=== PATIENT | female | born 1955 | race Two or more races ===

== ENCOUNTER 2017-06-10 13:44 | Inpatient (IN) | payer MEDICAID, OTHER ==
[~2017-06-10] VITALS: Ht 165.1 cm; Wt 135.5 kg
[2017-06-10] MEDS ORDERED: LISI10TA4 PO (13:55)
[2017-06-10] MEDS ORDERED: HYDR12.55 PO (13:55)
[2017-06-10] MEDS ORDERED: APIDINJ2 SC (13:55)
[2017-06-10] MEDS ORDERED: VICT18IN SC (13:55)
[2017-06-10] MEDS ORDERED: ONDANSETRON 4MG/2ML VIAL (J2405) IV ONE ×2 (14:30→16:00)
[2017-06-10] MEDS ORDERED: MORPHINE 4 MG/ML 1ML SYRINGE IV ONE ×2 (14:30→16:00)
[2017-06-10 14:50] LABS: BASO # 0.1 K/mm3 (0.0-0.2); BASO % 0.5 % (0.0-1.0); EOS # 0.1 K/mm3 (0.0-0.50); EOS % 0.7 % (0.0-3.0); LARGE UNSTAINED CELL # 0.1 K/mm3 (0.0-0.4); LARGE UNSTAINED CELL % 0.7 % (0.0-4.0); LYMPH # 0.9 K/mm3 (1.5-4.5); LYMPH % 6.3 % (24.0-44.0); MEAN CORPUSCULAR HEMOGLOBIN 27.3 pg (27.0-33.0); MEAN CORPUSCULAR HGB CONC 32.7 g/dl (32.0-36.5); MEAN CORPUSCULAR VOLUME 83.5 fl (80.0-96.0); MONO # 0.4 K/mm3 (0.0-0.8); MONO % 3.1 % (0.0-5.0); NEUTROPHILS # 11.2 K/mm3 (1.8-7.7); NEUTROPHILS % 88.6 % (36.0-66.0); PLATELET COUNT, AUTOMATED 356 k/mm3 (150-450); RED CELL DISTRIBUTION WIDTH 14.7 % (11.5-14.5); WHITE BLOOD COUNT 12.6 K/mm3 (4.0-10.0)
[2017-06-10 15:44] LABS: ALBUMIN 3.8 GM/DL (3.2-5.2); ALKALINE PHOSPHATASE 100 U/L (45-117); ALT/SGPT 26 U/L (12-78); ANION GAP 8 MEQ/L (8-16); AST/SGOT 14 U/L (15-37); BILIRUBIN,DIRECT 0.2 MG/DL (0.0-0.2); BILIRUBIN,TOTAL 0.7 MG/DL (0.2-1.0); BLOOD UREA NITROGEN 16 MG/DL (7-18); CALCIUM LEVEL 9.6 MG/DL (8.8-10.2); CARBON DIOXIDE LEVEL 28 MEQ/L (21-32); CHLORIDE LEVEL 102 MEQ/L (98-107); CREATININE FOR GFR 0.88 MG/DL (0.55-1.02); GLOMERULAR FILTRATION RATE > 60.0 (>45); GLUCOSE, FASTING 115 MG/DL (80-110); POTASSIUM SERUM 4.2 MEQ/L (3.5-5.1); SODIUM LEVEL 138 MEQ/L (136-145); TOTAL PROTEIN 7.6 GM/DL (6.4-8.2)
--- NOTE | 2017-06-10 16:00 | REP ---
CT of the abdomen and pelvis without IV and oral contrast: There are no comparison studies. The visualized lung jones are unremarkable. The hepatic parenchyma is homogeneous. The gallbladder is distended measuring up to 5.1 cm in diameter. This is hydrops by size criteria. There is no gallbladder wall thickening. However, there are multiple small gallbladder calculi. No biliary duct dilatation is identified by CT. The pancreas and spleen are normal size and unremarkable. There is no hydronephrosis. There are no renal or ureteral calculi. The abdominal aorta is unremarkable. There is no bowel distension. Mesentery is unremarkable. Pelvis: The appendix is unremarkable. The patient has a hysterectomy. The inferior pelvis is obscured from beam hardening artifact arising from the right hip arthroplasty. This obscures the vaginal cuff and adnexa. The pelvic bowel loops are unremarkable. Impression: Distended gallbladder compatible with hydrops. Multiple gallbladder calculi. No gallbladder wall thickening or biliary duct dilatation. No pericholecystic fluid. Consider right upper quadrant ultrasound. No hydronephrosis or renal collecting system calculi. Right hip arthroplasty. Signed by Glen Angeles MD 06/10/2017 03:52 P
--- NOTE | 2017-06-10 16:56 | REP ---
REASON: Right upper quadrant pain. COMPARISON: None. Previous CT scan of the abdomen obtained earlier today showed cholelithiasis and an enlarged gallbladder. Multiple ultrasonographic images of the gallbladder show a mildly enlarged gallbladder with multiple echogenic foci within the gallbladder lumen which are mobile, casting acoustic shows consistent with cholelithiasis. There is no pericholecystic edema. The gallbladder wall is mildly thickened at 4 mm. The common bile duct measures 8 mm. Multiple ultrasonographic images of the liver show diffuse increased echoes throughout the hepatic parenchyma. The imaged portion of the pancreas and right kidney are unremarkable. IMPRESSION: Cholelithiasis and a mildly thickened gallbladder wall which is most likely from chronic change but needs to be correlated clinically. The common bile duct is upper limits of normal for the patient's age at 8 mm. Signed by Willy Morley DO 06/11/2017 04:57 P
[2017-06-10] MEDS ORDERED: SODIUM CHLORIDE 0.9% 1000 ML IV ONE (17:00)
[2017-06-10] MEDS ORDERED: FURO20TA2 PO (17:13)
[2017-06-10] MEDS ORDERED: ASPI1TAB15 PO (17:13)
[2017-06-10] MEDS ORDERED: LOVA10TA PO (17:13)
[2017-06-10] MEDS ORDERED: HYDR25TAB PO (17:13)
[2017-06-10] MEDS ORDERED: OXYB15TA PO (17:13)
[2017-06-10] MEDS ORDERED: VITMTA PO (17:13)
[2017-06-10] MEDS ORDERED: MOM 30ML SUSPENSION UDC PO PRN (17:45)
[2017-06-10] MEDS ORDERED: MORPHINE 2 MG/ML 1ML SYRINGE IV PRN (17:45)
[2017-06-10] MEDS ORDERED: ONDANSETRON 4MG/2ML VIAL (J2405) IV PRN (17:45)
[2017-06-10] MEDS ORDERED: ACETAMINOPHEN TAB 650MG DOSE (2X325MG) PO PRN (17:45)
[2017-06-10] MEDS ORDERED: GLUCOSE 4 GM CHEW TABLET PO PRN (21:00)
[2017-06-10] MEDS ORDERED: GLUCAGON FOR INJ 1 MG VIAL (J1610) SC PRN (21:00)
[2017-06-10] MEDS ORDERED: DEXTROSE 50% 50 ML SYRINGE IV PRN (21:00)
[2017-06-10] MEDS ORDERED: hydroCHLOROthiazide 25 MG TAB PO SCH (21:00)
[2017-06-10] MEDS ORDERED: LISINOPRIL 10 MG TAB PO SCH (21:00)
[2017-06-10] MEDS: NORCO, ANEXSIA 5/325MG TABLET (HYDROcodone/ACETAMINOPHEN) PO PRN (21:14)
[2017-06-10 21:45] VITALS: BP 121/68
[2017-06-10] MEDS: metroNIDAZOLE 500 MG in APPROPRIATE DILUENT 1 EA IV SCH (22:10)
[2017-06-10] MEDS: PANTOPRAZOLE 40MG INJ (PROTONIX) (C9113) IV SCH (22:10)
[2017-06-10] MEDS: LR 1,000 ML IV SCH (22:42)
[2017-06-10] MEDS: CIPROFLOXACIN 400 MG in APPROPRIATE DILUENT 1 EA IV SCH (22:42)
[2017-06-10 22:43] VITALS: BP 116/75
[2017-06-10] MEDS: HEPARIN SOD (PORCINE) 5000 UNITS/ML VIAL SC SCH (22:43)
[2017-06-10] MEDS: oxyBUTYnin *DITROPAN XL* 5 MG TABCR PO SCH (22:45)
[2017-06-10] MEDS: SIMVASTATIN 10 MG TAB PO SCH (23:00)
[2017-06-10] MEDS: FUROSEMIDE 20 MG TAB PO SCH (23:00)
[2017-06-10] MEDS: SENOKOT S TAB PO SCH (23:00)
[2017-06-11] VITALS (8 sets, daily range): BP systolic 97–121; BP diastolic 51–61
[2017-06-11] MEDS: metroNIDAZOLE 500 MG in APPROPRIATE DILUENT 1 EA IV SCH ×4 (01:00→18:00)
[2017-06-11] MEDS: LR 1,000 ML IV SCH ×2 (01:37→09:39)
[2017-06-11] MEDS: HEPARIN SOD (PORCINE) 5000 UNITS/ML VIAL SC SCH ×3 (06:23→21:33)
[2017-06-11] MEDS: KETOROLAC 30 MG/ML VIAL (J1885) IV PRN (06:30)
[2017-06-11] MEDS: NORCO, ANEXSIA 5/325MG TABLET (HYDROcodone/ACETAMINOPHEN) PO PRN (06:31)
[2017-06-11 07:00] LABS: MEAN CORPUSCULAR HEMOGLOBIN 28.3 pg (27.0-33.0); MEAN CORPUSCULAR HGB CONC 33.4 g/dl (32.0-36.5); MEAN CORPUSCULAR VOLUME 84.8 fl (80.0-96.0); RED CELL DISTRIBUTION WIDTH 14.8 % (11.5-14.5); WHITE BLOOD COUNT 8.6 K/mm3 (4.0-10.0)
[2017-06-11 07:34] LABS: ALBUMIN/GLOBULIN RATIO 0.88 (1.00-1.93); ALKALINE PHOSPHATASE 89 U/L (45-117); ALT/SGPT 24 U/L (12-78); ANION GAP 5 MEQ/L (8-16); AST/SGOT 11 U/L (15-37); BLOOD UREA NITROGEN 16 MG/DL (7-18); CALCIUM LEVEL 8.6 MG/DL (8.8-10.2); CARBON DIOXIDE LEVEL 29 MEQ/L (21-32); CHLORIDE LEVEL 104 MEQ/L (98-107); CREATININE FOR GFR 0.77 MG/DL (0.55-1.02); GLOMERULAR FILTRATION RATE > 60.0 (>45); GLUCOSE, FASTING 117 MG/DL (80-110); MAGNESIUM LEVEL 2.2 MG/DL (1.8-2.4); SODIUM LEVEL 138 MEQ/L (136-145); TOTAL PROTEIN 6.4 GM/DL (6.4-8.2)
[2017-06-11] MEDS: SENOKOT S TAB PO SCH ×2 (08:07→21:33)
[2017-06-11] MEDS: CIPROFLOXACIN 400 MG in APPROPRIATE DILUENT 1 EA IV SCH ×2 (08:07→21:33)
[2017-06-11] MEDS: PANTOPRAZOLE 40MG INJ (PROTONIX) (C9113) IV SCH (08:08)
--- NOTE | 2017-06-11 08:10 | HPE ---
DATE OF ADMISSION: 06/10/2017 CHIEF COMPLAINT: Severe abdominal pain. HISTORY OF PRESENT ILLNESS: The patient is a 62-year-old female who presents with sudden onset of sharp severe abdominal pain in the right upper quadrant radiating around to the right back that started at 7 o'clock this morning. It has been a constant persistent pain and has not improved since this morning. She has been seen in the emergency room. Vitals are stable. Labs are not very significant other than a slightly elevated white count at 12.6 and ultrasound shows gallstones with some wall thickening. Because of that, I was asked to evaluate. She says that she has had right upper quadrant abdominal pains going on for over 30 years. She has known she has had stones in the past, but she has never had any surgery for them. She is a type 1 diabetic, but she is fairly well-controlled on her own. No other significant problems. Denies any acid reflux or heartburn. No previous upper abdominal surgery. Denies any fever, sweats or chills. She has never had any pain this severe in the past. She has tried morphine numerous times in the emergency room and it is still not controlling her pain. Therefore, I was called to evaluate for possible admission and possible surgery. Currently, she has just received another dose of morphine and she is still saying her pain is 12 out of 10. She is exquisitely tender on exam. No other symptoms at this time. She denies any recent travel. No recent trauma. No change in diet. The only other abdominal surgeries were hysterectomy for uterine cancer that was done a couple of years ago. She underwent radiation postsurgery, but she has not had any other problems since then. ALLERGIES: TAPE. MEDICATIONS: Please see med record. PAST MEDICAL HISTORY: 1. Type 1 diabetes. 2. Hypertension. 3. Hyperlipidemia. 4. Uterine cancer. PAST SURGICAL HISTORY: 1. Total hysterectomy. 2. Right hip surgery. SOCIAL HISTORY: Denies drug, alcohol or tobacco abuse. FAMILY HISTORY: Noncontributory. REVIEW OF SYSTEMS: Per positives and negatives as stated in history of present illness (HPI). PHYSICAL EXAMINATION: General: Alert and oriented times three. No acute distress. Vitals: Temperature 99, pulse 76, respirations 20, blood pressure 119/63, pulse oximetry 100 on room air . HEENT: Pupils equal round and react to light accommodation. Heart: S1, S2. Regular rate and rhythm. Lungs: Clear to auscultation bilaterally. Abdomen: Soft. Tender to palpation right upper quadrant and right flank. There is localized guarding. No signs of generalized peritonitis. Extremities: No clubbing, cyanosis or edema. LABORATORY DATA: White count 12.6, hemoglobin 13.5, platelets 356, creatinine 0.88, glucose 115, total bilirubin 0.7 and direct 0.2, AST 14, ALT 26, lipase 131. IMAGING STUDIES: Ultrasound of the gallbladder shows cholelithiasis and a mildly thickened gallbladder wall, likely from chronic changes. No signs of pericholecystic fluid. Common bile duct [address] of abdomen and pelvis showed a distended gallbladder compatible with likely hydrops. Multiple gallbladder calculi. No signs of wall thickening or biliary duct dilatation. No hydronephrosis or renal collecting system calculi. ASSESSMENT/PLAN: The patient is 62-year-old female, type 1 diabetic, with severe right upper quadrant abdominal pain, slightly elevated white count and otherwise her labs are essentially normal. Ultrasound showed stones with a mildly thickened gallbladder wall and dilated gallbladder on CT scan. This is all likely related to acute calculus cholecystitis with a history of chronic cholecystitis. Recommendation at this time is for hospital admission. We will continue to monitor the patient overnight. I will have the medicine team consult for her to keep track of her diabetes. She can have clear liquids tonight. She will be nothing by mouth (n.p.o.) after midnight. Will plan for likely laparoscopic cholecystectomy tomorrow afternoon.
--- NOTE | 2017-06-11 10:32 | CR ---
DATE OF CONSULTATION: 06/10/2017 CHIEF COMPLAINT: 62-year-old female coming in complaining of flank pain and noted to have acute cholecystitis, admitted under general surgery and hospitalist was consulted for medical management. HISTORY OF PRESENT ILLNESS: This is a 62-year-old female with significant past medical history of insulin-dependent diabetes, who has an insulin pump and the patient is well educated and compliant with her machine with comorbidities of hypertension, hyperlipidemia, bladder incontinence, and history of uterine cancer, status post hysterectomy, currently no acute disease, who presents complaining of back pain and was diagnosed with acute cholecystitis. The patient is resting comfortably in the emergency room. Denies any acute nausea or vomiting at this time, but did have a history of nausea at home. At this time, has tolerable pain. No acute complaints at this time. The patient describes a pain that is constant, achy and squeezing like symptoms. The patient does have a history of gallbladder history for the past 20 years but has done well without any acute problems until today. Denies any fever, diarrhea, or dysuria. REVIEW OF SYSTEMS: Ten-point review of systems is negative other than those described in the history of present illness. PAST MEDICAL HISTORY: Significant for uterine cancer, status post hysterectomy. Currently no active disease. Hypertension, diabetes, hyperlipidemia, bladder incontinence. SURGICAL HISTORY: Includes hysterectomy, right hip replacement, carpal tunnel surgery of the hands. FAMILY MEDICAL HISTORY: Significant for father with lung cancer. Mother with chronic obstructive pulmonary disease (COPD), hypertension and suspected diabetes. They were both smokers. SOCIAL HISTORY: The patient denies smoking, drinking or drug abuse. ALLERGIES: TAPE. MEDICATIONS FROM HOME: - Apidra, using insulin pump - aspirin 81 mg by mouth at night - furosemide 20 mg daily - hydrochlorothiazide 25 mg by mouth at night - Victoza 1.8 subcutaneously at night - Lisinopril 10 mg at night - Lovastatin 10 mg by mouth at night - multivitamin one tablet at nighttime - oxybutynin 15 mg by mouth at night PHYSICAL EXAMINATION: In terms of physical examination, her vital signs are as follows: Temperature 98.6, heart rate 76, respiratory rate of 18, saturating 96% on room air. Blood pressure is 116/75. These are the last vitals. HEENT: Normocephalic. No trauma noted. Inspection of the eyes, nose and throat normal. Pupils equal, round, and reactive to light and accommodation. Mucosa is moist. Neck is supple. No tracheal deviation. CARDIAC: S1, S2. Regular rate and rhythm. Pulses present. LUNGS: Equal air entry. Denies any wheezes, rales or rhonchi. ABDOMEN: Soft. Tender on palpation, especially in the right upper quadrant. Slight guarding but not peritoneal rigidity. EXTREMITIES: Lower extremities with no significant pitting edema at this time. NEUROLOGIC: The patient is currently awake, alert, oriented times three. Cranial nerves are grossly intact. Motor and sensory is intact. PSYCHIATRIC: Normal mood and affect for current situation. Very well aware of her medical condition and treatments. DIAGNOSTIC STUDIES: The patient had a WBC of 12.6, hemoglobin and hematocrit within normal, platelet count within normal. Complete metabolic profile has been normal except for a glucose of 115. AST is 14. UA did show trace ketones, otherwise negative for urinary tract infection (UTI). The patient did have an ultrasound of her gallbladder. As per radiology, this showed cholelithiasis and a mildly thickened gallbladder wall, which is likely from the chronic changes but needs to be correlated clinically. Also, the common bile duct is in the upper limits of normal for the patient's age at 8 mm. The patient also had a CT of the abdomen, which showed as per radiology distended gallbladder compatible with eye drops, multifocal gallbladder calculi. No gallbladder wall thickening or biliary duct dilatation. No pericholecystic fluid. Consider right upper quadrant ultrasound. No hydronephrosis or renal collecting system calculi. Right hip arthroplasty. ASSESSMENT AND PLAN: This is a pleasant 62-year-old female with a significant past medical history of diabetes utilizing insulin pump, hypertension, hyperlipidemia, bladder incontinence, who was being admitted under the surgical care for acute cholecystitis. The hospitalist was consulted for medical management. 1. Acute cholecystitis. Defer further management to Dr. Blackwell. The patient is on Cipro and Flagyl at this time. 2. Diabetes. Insulin dependent. The patient is very compliant with insulin pump and she mentions that she has utilized insulin pump during surgery in the past and requests that this be done again. I did explain the risk and benefit, but due to the patient's high knowledge of her insulin pump and history of having had insulin pump usage in the past surgeries, we will have a nursing order for the patient to resume her insulin pump under her own care if okay with the surgeon. The patient is going to have surgery and therefore may move the position of the insulin pump as directed by Dr. Blackwell as needed. 3. Hypertension. Lisinopril, hydrochlorothiazide and furosemide was resumed. Closely monitor renal function and for dehydration. 4. Hyperlipidemia. On statin. 5. Bladder incontinence. Oxybutynin. 6. Deep vein thrombosis (DVT) prophylaxis as per surgery. Aspirin has been held, as per surgery. We will defer reinitiation of anticoagulant to the surgeon.
--- NOTE | 2017-06-11 12:10 | IPN ---
DATE OF VISIT: 06/11/2017 SUBJECTIVE: Patient seen and examined in the room today. Patient stated her achy type of pain still persists from the right back, radiate to the right abdomen. The pain has been persistent with direct pressure, but it has been improving and since admission it is more tolerable now. Still having intermittent nausea. No events reported since admission. OBJECTIVE: VITAL SIGNS: Temperature 99, pulse is 77, respiration 20, blood pressure is 97/52, pulse oximetry is 93% in room air. GENERAL: Morbid obese. No sign of acute distress. Alert and oriented times three. HEENT: Normocephalic, atraumatic. Extraocular motor grossly intact. CARDIOVASCULAR: Positive S1, S2, regular rate. LUNGS: Clear to auscultation bilaterally. ABDOMEN: Tenderness to palpation in the right upper quadrant. No rebound. Abdomen is soft. Bowel sounds present. EXTREMITIES: No edema. No sign of cyanosis. LABORATORY DATA: WBC is 8.6, hemoglobin 11.3, hematocrit 33.9, platelet count is 275. Sodium 138, potassium 4,chloride is 104, carbon dioxide 29, BUN 16, creatinine 0.77, GFR greater than 60, fasting glucose 117, calcium is 8.6, magnesium 2.2, total bilirubin is 1, AST 11, ALT 24, alkaline phosphatase 89, total protein 6.4, albumin 3. ASSESSMENT AND PLAN: 1. Acute calculus cholecystitis with a history of chronic cholecystitis. Patient has a scheduled laparoscopic procedure by Dr. Blackwell today in the afternoon. At the baseline, patient does not have any significant cardiovascular disease and patient denies any significant pulmonary problem. At the baseline, patient is able to walk more than a two block distance and climb not more than one flight of stair. Patient also had surgery in the past and no issue with anesthesia. Patient do have type 1 diabetes. Patient is also using insulin pump. Her glucose level is in very good control. At this moment, patient is optimized for the procedure. 2. Type 1 diabetes. Patient has an insulin pump. Patient has expressed utilizing the insulin pump during surgery in the past and per documentation patient requests. This will done again for this current procedure. Will refer the discussion to the surgeon and the patient. Empirically, patient is cover with Cipro and Flagyl. 3. Hypertension. At home, patient is taking lisinopril, hydrochlorothiazide and Lasix. Currently, patient is nothing by mouth, started on intravenous (IV) fluid. This morning patient actually have soft blood pressure. Will hold all the blood pressure medication. We will resume it at the appropriate time. 4. History of hyperlipidemia. On statins. 5. History of bladder incontinence. On oxybutynin. 6. Deep venous thrombosis (DVT) prophylaxis as per the surgeon. Currently, patient has thromboembolic deterrent (MANJULA), sequential and compression device.
--- NOTE | 2017-06-11 13:58 | ECGEPIP ---
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
[2017-06-11] MEDS ORDERED: BUPIVACAINE/EPIN 0.25% 30 ML VIAL As Ordered ONE (16:20)
[2017-06-11] MEDS ORDERED: PROPOFOL 200 MG/20 ML VIAL As Ordered ONE (16:50)
[2017-06-11] MEDS ORDERED: ROCURONIUM BROMIDE 50 MG/5 ML VIAL/SYRINGE As Ordered ONE ×2 (16:50→18:07)
[2017-06-11] MEDS ORDERED: LIDOCAINE 2% INJ 100 MG/5 ML SDV (FOR ANES.) As Ordered ONE (16:50)
[2017-06-11] MEDS ORDERED: fentaNYL 250 MCG/5 ML INJECTION (J3010) As Ordered ONE (16:51)
[2017-06-11] MEDS ORDERED: MIDAZOLAM INJ 2 MG/2 ML VIAL (J2250) As Ordered ONE (16:51)
[2017-06-11] MEDS ORDERED: PHENYLephrine HCL 500 MCG/5 ML (100MCG/ML) SYRINGE (J2370) As Ordered ONE ×2 (17:28→18:07)
[2017-06-11] MEDS ORDERED: GLYCOPYRROLATE INJ 0.2 MG/ML 2 ML VIAL As Ordered ONE (17:37)
[2017-06-11] MEDS ORDERED: NEOSTIGMINE 1MG/ML 5 ML SYRINGE (J2710) As Ordered ONE (17:37)
[2017-06-11] MEDS ORDERED: ONDANSETRON 4MG/2ML VIAL (J2405) As Ordered ONE (17:38)
[2017-06-11] MEDS ORDERED: KETOROLAC 60 MG/2 ML VIAL (J1885) As Ordered ONE (17:38)
[2017-06-11] MEDS ORDERED: SUGAMMADEX SODIUM 500 MG/5 ML VIAL (BRIDION) As Ordered ONE (18:27)
[2017-06-11] MEDS ORDERED: fentaNYL 100 MCG/2 ML INJECTION (J3010) As Ordered ONE (19:21)
[2017-06-11] MEDS: fentaNYL 100 MCG/2 ML INJECTION (J3010) IV PRN ×2 (19:26→19:35)
[2017-06-11] MEDS ORDERED: LR 1,000 ML IV SCH (19:30)
[2017-06-11] MEDS ORDERED: PERCOCET 5MG/325MG TAB PO PRN (19:30)
[2017-06-11] MEDS ORDERED: ONDANSETRON 4MG/2ML VIAL (J2405) IV PRN (19:30)
[2017-06-11] MEDS: SIMVASTATIN 10 MG TAB PO SCH (21:00)
[2017-06-11] MEDS: oxyBUTYnin *DITROPAN XL* 5 MG TABCR PO SCH (21:34)
[2017-06-12] MEDS: metroNIDAZOLE 500 MG in APPROPRIATE DILUENT 1 EA IV SCH ×2 (00:10→05:30)
[2017-06-12] MEDS: NORCO, ANEXSIA 5/325MG TABLET (HYDROcodone/ACETAMINOPHEN) PO PRN ×3 (00:17→17:11)
[2017-06-12 00:30] VITALS: BP 91/55
[2017-06-12 04:00] VITALS: BP 98/60
[2017-06-12] MEDS: LR 1,000 ML IV SCH (05:31)
[2017-06-12] MEDS: HEPARIN SOD (PORCINE) 5000 UNITS/ML VIAL SC SCH ×3 (05:31→21:01)
[2017-06-12] MEDS: KETOROLAC 30 MG/ML VIAL (J1885) IV PRN (05:43)
[2017-06-12 06:47] LABS: MEAN CORPUSCULAR HEMOGLOBIN 27.9 pg (27.0-33.0); MEAN CORPUSCULAR HGB CONC 32.7 g/dl (32.0-36.5); MEAN CORPUSCULAR VOLUME 85.1 fl (80.0-96.0); RED CELL DISTRIBUTION WIDTH 14.5 % (11.5-14.5); WHITE BLOOD COUNT 7.8 K/mm3 (4.0-10.0)
[2017-06-12 07:13] LABS: ALBUMIN 2.5 GM/DL (3.2-5.2); ALBUMIN/GLOBULIN RATIO 0.71 (1.00-1.93); ALKALINE PHOSPHATASE 114 U/L (45-117); ALT/SGPT 47 U/L (12-78); ANION GAP 5 MEQ/L (8-16); AST/SGOT 41 U/L (15-37); BILIRUBIN,TOTAL 1.6 MG/DL (0.2-1.0); BLOOD UREA NITROGEN 15 MG/DL (7-18); CALCIUM LEVEL 8.2 MG/DL (8.8-10.2); CARBON DIOXIDE LEVEL 30 MEQ/L (21-32); CHLORIDE LEVEL 102 MEQ/L (98-107); CREATININE FOR GFR 0.92 MG/DL (0.55-1.02); GLOMERULAR FILTRATION RATE > 60.0 (>45); GLUCOSE, FASTING 175 MG/DL (80-110); MAGNESIUM LEVEL 1.7 MG/DL (1.8-2.4); POTASSIUM SERUM 4.3 MEQ/L (3.5-5.1); SODIUM LEVEL 137 MEQ/L (136-145)
[2017-06-12 08:00] VITALS: BP 99/58
[2017-06-12] MEDS: SENOKOT S TAB PO SCH ×2 (08:16→21:01)
[2017-06-12] MEDS: PANTOPRAZOLE 40MG INJ (PROTONIX) (C9113) IV SCH (08:17)
[2017-06-12 08:54] LABS: BILIRUBIN,DIRECT 0.7 MG/DL (0.0-0.2)
[2017-06-12] MEDS: FUROSEMIDE 20 MG TAB PO SCH (09:00)
[2017-06-12 12:00] VITALS: BP 94/57
[2017-06-12 16:00] VITALS: BP 124/61
[2017-06-12] MEDS ORDERED: MAG SULF 1GM/100ML (MAG RUN) 1 GM in APPROPRIATE DILUENT 1 EA IV ONE (16:00)
--- NOTE | 2017-06-12 16:28 | IPN ---
DATE: 06/12/2017 SUBJECTIVE: The patient is seen and examined in the room today. The patient had a cholecystectomy performed yesterday night. In the morning, the patient still feels very tired because of pain medication and the surgery. Denies any acute complaints. Pain is manageable. No overnight events reported. OBJECTIVE: VITAL SIGNS: Temperature is 98.1, pulse is 72, respirations 20, blood pressure is 99/58, pulse oximetry is 98% with 2 liters nasal cannula. GENERAL: Fatigued. Alert and oriented times three. HEENT: Normocephalic, atraumatic. Extraocular motor grossly intact. CARDIOVASCULAR: Distant heart sounds. Positive S1, S2. Regular rate. LUNGS: Clear to auscultation bilaterally. ABDOMEN: There is a small dressing in the front abdomen. Dressing is clean and dry. Bowel sounds present. Abdomen is soft. EXTREMITIES: No edema. No sign of cyanosis. LABORATORY DATA: WBC 7.8, hemoglobin 10.9, hematocrit 33.3, platelet count is 254. Sodium is 137, potassium 4.3, chloride is 102, carbon dioxide 30, BUN 15, creatinine 0.92, GFR greater than 60, fasting glucose is 175, calcium is 8.2, magnesium 1.7, total bilirubin is 1.6, direct bilirubin is 0.7, AST 41, ALT is 47, alkaline phosphatase is 114, total protein 6, albumin 2.5, lipase is 67. ASSESSMENT AND PLAN: 1. Acute calculus cholecystitis with a history of chronic cholecystitis. The patient had a laparoscopic procedure by Dr. Blackwell yesterday evening. The patient recovered well from the procedure. Will defer the diet, pain control, activity level to the primary surgical team. 2. Type 1 diabetes. The patient had an insulin pump, which is running right now. Will continue to follow the patient's glucose. 3. Hypertension. Currently, the patient is hypotensive compared to her baseline. At home, the patient is taking Lasix 20 mg by mouth every 2 days, hydrochlorothiazide 25 mg by mouth nightly and lisinopril 10 mg by mouth nightly. Due to the patient's systolic blood pressure, those blood pressure medications will continue to be on hold. 4. History of bladder incontinence, on oxybutynin. 5. Deep vein thrombosis (DVT) prophylaxis. The patient has thromboembolism deterrents (TEDs), sequential compression device.
[2017-06-12 20:00] VITALS: BP 105/59
[2017-06-12] MEDS: SIMVASTATIN 10 MG TAB PO SCH (21:00)
[2017-06-12] MEDS: oxyBUTYnin *DITROPAN XL* 5 MG TABCR PO SCH (21:01)
[2017-06-13] VITALS: BP 104/52
[2017-06-13] MEDS: NORCO, ANEXSIA 5/325MG TABLET (HYDROcodone/ACETAMINOPHEN) PO PRN (03:18)
[2017-06-13 04:00] VITALS: BP 106/63
[2017-06-13] MEDS: HEPARIN SOD (PORCINE) 5000 UNITS/ML VIAL SC SCH (05:32)
[2017-06-13 08:00] VITALS: BP 138/70
--- NOTE | 2017-06-13 08:10 | RO ---
DATE OF PROCEDURE: 06/11/2017 PREOPERATIVE DIAGNOSIS: Acute calculus cholecystitis. POSTOPERATIVE DIAGNOSIS: Acute calculus cholecystitis. PROCEDURE: Laparoscopic cholecystectomy. SURGEON: Dr. Glen Blackwell BIBLIOGRAPHIC SERVICES SPECIALIST: Dr. Abhilash Puente ANESTHESIA: General. ESTIMATED BLOOD LOSS: 10 mL. COMPLICATIONS: None. INDICATIONS FOR PROCEDURE: The patient is a 62-year-old female, type 1 diabetic, presents with severe right upper quadrant abdominal pain, found to have enlarged gallbladder with multiple stones and a thickened wall. She was diagnosed with acute calculus cholecystitis. Recommendation was to proceed with laparoscopic, possible open cholecystectomy. Risks and benefits of procedure not limited to but including bleeding, infection, hernia formation, damage to surrounding structures, need for further surgery discussed in detail with the patient, informed consent was obtained and procedure was planned. DESCRIPTION OF PROCEDURE: The patient was brought back to operating room three after sufficient sedation. The abdomen was sterilely prepped and draped. Next, a time-out was done to confirm proper patient, proper procedure. Following that, a stab incision was made in the left upper quadrant at Alejo's point. Veress needle was inserted and the abdomen was insufflated to 15 mmHg. Next, a 5 mm Optiview port was used to gain access to the abdomen superior to the umbilicus. Once the abdomen was entered, Veress needle site was examined. There were no signs of injury. Veress needle was then removed, 11 mm port placed subxiphoid, two 5 mm ports right upper quadrant. Gallbladder fundus was elevated up towards the right shoulder. A small hole was created in the gallbladder due to hydrops, and the fluid was allowed to leave so that it could be grasped easier. Omental adhesions were bluntly dissected free from the gallbladder fossa. Cystic duct and cystic artery were both then dissected free using blunt dissection. They were both doubly clipped and cut. Gallbladder was removed from the gallbladder fossa using electrocautery and brought out through the 11 mm port site in a 10 mm Endo Catch bag. Electrocautery was then used to control hemostasis on the liver bed that had a little bit of bleeding, 3 grams of Micheal was then placed; this controlled all the bleeding. Abdomen right upper quadrant was irrigated, abdomen was then desufflated. Skin incisions were closed with #4-0 Vicryl subcuticular sutures. The abdomen was cleaned and dried. Steri-Strips, 4x4 and tape were applied, thus ending procedure.
[2017-06-13 08:25] LABS: MEAN CORPUSCULAR HEMOGLOBIN 27.8 pg (27.0-33.0); MEAN CORPUSCULAR HGB CONC 32.5 g/dl (32.0-36.5); MEAN CORPUSCULAR VOLUME 85.6 fl (80.0-96.0); RED CELL DISTRIBUTION WIDTH 14.9 % (11.5-14.5); WHITE BLOOD COUNT 10.6 K/mm3 (4.0-10.0)
[2017-06-13 08:42] LABS: ALBUMIN 2.3 GM/DL (3.2-5.2); ALBUMIN/GLOBULIN RATIO 0.64 (1.00-1.93); ALKALINE PHOSPHATASE 136 U/L (45-117); ALT/SGPT 39 U/L (12-78); ANION GAP 8 MEQ/L (8-16); AST/SGOT 26 U/L (15-37); BILIRUBIN,TOTAL 0.8 MG/DL (0.2-1.0); BLOOD UREA NITROGEN 16 MG/DL (7-18); CALCIUM LEVEL 8.2 MG/DL (8.8-10.2); CARBON DIOXIDE LEVEL 27 MEQ/L (21-32); CHLORIDE LEVEL 102 MEQ/L (98-107); CREATININE FOR GFR 0.65 MG/DL (0.55-1.02); GLOMERULAR FILTRATION RATE > 60.0 (>45); GLUCOSE, FASTING 137 MG/DL (80-110); MAGNESIUM LEVEL 2.3 MG/DL (1.8-2.4); POTASSIUM SERUM 3.6 MEQ/L (3.5-5.1); SODIUM LEVEL 137 MEQ/L (136-145); TOTAL PROTEIN 5.9 GM/DL (6.4-8.2)
[2017-06-13] MEDS: PANTOPRAZOLE 40MG INJ (PROTONIX) (C9113) IV SCH (08:49)
[2017-06-13] MEDS: SENOKOT S TAB PO SCH (08:49)
[2017-06-13] MEDS ORDERED: MAPA325T3 PO (11:08)
[2017-06-13] MEDS ORDERED: diphenhydrAMINE 25 MG CAP PO ONE (12:15)
[2017-06-13] MEDS ORDERED: BENA25TA10 PO (14:26)
[2017-06-13 16:00] VITALS: BP 143/75
--- NOTE | 2017-06-13 21:26 | IPN ---
DATE: 06/13/2017 SUBJECTIVE: Patient seen and examined in the morning and in the afternoon at the time of discharge. This morning during encounter the patient is complaining about weakness. The patient also complained about the rash and itchiness of right upper extremity and mid abdomen. The patient stated she has a history of allergy to the ADHESIVE ON THE TAPE. Later, the patient was planned for discharge in the afternoon. I received a notice from the nurse, stating the patient has decreased muscle strength and that she is afraid the patient may not be able to be discharged safely. I went to examine the patient personally. The patient does demonstrate some fullness when she tried to put her sock and shoe to her left foot. The patient walked limited short distance from the chair to the hospital bed. Due to concern for weakness, we recommended the patient to stay in the hospital if patient does not feel comfortable going home. Patient insists that she is feeling better and that she has the capacity to maintain her activities of daily living and she can take care of herself, and later the charge nurse and I walked with the patient in the hallway, and the patient did demonstrate gait stability through the long hallway in the pediatric department and later patient was discharged home. OBJECTIVE: VITAL SIGNS: Temperature is 99.3, pulse 87, respirations 18, blood pressure 143/75, pulse oximetry 97% on room air. GENERAL: Fatigued. No sign of discharge. Patient is alert and oriented times three. HEENT: Normocephalic, atraumatic. Extraocular motor grossly intact. CARDIOVASCULAR: Distant heart sounds. Positive S1, S2. Regular rate. LUNGS: Clear to auscultation bilaterally. ABDOMEN: There are multiple small dressings (five of them) in the front abdomen, dressings clean and dry; however, there is some rash and erythema along the mid lower abdomen. Abdomen is soft. DERMATOLOGIC: There is a rash located right proximal upper extremity just below the right arm pit. Multiple scratch phelps noted in the area. There is also multiple rash along the mid lower abdomen. MUSCULOSKELETAL: Positive swelling of bilateral lower extremities. LABORATORY DATA: WBC 10.6, hemoglobin 10.5, hematocrit 32.4, platelet count 262. Sodium 137, potassium 3.6, chloride 102, carbon dioxide 27, BUN 16, creatinine 0.65, GFR greater than 60, fasting glucose 137, calcium 8.2, magnesium 2.3. Total bilirubin is 0.8, AST 26, ALT 39, alkaline phosphatase 136. Total protein is 5.9, albumin 2.3. ASSESSMENT AND PLAN: 1. Acute calculous cholecystitis with history of chronic cholecystitis. The patient had a laparoscopic procedure by Dr. Blackwell. Today is postoperative day two. The patient had demonstrated gait instability and the patient is discharged today. 2. Type 2 diabetes on insulin pump. Blood glucose has been in the satisfactory control. 3. Hypertension. The patient is taking Lasix. Due to soft blood pressure, the patient is recommended to hold her lisinopril until evaluated by the primary care provider. 4. History of bladder incontinence. On oxybutynin. 5. Chronic lymphedema from a prior abdominal surgery resulting in chronic bilateral lower extremity swelling. The patient has followup with lymphedema clinic multiple times out of state. The patient recently moved to [place], [place]. 6. Deep venous thrombosis (DVT) prophylaxis. The patient is discharged home today. DISPOSITION: The patient recently moved to [place]. The patient has not established with any primary care provider. Per patient, there may be issue regarding her insurance that resulted in delaying establishing with [facility]. Our department staff have kindly assisted and established a new primary care provider for the patient. The patient will follow in [facility] on 06/24[facility]2017. The patient is scheduled to followup with Dr. Blackwell for postoperative followup on 06/26/2017.
--- NOTE | 2017-06-17 15:30 | DSES ---
DATE OF ADMISSION: 06/10/2017 DATE OF DISCHARGE: 06/13/2017 ADMISSION DIAGNOSIS: Acute cholecystitis. DISCHARGE DIAGNOSIS: Acute cholecystitis. HOSPITAL COURSE: The patient is a 62-year-old female who presented to the emergency room on 06/10/2017 with the findings of acute cholecystitis. She had an elevated white count of 12.6, severe right upper quadrant pain, and she had ultrasound findings showing a thickened gallbladder wall and multiple stones. Recommendation was to proceed with laparoscopic cholecystectomy. She was taken to the operating room for laparoscopic cholecystectomy on 06/11/2017. She had an uneventful surgery and no complications. Postoperatively, she was started back on a regular diet and she was able to ambulate. IV fluids were stopped. She continued to improve. On the morning of 06/12/2017, her laboratories were better. Her pain was essentially gone from the right upper quadrant. She just had incisional site pain. No other complications. She just felt unmotivated. It was very difficult to get her up to walk in the halls or get out of bed, so she was kept overnight one more day. By the morning of 06/13/2017, she still felt unmotivated. I gave her the option of physical therapy evaluation and possible discharge to a halfway versus going home on her own. She was hesitant and did not feel like going home. The nurses reported that she was unstable on her feet and it took her almost two hours to get her shoes on when she was getting out of bed. However, when we told her that she was going to have to stay overnight again, she finally got up and started to walk around the halls without any difficulty and looked completely stable on her feet. The nursing supervisor blood donor recruiters was also there to witness that. It appeared that she is just having lack of motivation rather than a lack of ability, so she was discharged home and will followup with me in the office in two weeks.
== END 2017-06-13 18:25 | disposition home or self-care (01) | DRG 263 ==
LOC: M ED 15:02 → M ED INP 17:37 → M PED 21:44
PROVIDERS: ADMIT Surgery; ATTEND Surgery
PROC: 0FT44ZZ Resection of Gallbladder, Percutaneous Endoscopic Approach (ICD-10-PCS; principal; 2017-06-11 18:00)
DX: K81.0 Acute cholecystitis (principal); I10 Essential (primary) hypertension; E10.9 Type 1 diabetes mellitus without complications; E78.4 Other hyperlipidemia; Z85.42 Personal history of malignant neoplasm of other parts of uterus; Z79.899 Other long term (current) drug therapy; Z79.82 Long term (current) use of aspirin; R32 Unspecified urinary incontinence; E66.01 Morbid (severe) obesity due to excess calories; Z68.42 Body mass index [BMI] 45.0-49.9, adult

== ENCOUNTER 2017-06-16 11:51 | Emergency (ER) | payer MEDICAID, SELFPAY ==
[~2017-06-16] VITALS: Ht 165.1 cm; Wt 127.2 kg
[~2017-06-16 11:51] MED LIST: APIDINJ2 SC; ASPI1TAB15 PO; BENA25TA10 PO; FURO20TA2 PO; HYDR12.55 PO; HYDR25TAB PO; LISI10TA4 PO; LOVA10TA PO; MAPA325T3 PO; OXYB15TA PO; VICT18IN SC; VITMTA PO
[2017-06-16] MEDS ORDERED: LOPE2TAB3 PO (12:16)
[2017-06-16] MEDS ORDERED: NS 1,000 ML IV ONE (14:15)
[2017-06-16 15:11] LABS: BASO # 0.1 K/mm3 (0.0-0.2); BASO % 0.5 % (0.0-1.0); EOS # 0.4 K/mm3 (0.0-0.50); EOS % 3.8 % (0.0-3.0); LARGE UNSTAINED CELL # 0.2 K/mm3 (0.0-0.4); LARGE UNSTAINED CELL % 1.9 % (0.0-4.0); LYMPH # 1.3 K/mm3 (1.5-4.5); LYMPH % 9.7 % (24.0-44.0); MEAN CORPUSCULAR HEMOGLOBIN 27.7 pg (27.0-33.0); MEAN CORPUSCULAR HGB CONC 33.2 g/dl (32.0-36.5); MEAN CORPUSCULAR VOLUME 83.5 fl (80.0-96.0); NEUTROPHILS # 8.2 K/mm3 (1.8-7.7); PLATELET COUNT, AUTOMATED 351 k/mm3 (150-450); RED CELL DISTRIBUTION WIDTH 14.7 % (11.5-14.5)
[2017-06-16 15:18] LABS: ALBUMIN 2.4 GM/DL (3.2-5.2); ALBUMIN/GLOBULIN RATIO 0.73 (1.00-1.93); ALKALINE PHOSPHATASE 230 U/L (45-117); ALT/SGPT 44 U/L (12-78); AMYLASE 11 U/L (25-115); ANION GAP 10 MEQ/L (8-16); AST/SGOT 44 U/L (15-37); BILIRUBIN,DIRECT 0.3 MG/DL (0.0-0.2); BILIRUBIN,TOTAL 0.7 MG/DL (0.2-1.0); BLOOD UREA NITROGEN 10 MG/DL (7-18); CALCIUM LEVEL 8.6 MG/DL (8.8-10.2); CARBON DIOXIDE LEVEL 27 MEQ/L (21-32); CHLORIDE LEVEL 103 MEQ/L (98-107); CREATININE FOR GFR 0.69 MG/DL (0.55-1.02); GLOMERULAR FILTRATION RATE > 60.0 (>45); GLUCOSE, FASTING 143 MG/DL (80-110); POTASSIUM SERUM 4.1 MEQ/L (3.5-5.1); SODIUM LEVEL 140 MEQ/L (136-145); TOTAL PROTEIN 5.7 GM/DL (6.4-8.2)
[2017-06-16] MEDS ORDERED: BISACODYL 10 MG SUPP PR ONE (16:00)
[2017-06-16] MEDS ORDERED: SIMETHICONE 80 MG CHEW TAB PO ONE (16:00)
--- NOTE | 2017-06-16 16:06 | REP ---
ABDOMINAL SERIES: Supine and erect views of the abdomen demonstrate no free air and no compelling evidence for obstruction. Air is seen throughout the GI tract in a nonspecific pattern. Moderate fecal material is seen throughout the colon. Multiple mildly small bowel loops are seen. Metallic prosthesis was noted on the right hip. An accompanying view of the chest demonstrates basilar subsegmental atelectatic change. IMPRESSION: No free air. No compelling evidence for obstruction. Nonspecific bowel gas pattern. Moderate fecal retention. Bilateral lower lobe subsegmental atelectasis. Signed by Glen Ribeiro MD 06/17/2017 08:43 A
[2017-06-16] MEDS ORDERED: COLA100C5 PO (18:02)
[2017-06-16] MEDS ORDERED: MIRA3350 PO (18:02)
[2017-06-16] MEDS ORDERED: SIME1CAP5 PO (18:03)
[2017-06-16 18:16] VITALS: BP 119/58
== END 2017-06-16 18:20 | disposition home or self-care (01) ==
LOC: M ED 11:51
DX: K59.00 Constipation, unspecified (principal); E78.00 Pure hypercholesterolemia, unspecified; I10 Essential (primary) hypertension; E11.9 Type 2 diabetes mellitus without complications; Z85.42 Personal history of malignant neoplasm of other parts of uterus; Z79.82 Long term (current) use of aspirin; Z79.899 Other long term (current) drug therapy; Z91.89 Other specified personal risk factors, not elsewhere classified

== ENCOUNTER → 2017-08-20 | Outpatient (CLI) | payer OTHER ==
[~2017-08-20] MED LIST changes: +COLA100C5 PO; +LOPE2TAB3 PO; +MIRA3350 PO; +SIME1CAP5 PO
--- NOTE | 2017-08-21 15:23 | REP ---
Clinical: Hip pain. Technique: Neutral and frog lateral views of the right hip. Findings: Right hip arthroplasty. No acute fracture or dislocation. No periarticular calcifications or osteophytosis noted. Impression: Right hip replacement. Signed by Nathan Mosqueda MD 08/21/2017 03:14 P
== END ==
LOC: M RAD 11:53
PROVIDERS: ATTEND Family Medicine
DX: Z96.641 Presence of right artificial hip joint (principal)

== ENCOUNTER → 2017-08-29 | Outpatient (REF) | payer OTHER ==
[2017-08-29 14:20] LABS: ANION GAP 7 MEQ/L (8-16); BLOOD UREA NITROGEN 14 MG/DL (7-18); CALCIUM LEVEL 9.3 MG/DL (8.8-10.2); CARBON DIOXIDE LEVEL 29 MEQ/L (21-32); CHLORIDE LEVEL 101 MEQ/L (98-107); GLOMERULAR FILTRATION RATE > 60.0 (>45); GLUCOSE, FASTING 82 MG/DL (80-110); POTASSIUM SERUM 4.4 MEQ/L (3.5-5.1); SODIUM LEVEL 137 MEQ/L (136-145)
== END ==
LOC: M SFHCPLAZ 10:33
PROVIDERS: ATTEND Family Medicine
DX: E11.9 Type 2 diabetes mellitus without complications (principal)

== ENCOUNTER 2017-09-08 10:24 | Outpatient (RCR) | payer OTHER | END 2017-09-09 | LOC: M PT 10:24 | PROVIDERS: ATTEND Family Medicine | DX: Z51.89 Encounter for other specified aftercare (principal); Z51.81 Encounter for therapeutic drug level monitoring ==

== ENCOUNTER → 2017-09-29 | Outpatient (CLI) | payer OTHER ==
[~2017-09-29] MED LIST changes: +GASTROGRAFIN SOLUTION 30ML (Q9963) As Ordered ONE; +ISOVUE-370 76% 100ML VIAL (Q9967) As Ordered ONE
--- NOTE | 2017-09-29 10:17 | REP ---
Clinical: Abdominal pain and diarrhea. Technique: Axial contrast enhanced images from the lung bases to the pubic symphysis using oral and 100 ml Isovue 370 intravenous contrast material with coronal and sagittal re-formations. Comparison: 06/10/2017. Findings: Lung bases demonstrate chronic changes and trace right lower lobe atelectasis. Visualized portions of the heart and pericardium are normal / stable. Liver, spleen, pancreas, bilateral adrenal glands and kidneys are normal. Cholecystectomy noted with minimal compensatory biliary ductal dilatation. The enteric system is without obstruction or acute inflammatory process and a normal terminal ileum and appendix are identified in the right lower quadrant. Pelvis demonstrates normal bladder and evidence for prior hysterectomy. No ascites. No adenopathy. No free air. No solitary mass lesion. Abdominal aorta and vasculature appears normal. Surrounding musculoskeletal structures demonstrate age-related changes without focal osseous abnormality as well as evidence for prior right hip repair. Impression: Trace right basilar atelectasis. No acute abdominopelvic pathology appreciated. Signed by Nathan Mosqueda MD 09/29/2017 10:08 A
== END ==
LOC: M RAD 08:06
PROVIDERS: ATTEND Internal Medicine Gastroenterology
DX: R19.7 Diarrhea, unspecified (principal)
CPT/HCPCS: 74177; Q9963; Q9967

== ENCOUNTER 2017-10-06 12:15 | Outpatient (RCR) | payer OTHER ==
[~2017-10-06 12:15] MED LIST changes: -GASTROGRAFIN SOLUTION 30ML (Q9963) As Ordered ONE; -ISOVUE-370 76% 100ML VIAL (Q9967) As Ordered ONE
[2017-10-14] MEDS ORDERED: INSULADS INJ (12:10)
[2017-10-14] MEDS ORDERED: HYDR25TAB PO (12:10)
[2017-10-14] MEDS ORDERED: PANT40TA2 PO (12:10)
[2017-10-14] MEDS ORDERED: LISI10TA4 PO (12:10)
== END 2017-10-09 ==
LOC: M PT 12:15
PROVIDERS: ATTEND Family Medicine
DX: R29.6 Repeated falls (principal)

== ENCOUNTER → 2017-10-23 | Outpatient (CLI) | payer OTHER ==
[~2017-10-23] MED LIST changes: +INSULADS INJ; +PANT40TA2 PO
[2017-10-23 13:19] LABS: ANION GAP 7 MEQ/L (8-16); BLOOD UREA NITROGEN 17 MG/DL (7-18); CALCIUM LEVEL 8.9 MG/DL (8.8-10.2); CARBON DIOXIDE LEVEL 32 MEQ/L (21-32); CHLORIDE LEVEL 100 MEQ/L (98-107); CREATININE FOR GFR 0.78 MG/DL (0.55-1.02); GLOMERULAR FILTRATION RATE > 60.0 (>45); GLUCOSE, FASTING 82 MG/DL (80-110); POTASSIUM SERUM 3.9 MEQ/L (3.5-5.1); SODIUM LEVEL 139 MEQ/L (136-145)
== END ==
LOC: M LAB 11:44
PROVIDERS: ATTEND Family Medicine
DX: M79.89 Other specified soft tissue disorders (principal)

== ENCOUNTER → 2017-10-28 | Day surgery (SDC) | payer OTHER ==
[~2017-10-28] VITALS: Ht 165.1 cm; Wt 112.0 kg
[~2017-10-28] MED LIST changes: +LIDOCAINE 2% INJ 100 MG/5 ML SDV (FOR ANES.) As Ordered ONE; +NS 1,000 ML IV ONE; +PROPOFOL 500 MG/50 ML VIAL As Ordered ONE
--- NOTE | 2017-10-28 09:09 | ROOR ---
Patient Name: Teresa Gibbs Procedure Date: 10/28/2017 8:24 AM Date of : 1955 Age: 62 Room: [facility] Gender: Female Note Status: Finalized Procedure: Colonoscopy Indications: Chronic diarrhea Providers: Vikas Pickett MD Referring MD: JULIO [facility]OR [facility] JULIO Cameron Requesting Provider: Medicines: Monitored Anesthesia Care Complications: No immediate complications. Procedure: Pre-Anesthesia Assessment: - Prior to the procedure, a History and Physical was performed, and patient medications and allergies were reviewed. The patient is competent. The risks and benefits of the procedure and the sedation options and risks were discussed with the patient. All questions were answered and informed consent was obtained. Patient identification and proposed procedure were verified by the physician, the nurse and the anesthesiologist in the procedure room. Mental Status Examination: alert and oriented. Airway Examination: normal oropharyngeal airway and neck mobility. Respiratory Examination: clear to auscultation. CV Examination: normal. Prophylactic Antibiotics: The patient does not require prophylactic antibiotics. Prior Anticoagulants: The patient has taken no previous anticoagulant or antiplatelet agents. ASA Grade Assessment: III - A patient with severe systemic disease. After reviewing the risks and benefits, the patient was deemed in satisfactory condition to undergo the procedure. The anesthesia plan was to use monitored anesthesia care (MAC). Immediately prior to administration of medications, the patient was re-assessed for adequacy to receive sedatives. The heart rate, respiratory rate, oxygen saturations, blood pressure, adequacy of pulmonary ventilation, and response to care were monitored throughout the procedure. The physical status of the patient was re-assessed after the procedure. The Colonoscope was introduced through the anus and advanced to the terminal ileum, with identification of the appendiceal orifice and IC valve. The colonoscopy was performed without difficulty. The patient tolerated the procedure well. Findings: The perianal and digital rectal examinations were normal. The terminal ileum appeared normal. A 3 mm polyp was found in the descending colon. The polyp was sessile. The polyp was removed with a cold biopsy forceps. Resection and retrieval were complete. Verification of patient identification for the specimen was done by the physician and nurse using the patient's name, date and medical record number. Estimated blood loss was minimal. A 4 mm polyp was found in the recto-sigmoid colon. The polyp was sessile. The polyp was removed with a cold biopsy forceps. Resection and retrieval were complete. Normal mucosa was found in the entire colon. Biopsies for histology were taken with a cold forceps from the right colon, left colon and rectosigmoid colon for evaluation of microscopic colitis. Verification of patient identification for the specimen was done by the physician and nurse using the patient's name, date and medical record number. Estimated blood loss was minimal. Non-bleeding external and internal hemorrhoids were found during retroflexion. The hemorrhoids were medium-sized. Impression: - The examined portion of the ileum was normal. - One 3 mm polyp in the descending colon, removed with a cold biopsy forceps. Resected and retrieved. - One 4 mm polyp at the recto-sigmoid colon, removed with a cold biopsy forceps. Resected and retrieved. - Normal mucosa in the entire examined colon. Biopsied. - Non-bleeding external and internal hemorrhoids. Recommendation: - Patient has a contact number available for emergencies. The signs and symptoms of potential delayed complications were discussed with the patient. Return to normal activities tomorrow. Written discharge instructions were provided to the patient. - Resume previous diet. - Continue present medications. - Await pathology results. - Repeat colonoscopy in 5 years for surveillance based on pathology results. - Return to GI clinic 1 - 2 weeks. Please call GI clinic @ [phone] for apppointment date and time. - Return to primary care physician. Vikas Pickett MD Vikas Pickett MD 10/28/2017 9:09:40 AM This report has been signed electronically. Number of Addenda: 0 Note Initiated On: 10/28/2017 8:24 AM Estimated Blood Loss: Estimated blood loss was minimal.
--- NOTE | 2017-10-28 09:16 | ROOR ---
Patient Name: Teresa Gibbs Procedure Date: 10/28/2017 8:23 AM Date of : 1955 Age: 62 Room: [facility] Gender: Female Note Status: Finalized Procedure: Upper GI endoscopy Indications: Upper abdominal symptoms that persist despite an appropriate trial of therapy, Suspected esophageal reflux Providers: Vikas Pickett MD Referring MD: JULIO JEWELL [facility] JULIO Cameron Requesting Provider: Medicines: Monitored Anesthesia Care Complications: No immediate complications. Procedure: Pre-Anesthesia Assessment: - Prior to the procedure, a History and Physical was performed, and patient medications and allergies were reviewed. The patient is competent. The risks and benefits of the procedure and the sedation options and risks were discussed with the patient. All questions were answered and informed consent was obtained. Patient identification and proposed procedure were verified by the physician, the nurse and the anesthesiologist in the procedure room. Mental Status Examination: alert and oriented. Airway Examination: normal oropharyngeal airway and neck mobility. Respiratory Examination: clear to auscultation. CV Examination: normal. Prophylactic Antibiotics: The patient does not require prophylactic antibiotics. Prior Anticoagulants: The patient has taken no previous anticoagulant or antiplatelet agents. ASA Grade Assessment: III - A patient with severe systemic disease. After reviewing the risks and benefits, the patient was deemed in satisfactory condition to undergo the procedure. The anesthesia plan was to use monitored anesthesia care (MAC). Immediately prior to administration of medications, the patient was re-assessed for adequacy to receive sedatives. The heart rate, respiratory rate, oxygen saturations, blood pressure, adequacy of pulmonary ventilation, and response to care were monitored throughout the procedure. The physical status of the patient was re-assessed after the procedure. The Endoscope was introduced through the mouth, and advanced to the second part of duodenum. The upper GI endoscopy was accomplished without difficulty. The patient tolerated the procedure well. Findings: LA Grade A (one or more mucosal breaks less than 5 mm, not extending between tops of 2 mucosal folds) esophagitis with no bleeding was found 38 to 39 cm from the incisors. Biopsies were taken with a cold forceps for histology. Verification of patient identification for the specimen was done by the physician and nurse using the patient's name, date and medical record number. Estimated blood loss was minimal. Striped moderately erythematous mucosa without bleeding was found in the gastric antrum. Biopsies were taken with a cold forceps for Helicobacter pylori testing. The duodenal bulb and second portion of the duodenum were normal. Biopsies for histology were taken with a cold forceps for evaluation of celiac disease. Impression: - LA Grade A reflux esophagitis. Biopsied. - Erythematous mucosa in the antrum. Biopsied. - Normal duodenal bulb and second portion of the duodenum. Biopsied. Recommendation: - Patient has a contact number available for emergencies. The signs and symptoms of potential delayed complications were discussed with the patient. Return to normal activities tomorrow. Written discharge instructions were provided to the patient. - Resume previous diet. - Continue present medications. - Await pathology results. - Use Protonix (pantoprazole) 40 mg PO twice daily - to be taken in morning (1/2 hour before breakfast) and at bedtime ( atleast 3 hours after last meal) for 3 months. - Return to GI clinic 1 - 2 weeks. Please call GI clinic @ [phone] for apppointment date and time. - Return to primary care physician. Vikas Pickett MD Vikas Pickett MD 10/28/2017 9:15:56 AM This report has been signed electronically. Number of Addenda: 0 Note Initiated On: 10/28/2017 8:23 AM Estimated Blood Loss: Estimated blood loss: none.
[2017-10-28 09:35] VITALS: BP 124/78
== END | disposition home or self-care (01) ==
LOC: M OPP 07:43
PROVIDERS: ATTEND Internal Medicine Gastroenterology
DX: R19.7 Diarrhea, unspecified (principal); R19.4 Change in bowel habit; D12.4 Benign neoplasm of descending colon; D12.7 Benign neoplasm of rectosigmoid junction; K64.8 Other hemorrhoids; K64.4 Residual hemorrhoidal skin tags; K21.0 Gastro-esophageal reflux disease with esophagitis; K31.89 Other diseases of stomach and duodenum; R19.8 Other specified symptoms and signs involving the digestive system and abdomen; I10 Essential (primary) hypertension; E78.5 Hyperlipidemia, unspecified; E10.9 Type 1 diabetes mellitus without complications; R12 Heartburn; M54.9 Dorsalgia, unspecified; M72.2 Plantar fascial fibromatosis; Z85.42 Personal history of malignant neoplasm of other parts of uterus; H35.30 Unspecified macular degeneration; R32 Unspecified urinary incontinence; Z96.641 Presence of right artificial hip joint; Z91.048 Other nonmedicinal substance allergy status; Z88.8 Allergy status to other drugs, medicaments and biological substances; Z79.899 Other long term (current) drug therapy; Z79.82 Long term (current) use of aspirin; Z80.1 Family history of malignant neoplasm of trachea, bronchus and lung

== ENCOUNTER → 2017-11-05 | Outpatient (REF) | payer OTHER ==
[2017-11-05 12:10] LABS: ANION GAP 7 MEQ/L (8-16); BLOOD UREA NITROGEN 29 MG/DL (7-18); CALCIUM LEVEL 9.3 MG/DL (8.8-10.2); CARBON DIOXIDE LEVEL 30 MEQ/L (21-32); CHLORIDE LEVEL 104 MEQ/L (98-107); CREATININE FOR GFR 0.85 MG/DL (0.55-1.02); GLOMERULAR FILTRATION RATE > 60.0 (>45); GLUCOSE, FASTING 113 MG/DL (80-110); POTASSIUM SERUM 4.1 MEQ/L (3.5-5.1); SODIUM LEVEL 141 MEQ/L (136-145)
== END ==
LOC: M SFHCPLAZ 09:28
DX: M79.89 Other specified soft tissue disorders (principal)

== ENCOUNTER → 2017-12-08 | Outpatient (CLI) | payer OTHER ==
[2017-12-08 12:21] LABS: ALBUMIN 3.5 GM/DL (3.2-5.2); ANION GAP 5 MEQ/L (8-16); BLOOD UREA NITROGEN 28 MG/DL (7-18); CALCIUM LEVEL 8.8 MG/DL (8.8-10.2); CARBON DIOXIDE LEVEL 32 MEQ/L (21-32); CHLORIDE LEVEL 104 MEQ/L (98-107); CREATININE FOR GFR 0.92 MG/DL (0.55-1.30); GLOMERULAR FILTRATION RATE > 60.0 (>45); GLUCOSE, FASTING 101 MG/DL (70-100); MAGNESIUM LEVEL 2.3 MG/DL (1.8-2.4); SODIUM LEVEL 141 MEQ/L (136-145)
== END ==
LOC: M LAB 11:14
DX: R60.0 Localized edema (principal); I10 Essential (primary) hypertension
CPT/HCPCS: 83735

== ENCOUNTER → 2017-12-08 | Outpatient (CLI) | payer OTHER ==
[2017-12-08 11:40] LABS: BASO # 0.1 10^3/uL (0.0-0.2); BASO % 0.9 % (0.0-1.0); EOS # 0.2 10^3/uL (0.0-0.50); EOS % 3.1 % (0.0-3.0); HEMATOCRIT 39.3 % (36.0-47.0); HEMOGLOBIN 12.3 g/dl (12.0-16.0); IMMATURE GRANULOCYTE % 0.6 % (0-0); LYMPH # 1.4 10^3/uL (1.5-4.5); LYMPH % 21.4 % (24.0-44.0); MEAN CORPUSCULAR HEMOGLOBIN 26.2 pg (27.0-33.0); MEAN CORPUSCULAR HGB CONC 31.3 g/dl (32.0-36.5); MEAN CORPUSCULAR VOLUME 83.8 fl (80.0-96.0); MONO # 0.5 10^3/uL (0.0-0.8); NEUTROPHILS # 4.3 10^3/uL (1.8-7.7); PLATELET COUNT, AUTOMATED 331 10^3/uL (150-450); RED BLOOD COUNT 4.69 10^6/uL (4.00-5.40); RED CELL DISTRIBUTION WIDTH 15.2 % (11.5-14.5); WHITE BLOOD COUNT 6.5 10^3/uL (4.0-10.0)
[2017-12-08 11:57] LABS: INR 0.96; PROTHROMBIN TIME 12.9 SECONDS (12.4-14.5)
[2017-12-08 11:58] LABS: PARTIAL THROMBOPLASTIN TIME 31.5 SECONDS (26.8-37.9)
[2017-12-08 12:25] LABS: ALBUMIN 3.4 GM/DL (3.2-5.2); ALBUMIN/GLOBULIN RATIO 0.92 (1.00-1.93); ALKALINE PHOSPHATASE 152 U/L (45-117); ALT/SGPT 25 U/L (12-78); ANION GAP 6 MEQ/L (8-16); AST/SGOT 14 U/L (7-37); BILIRUBIN,TOTAL 0.3 MG/DL (0.2-1.0); BLOOD UREA NITROGEN 29 MG/DL (7-18); CALCIUM LEVEL 8.6 MG/DL (8.8-10.2); CARBON DIOXIDE LEVEL 31 MEQ/L (21-32); CHLORIDE LEVEL 104 MEQ/L (98-107); CREATININE FOR GFR 0.94 MG/DL (0.55-1.30); FERRITIN 92 NG/ML (8-252); GLOMERULAR FILTRATION RATE > 60.0 (>45); GLUCOSE, FASTING 101 MG/DL (70-100); IRON (FE) 39 UG/DL (50-170); POTASSIUM SERUM 4.1 MEQ/L (3.5-5.1); SODIUM LEVEL 141 MEQ/L (136-145); TOTAL IRON BINDING CAPACITY 356 UG/DL (250-450); TOTAL PROTEIN 7.1 GM/DL (6.4-8.2)
== END ==
LOC: M LAB 11:08
DX: R19.7 Diarrhea, unspecified (principal)
CPT/HCPCS: 83550

== ENCOUNTER → 2017-12-10 | Outpatient (CLI) | payer OTHER | LOC: M LAB 12:14 | DX: M77.32 Calcaneal spur, left foot (principal) | CPT/HCPCS: 73650 ==

== ENCOUNTER → 2017-12-31 | Outpatient (CLI) | payer OTHER ==
[2017-12-31 13:31] LABS: CHOLESTEROL LEVEL 166 MG/DL (<200); CHOLESTEROL RISK RATIO 3.387 (<5); HDL CHOLESTEROL 49 MG/DL (>40); LDL CHOLESTEROL 85.8 MG/DL (<100); NON-HDL-C 117 MG/DL; TRIGLYCERIDES LEVEL 156 MG/DL (<150)
[2017-12-31 14:55] LABS: ESTIMATED AVERAGE GLUCOSE 120 MG/DL (60-110); HEMOGLOBIN A1c 5.8 %
== END ==
LOC: M LAB 12:17
DX: E11.9 Type 2 diabetes mellitus without complications (principal); Z13.220 Encounter for screening for lipoid disorders
CPT/HCPCS: 83036

== ENCOUNTER → 2018-02-24 | Outpatient (REF) | payer OTHER ==
[2018-02-24 13:46] LABS: APPEARANCE, URINE HAZY (CLEAR); BACTERIA, URINE AUTO NEGATIVE (NEGATIVE); BILIRUBIN, URINE AUTO NEGATIVE (NEGATIVE); BLOOD, URINE BLOOD NEGATIVE (NEGATIVE); COLOR, URINE YELLOW (YELLOW); GLUCOSE, URINE (UA) AUTO NEGATIVE (NEGATIVE); KETONE, URINE AUTO NEGATIVE (NEGATIVE); LEUKOCYTE ESTERASE, URINE AUTO 2+ (NEGATIVE); MUCUS, URINE SMALL (NEGATIVE); NITRITE, URINE AUTO NEGATIVE (NEGATIVE); PROTEIN, URINE AUTO NEGATIVE (NEGATIVE); RBC, URINE AUTO 2 /HPF (0-3); SQUAMOUS EPITHELIAL CELL UR AU 2 /HPF (0-6); UROBILINOGEN, URINE AUTO 0.2 mg/dL (0.0-2.0); WBC, URINE AUTO 8 /HPF (0-3)
== END ==
LOC: M SMT 13:08
DX: R32 Unspecified urinary incontinence (principal)

== ENCOUNTER → 2018-03-12 | Outpatient (CLI) | payer OTHER ==
[2018-03-12 14:18] LABS: BASO # 0.1 10^3/uL (0.0-0.2); BASO % 1.4 % (0.0-1.0); EOS # 0.3 10^3/uL (0.0-0.50); HEMATOCRIT 41.6 % (36.0-47.0); HEMOGLOBIN 13.4 g/dl (12.0-15.5); IMMATURE GRANULOCYTE % 0.8 % (0-3.0); LYMPH # 1.4 10^3/uL (1.5-4.5); LYMPH % 22.4 % (24.0-44.0); MEAN CORPUSCULAR HEMOGLOBIN 26.6 pg (27.0-33.0); MEAN CORPUSCULAR HGB CONC 32.2 g/dl (32.0-36.5); MEAN CORPUSCULAR VOLUME 82.7 fl (80.0-96.0); MONO # 0.5 10^3/uL (0.0-0.8); MONO % 8.6 % (0.0-5.0); NEUTROPHILS % 62.8 % (36.0-66.0); PLATELET COUNT, AUTOMATED 322 10^3/uL (150-450); RED BLOOD COUNT 5.03 10^6/uL (4.00-5.40); WHITE BLOOD COUNT 6.3 10^3/uL (4.0-10.0)
[2018-03-12 15:08] LABS: FERRITIN 105 NG/ML (8-252); IRON (FE) 81 UG/DL (50-170); PERCENT SATURATION 21.3 % (13.2-45.0); TOTAL IRON BINDING CAPACITY 381 UG/DL (250-450)
== END ==
LOC: M LAB 13:48
DX: R10.30 Lower abdominal pain, unspecified (principal); D64.9 Anemia, unspecified
CPT/HCPCS: 83550

== ENCOUNTER 2018-03-17 10:46 | Outpatient (RCR) | payer OTHER | END 2018-04-09 | LOC: M PT 10:46 | DX: Z51.89 Encounter for other specified aftercare (principal); M76.60 Achilles tendinitis, unspecified leg ==

== ENCOUNTER → 2018-03-30 | Outpatient (CLI) | payer OTHER ==
[2018-03-30 13:20] LABS: ESTIMATED AVERAGE GLUCOSE 166 MG/DL (60-110); HEMOGLOBIN A1c 7.4 %
== END ==
LOC: M LAB 11:48
DX: E11.9 Type 2 diabetes mellitus without complications (principal)
CPT/HCPCS: 83036

== ENCOUNTER → 2018-04-03 | Outpatient (CLI) | payer OTHER | LOC: M RAD 15:02 | DX: M54.16 Radiculopathy, lumbar region (principal) | CPT/HCPCS: 72148 ==

== ENCOUNTER 2018-04-14 12:11 | Outpatient (RCR) | payer OTHER | END 2018-05-09 | LOC: M PT 12:11 | DX: Z51.89 Encounter for other specified aftercare (principal); M25.572 Pain in left ankle and joints of left foot ==

== ENCOUNTER 2018-10-16 04:25 | Emergency (ER) | payer OTHER ==
[2018-10-16] MEDS: NS 500 ML IV (04:45)
[2018-10-16 05:11] LABS: BASO % 0.4 % (0.0-1.0); EOS % 0.4 % (0.0-3.0); HEMATOCRIT 40.9 % (36.0-47.0); HEMOGLOBIN 13.2 g/dl (12.0-15.5); IMMATURE GRANULOCYTE % 0.7 % (0-3.0); LYMPH # 1.2 10^3/uL (1.5-4.5); LYMPH % 21.7 % (24.0-44.0); MEAN CORPUSCULAR HEMOGLOBIN 27.9 pg (27.0-33.0); MEAN CORPUSCULAR HGB CONC 32.3 g/dl (32.0-36.5); MEAN CORPUSCULAR VOLUME 86.5 fl (80.0-96.0); MONO # 0.3 10^3/uL (0.0-0.8); MONO % 5.8 % (0.0-5.0); NEUTROPHILS # 3.9 10^3/uL (1.8-7.7); PLATELET COUNT, AUTOMATED 301 10^3/uL (150-450); RED BLOOD COUNT 4.73 10^6/uL (4.00-5.40); RED CELL DISTRIBUTION WIDTH 15.5 % (11.5-14.5); WHITE BLOOD COUNT 5.5 10^3/uL (4.0-10.0)
[2018-10-16] MEDS: METOCLOPRAMIDE INJ 10MG/2ML VIAL (J2765) IV (05:30)
[2018-10-16 05:34] LABS: ALBUMIN 3.8 GM/DL (3.2-5.2); ALBUMIN/GLOBULIN RATIO 1.12 (1.00-1.93); ALKALINE PHOSPHATASE 130 U/L (45-117); ALT/SGPT 32 U/L (12-78); ANION GAP 10 MEQ/L (8-16); AST/SGOT 25 U/L (7-37); BILIRUBIN,DIRECT 0.1 MG/DL (0.0-0.2); BILIRUBIN,TOTAL 0.5 MG/DL (0.2-1.0); BLOOD UREA NITROGEN 16 MG/DL (7-18); CALCIUM LEVEL 8.8 MG/DL (8.8-10.2); CARBON DIOXIDE LEVEL 28 MEQ/L (21-32); CHLORIDE LEVEL 103 MEQ/L (98-107); GLOMERULAR FILTRATION RATE 59.8 (>45); GLUCOSE, FASTING 237 MG/DL (70-100); LIPASE 191 U/L (73-393); POTASSIUM SERUM 3.8 MEQ/L (3.5-5.1); SODIUM LEVEL 141 MEQ/L (136-145); TOTAL PROTEIN 7.2 GM/DL (6.4-8.2)
[2018-10-16] MEDS: HumuLIN R (REGULAR) INSULIN (NovoLIN R) **100U/ML** PER UNIT IV (06:00)
== END 2018-10-16 06:42 | disposition home or self-care (01) ==
LOC: M ED 04:25
DX: E11.65 Type 2 diabetes mellitus with hyperglycemia (principal); K52.9 Noninfective gastroenteritis and colitis, unspecified; I10 Essential (primary) hypertension; E78.5 Hyperlipidemia, unspecified; K58.9 Irritable bowel syndrome, unspecified
CPT/HCPCS: J2765

== ENCOUNTER → 2018-10-26 | Outpatient (CLI) | payer OTHER ==
[~2018-10-26] MED LIST changes: +AMIL25TA PO; +ATOR40TA75 PO; +DICY20TA11 PO; -LIDOCAINE 2% INJ 100 MG/5 ML SDV (FOR ANES.) As Ordered ONE; -NS 1,000 ML IV ONE; -PANT40TA2 PO; +PANT40TA3 PO; -PROPOFOL 500 MG/50 ML VIAL As Ordered ONE; +TORS10TA3 PO; +ZOFR4TAB14 PO
[2018-10-26 17:28] LABS: HEMOGLOBIN A1c 7.4 %
[2018-10-26 17:35] LABS: BLOOD UREA NITROGEN 9 MG/DL (7-18); CALCIUM LEVEL 8.7 MG/DL (8.8-10.2); CARBON DIOXIDE LEVEL 28 MEQ/L (21-32); CHLORIDE LEVEL 107 MEQ/L (98-107); CREATININE FOR GFR 0.74 MG/DL (0.55-1.30); GLOMERULAR FILTRATION RATE > 60.0 (>45); GLUCOSE, FASTING 90 MG/DL (70-100); POTASSIUM SERUM 4.7 MEQ/L (3.5-5.1); SODIUM LEVEL 141 MEQ/L (136-145)
[2018-10-26 18:40] LABS: APPEARANCE, URINE HAZY (CLEAR); BACTERIA, URINE AUTO NEGATIVE (NEGATIVE); BILIRUBIN, URINE AUTO NEGATIVE (NEGATIVE); BLOOD, URINE BLOOD NEGATIVE (NEGATIVE); COLOR, URINE YELLOW (YELLOW); GLUCOSE, URINE (UA) AUTO NEGATIVE (NEGATIVE); KETONE, URINE AUTO NEGATIVE (NEGATIVE); LEUKOCYTE ESTERASE, URINE AUTO TRACE (NEGATIVE); MUCUS, URINE SMALL (NEGATIVE); NITRITE, URINE AUTO NEGATIVE (NEGATIVE); PROTEIN, URINE AUTO NEGATIVE (NEGATIVE); RBC, URINE AUTO 2 /HPF (0-3); SPECIFIC GRAVITY URINE AUTO 1.014 (1.002-1.035); SQUAMOUS EPITHELIAL CELL UR AU 1 /HPF (0-6); UROBILINOGEN, URINE AUTO 0.2 mg/dL (0.0-2.0); WBC, URINE AUTO 10 /HPF (0-3)
[2018-10-26 19:34] LABS: MALB URINE SIEMENS 23.2 MG/L; MAU/CREAT RATIO 20.7 MCG/MG (0.0-30.0)
== END ==
LOC: M LAB 16:35
PROVIDERS: ATTEND Student in an Organized Health Care Education/Training Program
DX: E11.40 Type 2 diabetes mellitus with diabetic neuropathy, unspecified (principal); N30.01 Acute cystitis with hematuria; I10 Essential (primary) hypertension

== ENCOUNTER → 2018-11-30 | Outpatient (REF) | payer OTHER ==
[2018-11-30 16:00] LABS: APPEARANCE, URINE HAZY (CLEAR); BACTERIA, URINE AUTO 2+ (NEGATIVE); BILIRUBIN, URINE AUTO NEGATIVE (NEGATIVE); BLOOD, URINE BLOOD NEGATIVE (NEGATIVE); COLOR, URINE YELLOW (YELLOW); GLUCOSE, URINE (UA) AUTO NEGATIVE (NEGATIVE); KETONE, URINE AUTO NEGATIVE (NEGATIVE); LEUKOCYTE ESTERASE, URINE AUTO 2+ (NEGATIVE); MUCUS, URINE SMALL (NEGATIVE); NITRITE, URINE AUTO NEGATIVE (NEGATIVE); PROTEIN, URINE AUTO NEGATIVE (NEGATIVE); RBC, URINE AUTO 7 /HPF (0-3); SPECIFIC GRAVITY URINE AUTO 1.015 (1.002-1.035); SQUAMOUS EPITHELIAL CELL UR AU 5 /HPF (0-6); UROBILINOGEN, URINE AUTO 0.2 mg/dL (0.0-2.0); WBC, URINE AUTO 43 /HPF (0-3)
== END ==
LOC: M SFHCPLAZ 15:10
PROVIDERS: ATTEND Student in an Organized Health Care Education/Training Program
DX: R35.0 Frequency of micturition (principal)

== ENCOUNTER → 2019-01-07 | Outpatient (CLI) | payer OTHER ==
[2019-01-07 12:45] LABS: HEMOGLOBIN 13.8 g/dl (12.0-15.5); MEAN CORPUSCULAR HEMOGLOBIN 27.8 pg (27.0-33.0); MEAN CORPUSCULAR HGB CONC 31.4 g/dl (32.0-36.5); MEAN CORPUSCULAR VOLUME 88.7 fl (80.0-96.0); PLATELET COUNT, AUTOMATED 324 10^3/uL (150-450); RED BLOOD COUNT 4.96 10^6/uL (4.00-5.40); WHITE BLOOD COUNT 7.1 10^3/uL (4.0-10.0)
[2019-01-07 13:37] LABS: ALBUMIN 3.9 GM/DL (3.2-5.2); BILIRUBIN,TOTAL 0.4 MG/DL (0.2-1.0); CALCIUM LEVEL 9.3 MG/DL (8.8-10.2); CHOLESTEROL RISK RATIO 3.658 (<5); CREATININE FOR GFR 1.09 MG/DL (0.55-1.30); GLOMERULAR FILTRATION RATE 54.1 (>45); POTASSIUM SERUM 4.5 MEQ/L (3.5-5.1); THYROID STIMULATING HORMONE 3.72 uIU/ML (0.358-3.740); TOTAL PROTEIN 7.4 GM/DL (6.4-8.2)
== END ==
LOC: M LAB 11:56
PROVIDERS: ATTEND Physician Assistant
DX: I10 Essential (primary) hypertension (principal)

== ENCOUNTER 2019-03-08 08:01 | Outpatient (RCR) | payer OTHER | END 2019-03-09 | LOC: M PT 08:01 | PROVIDERS: ATTEND Student in an Organized Health Care Education/Training Program | DX: R26.9 Unspecified abnormalities of gait and mobility (principal) ==

== ENCOUNTER → 2020-06-20 | Outpatient (CLI) | payer OTHER ==
[~2020-06-20] MED LIST changes: +ACET325T42 PO; +ASPI-546 PO; -ASPI1TAB15 PO; -MAPA325T3 PO; -OXYB15TA PO; +OXYB15TA14 PO; +PANT40TA29 PO; -PANT40TA3 PO
[2020-08-13 11:00] LABS: APPEARANCE, URINE CLOUDY (CLEAR); BACTERIA, URINE AUTO 1+ (NEGATIVE); BILIRUBIN, URINE AUTO NEGATIVE (NEGATIVE); BLOOD, URINE BLOOD NEGATIVE (NEGATIVE); COLOR, URINE YELLOW (YELLOW); GLUCOSE, URINE (UA) AUTO NEGATIVE (NEGATIVE); KETONE, URINE AUTO NEGATIVE (NEGATIVE); LEUKOCYTE ESTERASE, URINE AUTO 3+ (NEGATIVE); MUCUS, URINE SMALL (NEGATIVE); NITRITE, URINE AUTO NEGATIVE (NEGATIVE); PROTEIN, URINE AUTO 1+ mg/dL (NEGATIVE); RBC, URINE AUTO 5 /HPF (0-3); SPECIFIC GRAVITY URINE AUTO 1.024 (1.002-1.035); SQUAMOUS EPITHELIAL CELL UR AU 0 /HPF (0-6); UROBILINOGEN, URINE AUTO 0.2 mg/dL (0.0-2.0); WBC, URINE AUTO TNTC /HPF (0-3)
== END ==
LOC: M LAB 15:17
PROVIDERS: ATTEND Urology
DX: N39.41 Urge incontinence (principal)

== ENCOUNTER → 2020-08-03 | Outpatient (REF) | payer OTHER ==
[2020-08-03 17:47] LABS: APPEARANCE, URINE TURBID (CLEAR); BACTERIA, URINE AUTO 3+ (NEGATIVE); BILIRUBIN, URINE AUTO NEGATIVE (NEGATIVE); BLOOD, URINE BLOOD NEGATIVE (NEGATIVE); COLOR, URINE YELLOW (YELLOW); GLUCOSE, URINE (UA) AUTO NEGATIVE (NEGATIVE); KETONE, URINE AUTO NEGATIVE (NEGATIVE); LEUKOCYTE ESTERASE, URINE AUTO 3+ (NEGATIVE); MUCUS, URINE SMALL (NEGATIVE); NITRITE, URINE AUTO NEGATIVE (NEGATIVE); PROTEIN, URINE AUTO 1+ mg/dL (NEGATIVE); RBC, URINE AUTO 42 /HPF (0-3); SPECIFIC GRAVITY URINE AUTO 1.017 (1.002-1.035); SQUAMOUS EPITHELIAL CELL UR AU 38 /HPF (0-6); UROBILINOGEN, URINE AUTO 0.2 mg/dL (0.0-2.0); WBC, URINE AUTO TNTC /HPF (0-3)
== END ==
LOC: M LAB REF 15:25
PROVIDERS: ATTEND Urology
DX: R39.15 Urgency of urination (principal)

== ENCOUNTER → 2020-08-22 | Outpatient (CLI) | payer OTHER ==
--- NOTE | 2020-08-23 11:10 | ECWPNPC ---
PATIENT NAME: DARIUS RUDOLPH : 1955 GENDER: FEMALE VISIT DATE: 08/22/2020 DISCHARGE DATE: 08/22/20 1355 VISIT LOCKED DATE TIME: PHYSICIAN: MATT PENA PHYSICIAN PAGER NO: ACTIVE RESOURCE: MATT PENA REASON FOR APPOINTMENT 1. CHRONIC BACK PAIN HISTORY OF PRESENT ILLNESS DEPRESSION SCREENING: PHQ-2 (2015 EDITION) LITTLE INTEREST OR PLEASURE IN DOING THINGS?NOT AT ALL FEELING DOWN, DEPRESSED, OR HOPELESS?NOT AT ALL TOTAL SCORE0 65-YEAR-OLD FEMALE IN FOR INITIAL PAIN CONSULT. SHE RATES HER PAIN CURRENTLY AT A 6 OUT OF 10 AND DESCRIBES IT ACHING. PATIENT HAS LOW BACK PAIN THAT RADIATES TO HER BILATERAL HIPS WHEN ASKED SHE ADMITS THIS PAIN HAS BEEN PRESENT FOR THE PAST 4-5 YEARS. SHE DENIES HISTORY OF TRAUMA BUT DOES ADMIT TO HISTORY OF HORSEBACK RIDING WHERE SHE WAS THROWN FROM THE HORSE. PATIENT HAS TRIED SPINAL INJECTIONS IN THE PAST WITH LITTLE TO NO RESULTS. GENERAL: - -. FALL RISK SCREENING: SCREENING :ONE FALL WITHOUT INJURY IN THE PAST YEAR PAIN SCREENING: PATIENT HAS A COMPLAINT OF ACUTE OR CHRONIC PAIN :YES LOCATION OF PAIN:LOW BACK, LEFT HIP, RIGHT HIP LOWER BACK PAIN THAT RADIATES INTO BOTH HIPS. INTENSITY OF PAIN (SCALE OF 1 TO 10):6 WHAT DOES YOUR PAIN FEEL LIKE:ACHING DURATION:CONTINOUS, CONSTANT PAIN IS INCREASED BY:ACTIVITIES, PROLONGED STANDING PAIN IS DECREASED BY:USE OF PAIN MEDICATIONS LIDOCANE CREAM HELPS TO RELIEVE THAT PAIN. NURSING NOTE: - -. PAIN CENTER INTAKE QUESTIONS: DO YOU HAVE A HISTORY OF MRSA? :NO DO YOU TAKE A BLOOD THINNERS? :NO DO YOU HAVE ANY BLEEDING DISORDERS? :NO ANY NEW NUMBNESS OR WEAKNESS IN YOUR LEGS OR ARMS? :NO ANY PACEMAKER,DEFIBRILLATOR, OR DORSAL COLUMN STIMULATOR? :NO DO YOU HAVE ANY RASHES OR OPEN SORES? :NO ARE YOU ALLERGIC TO IV DYE? :NO ARE YOU DIABETIC? :YES INSULIN PUMP, VICTOZA, BASIGLAR ANY NEW PROBLEMS WITH YOUR MEDICATIONS? :NO HAVE YOU RECEIVED A VACCINE IN THE PAST 30 DAYS? :YES IF SO WHAT VACCINE AND WHEN? FLU VACCINE 1-2 WEEKS AGO DO YOU PLAN TO RECEIVE A VACCINE IN THE NEXT 21 DAYS? :NO DO YOU NEED ANY PRESCRIPTION? :YES LIDOCAINE PATCHES AND/OR LIDOCAINE CREAM DO YOU TAKE ANY IMMUNOSUPPRESSIVE MEDICATIONS? :NO CURRENT MEDICATIONS TAKING TROSPIUM CHLORIDE 20 MG TABLET TABLET AT BEDTIME ON AN EMPTY STOMACH ORALLY TWICE DAILY, NOTES: UP TO 60 MG TAKING CALCIUM 600 MG TABLET 1 TABLET WITH MEALS ORALLY TWICE A DAY TAKING MULTIVITAMINS - TABLET 1 TABLET ORALLY ONCE A DAY TAKING BLOOD GLUCOSE METER - KIT 1 METER DX:E11.9 6-8 TIMES DAILY PER SPECIALIST, NOTES: PLEASE DISPENSE ONE TOUCH VERIO FLEX MONITOR TAKING AMILORIDE HCL 5 MG TABLET 1 TABLET ORALLY ONCE A DAY TAKING BLOOD GLUCOSE TEST - STRIP 1 STRIP IN VITRO 6-8 TIMES DAILY DX:E11.9 TAKING VICTOZA 18 MG/3ML SOLUTION PEN-INJECTOR 0.6 MG FOR 1 WEEK, THEN 1.2MG FOR 1 WEEK, THEN 1.8MG DAILY SUBCUTANEOUS DAILY TAKING ATORVASTATIN CALCIUM 80 MG TABLET 1 TABLET ORALLY ONCE A DAY TAKING LISINOPRIL 10 MG TABLET 1 TABLET ORALLY ONCE A DAY TAKING APIDRA 100 UNIT/ML SOLUTION UNITS PER SLIDING SCALE MDD:100 INJECTION FOR AN INSULIN PUMP TAKING BUMETANIDE 1 MG TABLET DIRECTED ORALLY TAKING SUCRALFATE 1 GM TABLET 1 TABLET ON AN EMPTY STOMACH ORALLY DAILY TAKING FAMOTIDINE 20 MG TABLET 1 TABLET ORALLY TWICE DAILY NEEDED TAKING CVS FLUTICASONE PROPIONATE 50 MCG/ACT SUSPENSION 1 SPRAY IN EACH NOSTRIL NASALLY ONCE A DAY TAKING BASAGLAR KWIKPEN 100 UNIT/ML SOLUTION PEN-INJECTOR DIRECTED SUBCUTANEOUS NOT-TAKING LIDODERM 5 % PATCH 1 PATCH REMOVE AFTER 12 HOURS EXTERNALLY DAILY( APPLY TO MOST PAINFUL AREA FOR 12 HOURS. 1 PATCH FOR EVERY 24 HOURS) ONCE A DAY NOT-TAKING LIDOCAINE HCL 4 % CREAM 1 APPLICATION EXTERNALLY TWICE A DAY NOT-TAKING MAY HAVE - - DEXCOM CGMS (CONTINUOUS GLUCOSE MONITOR SYSTEM) SENSORS CONTINUOUS DX: E11.9, NOTES: JOSE ROBB NOT-TAKING VOLTAREN 1 % GEL DIRECTED TRANSDERMAL DAILY NOT-TAKING CYMBALTA 60 MG CAPSULE DELAYED RELEASE PARTICLES TAKE ONE CAPSULE BY MOUTH EVERY DAY NOT-TAKING SALINE NASAL SPRAY 0.65 % SOLUTION 2 SPRAYS IN EACH NOSTRIL NEEDED NASALLY DAILY PRN NOT-TAKING LISINOPRIL 10 MG TABLET TAKE ONE TABLET BY MOUTH EVERY DAY NOT-TAKING DICLOFENAC SODIUM 1 % CREAM DIRECTED TRANSDERMAL BID NOT-TAKING IBUPROFEN 200 MG TABLET 4 TABLETS ORALLY PRN, NOTES: TAKING 6-8 TABLETS A DAY EVEN THOUGH SHE SHOULDN'T MEDICATION LIST REVIEWED AND RECONCILED WITH THE PATIENT PAST MEDICAL HISTORY LOWER EXTREMITY SWELLING INSULIN DEPENDENT DIABETES MELLITUS HYPERTENSION DYSLIPIDEMIA ENDOMETRIAL CANCER 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, CERVIX REMOVE, WELL OVARIES 2012) ALLERGIES ADHESIVE TAPE: REDNESS, ITCHING, SORES - ALLERGY HUMALOG: ITCHY LUMPS AT INJECTION SITE - ALLERGY NOVOLOG: ITCHY LUMPS AT INJECTION SITE - ALLERGY SURGICAL HISTORY TOTAL HIP REPLACEMENT R HYSTERECTOMY, TOTAL WITH BSO 2012 CARPAL TUNNEL RELEASE BILATERAL CHOLECYSTECTOMY 06/2017 COLONOSCOPY & ENDOSCOPY 10/28/17 SPINAL PAIN INJECTION 05/2018 FAMILY HISTORY FATHER: , DAD AT AGE OF 70'S FROM LUNG CA ENLARGED PROSTATE MOTHER: 62 YRS, COPD SIBLINGS: ALIVE, 1 SISTER HAS ISSUES WITH HYPOTENSION 2 SISTER(S) - HEALTHY. SOCIAL HISTORY GENERAL: TOBACCO USE ARE YOU A:NONSMOKER NEVER SMOKER LATEX QUESTIONNAIRE LATEX ALLERGY : HAVE YOU EVER DEVELOPED ANY TYPE OF REACTION AFTER HANDLING LATEX PRODUCTS SUCH RUBBER GLOVES, CONDOMS, DIAPHRAGMS, BALLOONS, SOCKS, OR UNDERWEAR?NO LATEX ALLERGY : HAVE YOU EVER DEVELOPED ANY TYPE OF REACTION DURING OR AFTER DENTAL APPOINTMENT, VAGINAL/RECTAL EXAMINATION, SURGICAL PROCEDURE, OR ANY OTHER EXPOSURE?NO LATEX RISK : HAVE YOU EVER HAD ANY DIFFICULTY BREATHING OR HIVES AFTER EATING OR HANDLING ANY FRUITS, OR VEGETABLES; SUCH KIWI, BANANAS, STONE FRUITS, OR CHESTNUTSNO LATEX RISK : DO YOU HAVE A PREVIOUS PERSONAL HISTORY OF MORE THAN NINE SURGERIES, SPINA BIFIDA, OR REPEATED CATHERIZATIONS? NO LATEX RISK : ARE YOU FREQUENTLY EXPOSED TO LATEX PRODUCTS IN YOUR OCCUPATION?NO DATE ASKED : 08/18/2020 BMI CARE GOAL FOLLOW-UP ABOVE NORMAL BMI FOLLOW-UPDIETARY NEEDS EDUCATION ALCOHOL SCREENING DID YOU HAVE A DRINK CONTAINING ALCOHOL IN THE PAST YEAR?NO POINTS0 INTERPRETATIONNEGATIVE RECREATIONAL DRUG USE DRUG USE?NO CAFFEINE CAFFEINE USE?YES 1 DIET [place] DEW PER WEEK SEXUAL HX HAD SEX IN THE LAST 12 MONTHS (VAGINAL, ORAL, OR ANAL)?NO LMP:HYSTERECTOMY HAVE YOU EVER HAD AN STD?NO HIV / HEP-C SCREENING HIV TEST OFFERED TO PATIENT:YES DATE OFFERED:06/24/2017 TEST ACCEPTED:NO HEP-C TEST OFFERED TO PATIENT:YES DATE OFFERED:06/24/2017 REASON:PATIENT DECLINED TEST ACCEPTED:NO REASON:PATIENT DECLINED VOODOO [id number] BAPTISM NO CONGREGATION BELIEFS THAT WOULD IMPACT HEALTH CARE. LANGUAGE LANGUAGES SPOKEN:INDONESIAN EDUCATION LEVEL OF EDUCATION:FINISHED COLLEGE LEARNING BARRIERS / SPECIAL NEEDS CHANGE FROM LAST VISIT?NO BARRIERS TO LEARNING?NO HEARING IMPAIRED?YES L EAR WORSE, VISION IMPAIRED?YES COGNITIVELY IMPAIRED?NO :HEARING AIDES RACHEL :CORRECTIVE LENSES READINESS TO LEARN?YES LEARNING PREFERENCES?NO LEARNING CAPABILITIES PRESENT?YES EMOTIONAL BARRIERS?NO SPECIAL DEVICES?YES SERVICE DOG SECURITY SYSTEMS SPECIALIST NEEDED?NO DOMESTIC VIOLENCE DO YOU FEEL SAFE IN YOUR ENVIRONMENT?YES OCCUPATION: [employer]. DIET: REGULAR. EXERCISE: NO REGULAR EXERCISE. MARITAL STATUS: .. OTHERS AT HOME: NONE. PAIN CLINIC PFS, CLERGY, PUBLIC HEALTH REFERRALS HAS THE PATIENT BEEN EDUCATED REGARDING HIS/HER PLAN OF CARE?YES HAS THE PATIENT BEEN EDUCATED REGARDING PAIN, THE RISK FOR PAIN, THE IMPORTANCE OF EFFECTIVE PAIN MANAGEMENT, AND THE PAIN ASSESSMENT PROCESS?YES HOSPITALIZATION/MAJOR DIAGNOSTIC PROCEDURE ACUTE CHOLECYSTITIS 06/10/2017 ABOVE SURGERIES REVIEW OF SYSTEMS CONSTITUTIONAL: ANY RECENT FEVER NO . CHILLS NO . WEIGHT CHANGE OF UNKNOWN REASONS NO . MUSCULOSKELETAL: ANY UNUSUAL JOINT PAIN OR SWELLING NOT MENTIONED NO . SYSTEMIC LUPUS NO . ANY NEUROMUSCULAR DISORDER NOT MENTIONED NO . LYME DISEASE NO . GASTROENTEROLOGY: ANY NEW CHANGE IN BOWEL CONTROL? NO . HISTORY OF LIVER DISORDER NOT MENTIONED NO . HISTORY OF UNUSUAL ABDOMINAL PAIN OR CRAMPING NOT MENTIONED NO . NO CONSTIPATION. GENITOURINARY: ANY NEW CHANGE IN BLADDER CONTROL? NO . ANY RENAL/KIDNEY CONDITON NOT MENTIONED NO . NEUROLOGY: HISTORY OF TBI NOT MENTIONED NO . OTHER NEW NUMBNESS OR PAIN PATTERNS NOT MENTIONED NO . NEW ONSET DIZZINESS OR NEUROLOGICAL CHANGES NOT MENTIONED NO . HISTORY OF SEVERE HEADACHES NOT MENTIONED NO . HISTORY OF STROKE OR NEUROLOGICAL DISORDER NOT MENTIONED NO . CARDIOLOGY: HEART SURGERY NO . CONGESTIVE HEART FAILURE/FLUID OVERLOAD NOT MENTIONED NO . HISTORY OF CHEST PAIN,IRREGULAR HEART BEAT NOT MENTIONED NO . RESPIRATORY: SHORTNESS OF BREATH ON EXERTION, WHEEZES, UNUSUAL COUGH NOT MENTIONED NO . ENDOCRINOLOGY: ADRENAL GLAND OR THYROID DISORDERS NOT MENTIONED NO . UNUSUAL URINATION, DIZZINESS OR LETHARGY NOT MENTIONED NO . VITAL SIGNS WT 320.8 LBS, HT 64 1/2, BMI 54.21 INDEX, BP 143/69 MM HG, HR 95 /MIN, RR 18 /MIN, TEMP 97.0 F, OXYGEN SAT % 96%, NA INITIALS AW 1312, REVIEWED BY: GAB CONN BOTTOM SANDER. EXAMINATION GENERAL EXAMINATION: GENERALNO ACUTE DISTRESS, WELL NOURISHED AND HYDRATED. PSYCHAPPROPRIATE MOOD AND AFFECT . LUNGS:CLEAR TO AUSCULTATION BILATERALLY, NO WHEEZES, RHONCHI, RALES. HEART:NO MURMURS, REGULAR RATE AND RHYTHM. BACK:POINT TENDER BASE OF LUMBAR SPINE, SURROUNDING SKIN SHOWS NO ERYTHEMA, ECCHYMOSIS, INCREASED WARMTH, AND/OR SKIN ERUPTIONS NOTED. POSITIVE MODIFIED SLR RIGHT SIDE . ASSESSMENTS INTERVERTEBRAL DISC DISORDERS WITH RADICULOPATHY, LUMBAR REGION - M51.16 (PRIMARY) TREATMENT INTERVERTEBRAL DISC DISORDERS WITH RADICULOPATHY, LUMBAR REGION START LIDOCAINE HCL CREAM, 4 %, 1 APPLICATION, EXTERNALLY, THREE TIMES A DAY, 30 DAYS, 1 TUBE, REFILLS 2 CLINICAL NOTES: 65-YEAR-OLD FEMALE IN FOR INITIAL PAIN CONSULT. PATIENT ADMITS TO BEING ON LIDOCAINE CREAM IN THE PAST AND FOUND GOOD RESULTS WITH THIS. GIVEN PRESENTING SYMPTOMS RECOMMEND LIDOCAINE CREAM WITH FOLLOW-UP IN ONE MONTH TO DETERMINE EFFICACY OF TREATMENT. PATIENT HAS EXPRESSED UNDERSTANDING OF AND WAS IN AGREEMENT WITH TREATMENT PLAN. GIVEN TIME TO ASK QUESTIONS AND EXPRESS CONCERNS. OTHERS CLINICAL NOTES: 08/18/20 ANUP GRANADOS RN BSN. PREVENTIVE MEDICINE PAIN CLINIC TEACHING: THE PATIENT HAS BEEN EDUCATED REGARDING PAIN, THE RISK FOR PAIN, THE IMPORTANCE OF EFFECTIVE PAIN MANAGEMENT, AND THE PAIN ASSESSMENT PROCESS. : PATIENT GIVEN MEDICATION EDUCATION FOR LIDOCAINE CREAM. DISCUSSED CARE PLAN WITH PATIENT, PATIENT VERBALIZES UNDERSTANDING. PROCEDURE CODES FA211 ESTABILISHED PATIENT [facility] CHARGE DISPOSITION & COMMUNICATION FOLLOW UP 4 WEEKS (REASON: NEW MEDICATION, BACK PAIN) ELECTRONICALLY SIGNED BY ADÁN LAM ON 08/23/2020 AT 09:20 AM EDT DISCLAIMER : THIS IS A VISIT SUMMARY EXTRACTED FROM THE [facility] CHART. IT IS NOT A COPY OF THE [facility] PROGRESS NOTE. ROSALINE
== END ==
LOC: M PAIN 13:00
PROVIDERS: ATTEND Family Medicine
DX: M51.16 Intervertebral disc disorders with radiculopathy, lumbar region (principal); E11.9 Type 2 diabetes mellitus without complications; I10 Essential (primary) hypertension; Z96.641 Presence of right artificial hip joint; Z88.8 Allergy status to other drugs, medicaments and biological substances; Z91.09 Other allergy status, other than to drugs and biological substances; E66.01 Morbid (severe) obesity due to excess calories; Z68.43 Body mass index [BMI] 50.0-59.9, adult; Z79.4 Long term (current) use of insulin; Z79.899 Other long term (current) drug therapy

== ENCOUNTER → 2020-09-04 | Outpatient (CLI) | payer OTHER ==
[2020-09-04 10:02] LABS: APPEARANCE, URINE CLEAR (CLEAR); BACTERIA, URINE AUTO 1+ (NEGATIVE); BILIRUBIN, URINE AUTO NEGATIVE (NEGATIVE); BLOOD, URINE BLOOD NEGATIVE (NEGATIVE); COLOR, URINE AMBER (YELLOW); GLUCOSE, URINE (UA) AUTO NEGATIVE (NEGATIVE); KETONE, URINE AUTO NEGATIVE (NEGATIVE); LEUKOCYTE ESTERASE, URINE AUTO NEGATIVE (NEGATIVE); NITRITE, URINE AUTO POSITIVE (NEGATIVE); PROTEIN, URINE AUTO NEGATIVE (NEGATIVE); RBC, URINE AUTO 4 /HPF (0-3); SPECIFIC GRAVITY URINE AUTO 1.012 (1.002-1.035); SQUAMOUS EPITHELIAL CELL UR AU 0 /HPF (0-6); WBC, URINE AUTO 8 /HPF (0-3)
== END ==
LOC: M LAB 09:17
PROVIDERS: ATTEND Urology
DX: N39.41 Urge incontinence (principal)

== ENCOUNTER → 2020-09-04 | Outpatient (CLI) | payer OTHER ==
[2020-09-04 09:55] LABS: HEMATOCRIT 38.3 % (36.0-47.0); HEMOGLOBIN 11.5 g/dl (12.0-15.5); MEAN CORPUSCULAR HEMOGLOBIN 26.1 pg (27.0-33.0); MEAN CORPUSCULAR VOLUME 86.8 fl (80.0-96.0); PLATELET COUNT, AUTOMATED 329 10^3/uL (150-450); RED BLOOD COUNT 4.41 10^6/uL (4.00-5.40); WHITE BLOOD COUNT 5.8 10^3/uL (4.0-10.0)
[2020-09-04 10:27] LABS: BLOOD UREA NITROGEN 17 MG/DL (7-18); CALCIUM LEVEL 8.6 MG/DL (8.8-10.2); CARBON DIOXIDE LEVEL 27 MEQ/L (21-32); CHLORIDE LEVEL 106 MEQ/L (98-107); CHOLESTEROL LEVEL 89 MG/DL (<200); CHOLESTEROL RISK RATIO 2.542 (<5); CREATININE FOR GFR 0.88 MG/DL (0.55-1.30); GLOMERULAR FILTRATION RATE > 60.0 (>45); GLUCOSE, FASTING 142 MG/DL (70-100); HDL CHOLESTEROL 35 MG/DL (>40); NON-HDL-C 54 MG/DL; POTASSIUM SERUM 4.6 MEQ/L (3.5-5.1); SODIUM LEVEL 139 MEQ/L (136-145); TRIGLYCERIDES LEVEL 310 MG/DL (<150)
[2020-09-04 10:58] LABS: LDL CHOLESTEROL 0 MG/DL (<100)
== END ==
LOC: M LAB 09:19
PROVIDERS: ATTEND Physician Assistant
DX: I10 Essential (primary) hypertension (principal)

== ENCOUNTER → 2020-09-19 | Outpatient (CLI) | payer OTHER ==
--- NOTE | 2020-09-21 03:15 | ECWPNPC ---
PATIENT NAME: DARIUS RUDOLPH : 1955 GENDER: FEMALE VISIT DATE: 09/19/2020 DISCHARGE DATE: 09/19/20 1149 VISIT LOCKED DATE TIME: PHYSICIAN: MATT PENA PHYSICIAN PAGER NO: ACTIVE RESOURCE: MATT PENA REASON FOR APPOINTMENT 1. BACK/NEW MED HISTORY OF PRESENT ILLNESS GENERAL: - 65-YEAR-OLD FEMALE IN FOR CHRONIC PAIN FOLLOW-UP. PATIENT ADMITS TO BEING ON GABAPENTIN IN THE PAST AND THAT IT WAS BENEFICIAL. SHE RATES HER PAIN CURRENTLY AT A 6 OUT OF 10 AND DESCRIBES IT ACHING, SHARP, STABBING, AND SHOOTING. FALL RISK SCREENING: SCREENING :TWO OR MORE FALLS WITHOUT INJURY IN THE PAST YEAR PAIN SCREENING: PATIENT HAS A COMPLAINT OF ACUTE OR CHRONIC PAIN :YES LOCATION OF PAIN:LOW BACK, LEG(S) INTENSITY OF PAIN (SCALE OF 1 TO 10):6 WHAT DOES YOUR PAIN FEEL LIKE:ACHING, SHARP, STABBING, SHOOTING DURATION:CONTINOUS, CONSTANT PAIN IS INCREASED BY:ACTIVITIES PAIN IS DECREASED BY:USE OF PAIN MEDICATIONS TREATMENT/MEDICATIONS USED TO MANAGE PAIN: GABAPENTIN LEVEL OF RELIEF FROM PAIN TREATMENTS IN THE PAST:75% PAIN HAS INTERFERED WITH THE FOLLOWING:BATHING/DRESSING, WALKING ABILITY, HOUSEWORK, SLEEP, TRANSPORTATION, TOILETING NURSING NOTE: -. PAIN CENTER INTAKE QUESTIONS: DO YOU HAVE A HISTORY OF MRSA? :NO DO YOU TAKE A BLOOD THINNERS? :NO DO YOU HAVE ANY BLEEDING DISORDERS? :NO ANY NEW NUMBNESS OR WEAKNESS IN YOUR LEGS OR ARMS? :YES RIGHT LEG WEAKNESS, DIABETIC NEUROPATHY ANY PACEMAKER,DEFIBRILLATOR, OR DORSAL COLUMN STIMULATOR? :NO DO YOU HAVE ANY RASHES OR OPEN SORES? :YES NEEDLE JONES FROM INSULIN SITES SLOW TO HEAL ARE YOU ALLERGIC TO IV DYE? :NO ARE YOU DIABETIC? :YES ANY NEW PROBLEMS WITH YOUR MEDICATIONS? :YES ANKLE EDEMA S/P GABAPENTIN HAVE YOU RECEIVED A VACCINE IN THE PAST 30 DAYS? :YES IF SO WHAT VACCINE AND WHEN? FLU VACCINE OR AUGUST DO YOU PLAN TO RECEIVE A VACCINE IN THE NEXT 21 DAYS? :NO DO YOU NEED ANY PRESCRIPTION? :YES TO DISCUSS AND REQUESTING LUZMA REFILL DO YOU TAKE ANY IMMUNOSUPPRESSIVE MEDICATIONS? :NO IS THERE A CHANCE YOU COULD BE ? :NO ARE YOU BREAST FEEDING? :NO CURRENT MEDICATIONS TAKING TROSPIUM CHLORIDE 20 MG TABLET TABLET AT BEDTIME ON AN EMPTY STOMACH ORALLY TWICE DAILY, NOTES: UP TO 60 MG TAKING CALCIUM 600 MG TABLET 1 TABLET WITH MEALS ORALLY TWICE A DAY TAKING MULTIVITAMINS - TABLET 1 TABLET ORALLY ONCE A DAY TAKING BLOOD GLUCOSE METER - KIT 1 METER DX:E11.9 6-8 TIMES DAILY PER SPECIALIST, NOTES: PLEASE DISPENSE ONE TOUCH VERIO FLEX MONITOR TAKING AMILORIDE HCL 5 MG TABLET 1 TABLET ORALLY ONCE A DAY TAKING BLOOD GLUCOSE TEST - STRIP 1 STRIP IN VITRO 6-8 TIMES DAILY DX:E11.9 TAKING VICTOZA 18 MG/3ML SOLUTION PEN-INJECTOR 0.6 MG FOR 1 WEEK, THEN 1.2MG FOR 1 WEEK, THEN 1.8MG DAILY SUBCUTANEOUS DAILY TAKING ATORVASTATIN CALCIUM 80 MG TABLET 1 TABLET ORALLY ONCE A DAY TAKING LISINOPRIL 10 MG TABLET 1 TABLET ORALLY ONCE A DAY TAKING APIDRA 100 UNIT/ML SOLUTION UNITS PER SLIDING SCALE MDD:100 INJECTION FOR AN INSULIN PUMP TAKING BUMETANIDE 1 MG TABLET DIRECTED ORALLY TAKING SUCRALFATE 1 GM TABLET 1 TABLET ON AN EMPTY STOMACH ORALLY DAILY TAKING CVS FLUTICASONE PROPIONATE 50 MCG/ACT SUSPENSION 1 SPRAY IN EACH NOSTRIL NASALLY ONCE A DAY TAKING BASAGLAR KWIKPEN 100 UNIT/ML SOLUTION PEN-INJECTOR DIRECTED SUBCUTANEOUS TAKING AMOXICILLIN 500 MG CAPSULE 4 CAPSULE ORALLY PRIOR TO DENTAL PROCEDURE TAKING FAMOTIDINE 20 MG TABLET 1 TABLET ORALLY TWICE DAILY NEEDED TAKING GABAPENTIN 300 MG CAPSULE 2 CAPSULE ORALLY TID TAKING COLESEVELAM HCL 3.75 GM PACKET 1 PACKET MIXED WITH WATER WITH A MEAL ORALLY ONCE A DAY NOT-TAKING LIDOCAINE HCL 4 % CREAM 1 APPLICATION EXTERNALLY THREE TIMES A DAY NOT-TAKING LIDODERM 5 % PATCH 1 PATCH REMOVE AFTER 12 HOURS EXTERNALLY DAILY( APPLY TO MOST PAINFUL AREA FOR 12 HOURS. 1 PATCH FOR EVERY 24 HOURS) ONCE A DAY NOT-TAKING LIDOCAINE HCL 4 % CREAM 1 APPLICATION EXTERNALLY TWICE A DAY NOT-TAKING MAY HAVE - - DEXCOM CGMS (CONTINUOUS GLUCOSE MONITOR SYSTEM) SENSORS CONTINUOUS DX: E11.9, NOTES: JOSE ROBB NOT-TAKING VOLTAREN 1 % GEL DIRECTED TRANSDERMAL DAILY NOT-TAKING CYMBALTA 60 MG CAPSULE DELAYED RELEASE PARTICLES TAKE ONE CAPSULE BY MOUTH EVERY DAY NOT-TAKING SALINE NASAL SPRAY 0.65 % SOLUTION 2 SPRAYS IN EACH NOSTRIL NEEDED NASALLY DAILY PRN NOT-TAKING LISINOPRIL 10 MG TABLET TAKE ONE TABLET BY MOUTH EVERY DAY NOT-TAKING DICLOFENAC SODIUM 1 % CREAM DIRECTED TRANSDERMAL BID NOT-TAKING IBUPROFEN 200 MG TABLET 4 TABLETS ORALLY PRN, NOTES: TAKING 6-8 TABLETS A DAY EVEN THOUGH SHE SHOULDN'T MEDICATION LIST REVIEWED AND RECONCILED WITH THE PATIENT PAST MEDICAL HISTORY LOWER EXTREMITY SWELLING INSULIN DEPENDENT DIABETES MELLITUS HYPERTENSION DYSLIPIDEMIA ENDOMETRIAL CANCER 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, CERVIX REMOVE, WELL OVARIES 2012) ALLERGIES ADHESIVE TAPE: REDNESS, ITCHING, SORES - ALLERGY HUMALOG: ITCHY LUMPS AT INJECTION SITE - ALLERGY NOVOLOG: ITCHY LUMPS AT INJECTION SITE - ALLERGY SURGICAL HISTORY TOTAL HIP REPLACEMENT R HYSTERECTOMY, TOTAL WITH BSO 2012 CARPAL TUNNEL RELEASE BILATERAL CHOLECYSTECTOMY 06/2017 COLONOSCOPY & ENDOSCOPY 10/28/17 SPINAL PAIN INJECTION 05/2018 FAMILY HISTORY FATHER: , DAD AT AGE OF 70'S FROM LUNG CA ENLARGED PROSTATE MOTHER: 62 YRS, COPD SIBLINGS: ALIVE, 1 SISTER HAS ISSUES WITH HYPOTENSION 2 SISTER(S) - HEALTHY. SOCIAL HISTORY GENERAL: TOBACCO USE ARE YOU A:NONSMOKER NEVER SMOKER LATEX QUESTIONNAIRE LATEX ALLERGY : HAVE YOU EVER DEVELOPED ANY TYPE OF REACTION AFTER HANDLING LATEX PRODUCTS SUCH RUBBER GLOVES, CONDOMS, DIAPHRAGMS, BALLOONS, SOCKS, OR UNDERWEAR?NO LATEX ALLERGY : HAVE YOU EVER DEVELOPED ANY TYPE OF REACTION DURING OR AFTER DENTAL APPOINTMENT, VAGINAL/RECTAL EXAMINATION, SURGICAL PROCEDURE, OR ANY OTHER EXPOSURE?NO DATE ASKED : 08/18/2020 LATEX RISK : HAVE YOU EVER HAD ANY DIFFICULTY BREATHING OR HIVES AFTER EATING OR HANDLING ANY FRUITS, OR VEGETABLES; SUCH KIWI, BANANAS, STONE FRUITS, OR CHESTNUTSNO LATEX RISK : DO YOU HAVE A PREVIOUS PERSONAL HISTORY OF MORE THAN NINE SURGERIES, SPINA BIFIDA, OR REPEATED CATHERIZATIONS? NO LATEX RISK : ARE YOU FREQUENTLY EXPOSED TO LATEX PRODUCTS IN YOUR OCCUPATION?NO BMI CARE GOAL FOLLOW-UP ABOVE NORMAL BMI FOLLOW-UPDIETARY NEEDS EDUCATION ALCOHOL SCREENING DID YOU HAVE A DRINK CONTAINING ALCOHOL IN THE PAST YEAR?NO POINTS0 INTERPRETATIONNEGATIVE RECREATIONAL DRUG USE DRUG USE?NO CAFFEINE CAFFEINE USE?YES 1 DIET [place] DEW PER WEEK SEXUAL HX HAD SEX IN THE LAST 12 MONTHS (VAGINAL, ORAL, OR ANAL)?NO LMP:HYSTERECTOMY HAVE YOU EVER HAD AN STD?NO HIV / HEP-C SCREENING HIV TEST OFFERED TO PATIENT:YES DATE OFFERED:06/24/2017 TEST ACCEPTED:NO HEP-C TEST OFFERED TO PATIENT:YES DATE OFFERED:06/24/2017 REASON:PATIENT DECLINED TEST ACCEPTED:NO REASON:PATIENT DECLINED ORIENTAL ORTHODOX [id number] LUTHERAN NO ORTHODOXY BELIEFS THAT WOULD IMPACT HEALTH CARE. LANGUAGE LANGUAGES SPOKEN:IRISH EDUCATION LEVEL OF EDUCATION:FINISHED COLLEGE LEARNING BARRIERS / SPECIAL NEEDS CHANGE FROM LAST VISIT?NO BARRIERS TO LEARNING?NO HEARING IMPAIRED?YES L EAR WORSE, VISION IMPAIRED?YES COGNITIVELY IMPAIRED?NO :HEARING AIDES RACHEL :CORRECTIVE LENSES READINESS TO LEARN?YES LEARNING PREFERENCES?NO LEARNING CAPABILITIES PRESENT?YES EMOTIONAL BARRIERS?NO SPECIAL DEVICES?YES SERVICE DOG SPECIAL [employer]ONS [employer] TACTICS OFFICER NEEDED?NO DOMESTIC VIOLENCE DO YOU FEEL SAFE IN YOUR ENVIRONMENT?YES OCCUPATION: [employer]. DIET: REGULAR. EXERCISE: NO REGULAR EXERCISE. MARITAL STATUS: .. OTHERS AT HOME: NONE. PAIN CLINIC PFS, CLERGY, PUBLIC HEALTH REFERRALS HAS THE PATIENT BEEN EDUCATED REGARDING HIS/HER PLAN OF CARE?YES HAS THE PATIENT BEEN EDUCATED REGARDING PAIN, THE RISK FOR PAIN, THE IMPORTANCE OF EFFECTIVE PAIN MANAGEMENT, AND THE PAIN ASSESSMENT PROCESS?YES ADVANCE DIRECTIVE ADVANCE DIRECTIVE DISCUSSED WITH PATIENT:YES PT DOES NOT HAVE A HCP, PT DECLINED PAPERWORK HOSPITALIZATION/MAJOR DIAGNOSTIC PROCEDURE ACUTE CHOLECYSTITIS 06/10/2017 ABOVE SURGERIES REVIEW OF SYSTEMS CONSTITUTIONAL: ANY RECENT FEVER NO . CHILLS NO . WEIGHT CHANGE OF UNKNOWN REASONS NO . GASTROENTEROLOGY: NEW UNEXPLAINABLE CHANGES IN BOWEL CONTROL NO . CONSTIPATION NO . GENITOURINARY: ANY NEW CHANGE IN BLADDER CONTROL? NO . NEUROLOGY: NEW ONSET DIZZINESS OR NEUROLOGICAL CHANGES NOT MENTIONED NO . NEW NUMBNESS OR PAIN PATTERNS NOT MENTIONED AND PERTINENT TO TODAY'S VISIT NO . CARDIOLOGY: NEW CHEST PRESSURE NO . NEW CHEST PAIN NO . RESPIRATORY: UNEXPLAINABLE COUGH NO . NEW SHORTNESS OF BREATH NO . VITAL SIGNS WT 320 LBS, HT 64 1/2, BMI 54.07 INDEX, BP 166/79 MM HG, HR 91 /MIN, RR 16 /MIN, TEMP 97.3 F, OXYGEN SAT % 96, SAFE IN ENV? (Y/N) Y, REVIEWED BY: EM. EXAMINATION GENERAL EXAMINATION: GENERALNO ACUTE DISTRESS, WELL NOURISHED AND HYDRATED. PSYCHAPPROPRIATE MOOD AND AFFECT . LUNGS:CLEAR TO AUSCULTATION BILATERALLY, NO WHEEZES, RHONCHI, RALES. HEART:NO MURMURS, REGULAR RATE AND RHYTHM. ASSESSMENTS INTERVERTEBRAL DISC DISORDERS WITH RADICULOPATHY, LUMBAR REGION - M51.16 (PRIMARY) TREATMENT INTERVERTEBRAL DISC DISORDERS WITH RADICULOPATHY, LUMBAR REGION REFILL GABAPENTIN TABLET, 600 MG, 1 CAPSULE, ORALLY, TID, 30 DAYS, 90 CAPSULE NOTES: 65-YEAR-OLD FEMALE IN FOR CHRONIC PAIN FOLLOW-UP. GIVEN PRESENTING SYMPTOMS RECOMMENDED INCREASING GABAPENTIN TO 600 MG 3 TIMES A DAY WITH FOLLOW-UP IN ONE MONTH TO DETERMINE EFFICACY OF TREATMENT. PATIENT HAS EXPRESSED UNDERSTANDING OF AND WAS IN AGREEMENT WITH TREATMENT PLAN. GIVEN TIME TO ASK QUESTIONS AND EXPRESS CONCERNS. OTHERS CLINICAL NOTES: 08/18/20 ANUP GRANADOS RN BSN. PROCEDURE CODES FA211 ESTABILISHED PATIENT [facility] CHARGE DISPOSITION & COMMUNICATION FOLLOW UP 4 WEEKS (REASON: MEDICATION INCREASE) ELECTRONICALLY SIGNED BY ADÁN LAM ON 09/20/2020 AT 08:56 AM EST DISCLAIMER : THIS IS A VISIT SUMMARY EXTRACTED FROM THE [employer] CHART. IT IS NOT A COPY OF THE [employer] PROGRESS NOTE. ROSALINE
== END ==
LOC: M PAIN 11:15
PROVIDERS: ATTEND Family Medicine
DX: M51.16 Intervertebral disc disorders with radiculopathy, lumbar region (principal); G89.29 Other chronic pain; E11.9 Type 2 diabetes mellitus without complications; I10 Essential (primary) hypertension; Z96.641 Presence of right artificial hip joint; Z88.8 Allergy status to other drugs, medicaments and biological substances; Z91.09 Other allergy status, other than to drugs and biological substances; E66.01 Morbid (severe) obesity due to excess calories; Z68.43 Body mass index [BMI] 50.0-59.9, adult; Z79.4 Long term (current) use of insulin; Z79.899 Other long term (current) drug therapy

== ENCOUNTER → 2020-10-17 | Outpatient (CLI) | payer OTHER ==
--- NOTE | 2020-10-19 04:17 | ECWPNPC ---
PATIENT NAME: DARIUS RUDOLPH : 1955 GENDER: FEMALE VISIT DATE: 10/17/2020 DISCHARGE DATE: 10/17/20 1447 VISIT LOCKED DATE TIME: PHYSICIAN: MATT PENA PHYSICIAN PAGER NO: ACTIVE RESOURCE: MATT PENA REASON FOR APPOINTMENT 1. MEDICATION INCREASE HISTORY OF PRESENT ILLNESS GENERAL: 65-YEAR-OLD FEMALE IN FOR CHRONIC PAIN FOLLOW-UP. AT LAST CLINIC VISIT PATIENT'S GABAPENTIN WAS INCREASED AND SHE ADMITS TODAY THAT THIS WAS VERY BENEFICIAL. SHE RATES HER PAIN CURRENTLY AT A 5 OUT OF 10 AND DESCRIBES IT ACHING, SHARP, AND SHOOTING. SHE DOES ADMIT THAT THE GABAPENTIN DOES NOT HELP WITH THE LOW BACK PAIN. FALL RISK SCREENING: SCREENING :TWO OR MORE FALLS WITHOUT INJURY IN THE PAST YEAR PAIN SCREENING: PATIENT HAS A COMPLAINT OF ACUTE OR CHRONIC PAIN :YES LOCATION OF PAIN:LOW BACK, LEG(S) INTENSITY OF PAIN (SCALE OF 1 TO 10):5 WHAT DOES YOUR PAIN FEEL LIKE:ACHING, SHARP, SHOOTING DURATION:CONTINOUS, CONSTANT PAIN IS INCREASED BY:ACTIVITIES PAIN IS DECREASED BY:USE OF PAIN MEDICATIONS TREATMENT/MEDICATIONS USED TO MANAGE PAIN: GABAPENTIN LEVEL OF RELIEF FROM PAIN TREATMENTS IN THE PAST:75% PAIN HAS INTERFERED WITH THE FOLLOWING:BATHING/DRESSING, WALKING ABILITY, HOUSEWORK, TRANSPORTATION, TOILETING NURSING NOTE: -. PAIN CENTER INTAKE QUESTIONS: DO YOU HAVE A HISTORY OF MRSA? :NO DO YOU TAKE A BLOOD THINNERS? :NO DO YOU HAVE ANY BLEEDING DISORDERS? :NO ANY NEW NUMBNESS OR WEAKNESS IN YOUR LEGS OR ARMS? :YES LEFT ARM NUMBNESS ANY PACEMAKER,DEFIBRILLATOR, OR DORSAL COLUMN STIMULATOR? :NO DO YOU HAVE ANY RASHES OR OPEN SORES? :NO ARE YOU ALLERGIC TO IV DYE? :NO ARE YOU DIABETIC? :YES ANY NEW PROBLEMS WITH YOUR MEDICATIONS? :NO HAVE YOU RECEIVED A VACCINE IN THE PAST 30 DAYS? :NO DO YOU PLAN TO RECEIVE A VACCINE IN THE NEXT 21 DAYS? :NO DO YOU NEED ANY PRESCRIPTION? :YES REFILL LUZMA DO YOU TAKE ANY IMMUNOSUPPRESSIVE MEDICATIONS? :NO IS THERE A CHANCE YOU COULD BE ? :NO ARE YOU BREAST FEEDING? :NO CURRENT MEDICATIONS TAKING TROSPIUM CHLORIDE 20 MG TABLET TABLET AT BEDTIME ON AN EMPTY STOMACH ORALLY TWICE DAILY, NOTES: UP TO 60 MG TAKING CALCIUM 600 MG TABLET 1 TABLET WITH MEALS ORALLY TWICE A DAY TAKING MULTIVITAMINS - TABLET 1 TABLET ORALLY ONCE A DAY TAKING BLOOD GLUCOSE METER - KIT 1 METER DX:E11.9 6-8 TIMES DAILY PER SPECIALIST, NOTES: PLEASE DISPENSE ONE TOUCH VERIO FLEX MONITOR TAKING AMILORIDE HCL 5 MG TABLET 1 TABLET ORALLY ONCE A DAY TAKING BLOOD GLUCOSE TEST - STRIP 1 STRIP IN VITRO 6-8 TIMES DAILY DX:E11.9 TAKING VICTOZA 18 MG/3ML SOLUTION PEN-INJECTOR 0.6 MG FOR 1 WEEK, THEN 1.2MG FOR 1 WEEK, THEN 1.8MG DAILY SUBCUTANEOUS DAILY TAKING ATORVASTATIN CALCIUM 80 MG TABLET 1 TABLET ORALLY ONCE A DAY TAKING LISINOPRIL 10 MG TABLET 1 TABLET ORALLY ONCE A DAY TAKING APIDRA 100 UNIT/ML SOLUTION UNITS PER SLIDING SCALE MDD:100 INJECTION FOR AN INSULIN PUMP TAKING BUMETANIDE 1 MG TABLET DIRECTED ORALLY TAKING SUCRALFATE 1 GM TABLET 1 TABLET ON AN EMPTY STOMACH ORALLY DAILY TAKING [facility]S FLUTICASONE PROPIONATE 50 MCG/ACT SUSPENSION 1 SPRAY IN EACH NOSTRIL NASALLY ONCE A DAY TAKING BASAGLAR KWIKPEN 100 UNIT/ML SOLUTION PEN-INJECTOR DIRECTED SUBCUTANEOUS TAKING AMOXICILLIN 500 MG CAPSULE 4 CAPSULE ORALLY PRIOR TO DENTAL PROCEDURE TAKING FAMOTIDINE 20 MG TABLET 1 TABLET ORALLY TWICE DAILY NEEDED TAKING COLESEVELAM HCL 3.75 GM PACKET 1 PACKET MIXED WITH WATER WITH A MEAL ORALLY ONCE A DAY TAKING GABAPENTIN 600 MG TABLET 1 CAPSULE ORALLY TID NOT-TAKING LIDOCAINE HCL 4 % CREAM 1 APPLICATION EXTERNALLY THREE TIMES A DAY NOT-TAKING LIDODERM 5 % PATCH 1 PATCH REMOVE AFTER 12 HOURS EXTERNALLY DAILY( APPLY TO MOST PAINFUL AREA FOR 12 HOURS. 1 PATCH FOR EVERY 24 HOURS) ONCE A DAY NOT-TAKING LIDOCAINE HCL 4 % CREAM 1 APPLICATION EXTERNALLY TWICE A DAY NOT-TAKING MAY HAVE - - SOAMAI CGMS (CONTINUOUS GLUCOSE MONITOR SYSTEM) SENSORS CONTINUOUS DX: E11.9, NOTES: JOSE ROBB NOT-TAKING VOLTAREN 1 % GEL DIRECTED TRANSDERMAL DAILY NOT-TAKING CYMBALTA 60 MG CAPSULE DELAYED RELEASE PARTICLES TAKE ONE CAPSULE BY MOUTH EVERY DAY NOT-TAKING SALINE NASAL SPRAY 0.65 % SOLUTION 2 SPRAYS IN EACH NOSTRIL NEEDED NASALLY DAILY PRN NOT-TAKING LISINOPRIL 10 MG TABLET TAKE ONE TABLET BY MOUTH EVERY DAY NOT-TAKING DICLOFENAC SODIUM 1 % CREAM DIRECTED TRANSDERMAL BID NOT-TAKING IBUPROFEN 200 MG TABLET 4 TABLETS ORALLY PRN, NOTES: TAKING 6-8 TABLETS A DAY EVEN THOUGH SHE SHOULDN'T MEDICATION LIST REVIEWED AND RECONCILED WITH THE PATIENT PAST MEDICAL HISTORY LOWER EXTREMITY SWELLING INSULIN DEPENDENT DIABETES MELLITUS HYPERTENSION DYSLIPIDEMIA ENDOMETRIAL CANCER 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, CERVIX REMOVE, WELL OVARIES 2012) ALLERGIES ADHESIVE TAPE: REDNESS, ITCHING, SORES - ALLERGY HUMALOG: ITCHY LUMPS AT INJECTION SITE - ALLERGY NOVOLOG: ITCHY LUMPS AT INJECTION SITE - ALLERGY SURGICAL HISTORY TOTAL HIP REPLACEMENT R HYSTERECTOMY, TOTAL WITH BSO 2012 CARPAL TUNNEL RELEASE BILATERAL CHOLECYSTECTOMY 06/2017 COLONOSCOPY & ENDOSCOPY 10/28/17 SPINAL PAIN INJECTION 05/2018 FAMILY HISTORY FATHER: , DAD AT AGE OF 70'S FROM LUNG CA ENLARGED PROSTATE MOTHER: 62 YRS, COPD SIBLINGS: ALIVE, 1 SISTER HAS ISSUES WITH HYPOTENSION 2 SISTER(S) - HEALTHY. SOCIAL HISTORY GENERAL: TOBACCO USE ARE YOU A:NONSMOKER NEVER SMOKER LATEX QUESTIONNAIRE LATEX ALLERGY : HAVE YOU EVER DEVELOPED ANY TYPE OF REACTION AFTER HANDLING LATEX PRODUCTS SUCH RUBBER GLOVES, CONDOMS, DIAPHRAGMS, BALLOONS, SOCKS, OR UNDERWEAR?NO LATEX ALLERGY : HAVE YOU EVER DEVELOPED ANY TYPE OF REACTION DURING OR AFTER DENTAL APPOINTMENT, VAGINAL/RECTAL EXAMINATION, SURGICAL PROCEDURE, OR ANY OTHER EXPOSURE?NO DATE ASKED : 08/18/2020 LATEX RISK : HAVE YOU EVER HAD ANY DIFFICULTY BREATHING OR HIVES AFTER EATING OR HANDLING ANY FRUITS, OR VEGETABLES; SUCH KIWI, BANANAS, STONE FRUITS, OR CHESTNUTSNO LATEX RISK : DO YOU HAVE A PREVIOUS PERSONAL HISTORY OF MORE THAN NINE SURGERIES, SPINA BIFIDA, OR REPEATED CATHERIZATIONS? NO LATEX RISK : ARE YOU FREQUENTLY EXPOSED TO LATEX PRODUCTS IN YOUR OCCUPATION?NO BMI CARE GOAL FOLLOW-UP ABOVE NORMAL BMI FOLLOW-UPDIETARY NEEDS EDUCATION ALCOHOL SCREENING DID YOU HAVE A DRINK CONTAINING ALCOHOL IN THE PAST YEAR?NO POINTS0 INTERPRETATIONNEGATIVE RECREATIONAL DRUG USE DRUG USE?NO CAFFEINE CAFFEINE USE?YES 1 DIET [place]W PER WEEK SEXUAL HX HAD SEX IN THE LAST 12 MONTHS (VAGINAL, ORAL, OR ANAL)?NO LMP:HYSTERECTOMY HAVE YOU EVER HAD AN STD?NO HIV / HEP-C SCREENING HIV TEST OFFERED TO PATIENT:YES DATE OFFERED:06/24/2017 TEST ACCEPTED:NO HEP-C TEST OFFERED TO PATIENT:YES DATE OFFERED:06/24/2017 REASON:PATIENT DECLINED TEST ACCEPTED:NO REASON:PATIENT DECLINED PENTECOSTALISM [id number] MU-ISM NO HINDUISM BELIEFS THAT WOULD IMPACT HEALTH CARE. 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 DIET: REGULAR. EXERCISE: NO REGULAR EXERCISE. MARITAL STATUS: .. OTHERS AT HOME: NONE. PAIN CLINIC PFS, CLERGY, PUBLIC HEALTH REFERRALS HAS THE PATIENT BEEN EDUCATED REGARDING HIS/HER PLAN OF CARE?YES HAS THE PATIENT BEEN EDUCATED REGARDING PAIN, THE RISK FOR PAIN, THE IMPORTANCE OF EFFECTIVE PAIN MANAGEMENT, AND THE PAIN ASSESSMENT PROCESS?YES ADVANCE DIRECTIVE ADVANCE DIRECTIVE DISCUSSED WITH PATIENT:YES PT DOES NOT HAVE A HCP, PT DECLINED PAPERWORK HOSPITALIZATION/MAJOR DIAGNOSTIC PROCEDURE ACUTE CHOLECYSTITIS 06/10/2017 ABOVE SURGERIES REVIEW OF SYSTEMS CONSTITUTIONAL: ANY RECENT FEVER NO . CHILLS NO . WEIGHT CHANGE OF UNKNOWN REASONS NO . GASTROENTEROLOGY: NEW UNEXPLAINABLE CHANGES IN BOWEL CONTROL NO . CONSTIPATION NO . GENITOURINARY: ANY NEW CHANGE IN BLADDER CONTROL? NO . NEUROLOGY: NEW ONSET DIZZINESS OR NEUROLOGICAL CHANGES NOT MENTIONED NO . NEW NUMBNESS OR PAIN PATTERNS NOT MENTIONED AND PERTINENT TO TODAY'S VISIT NO . CARDIOLOGY: NEW CHEST PRESSURE NO . NEW CHEST PAIN NO . RESPIRATORY: UNEXPLAINABLE COUGH NO . NEW SHORTNESS OF BREATH NO . VITAL SIGNS WT 315.6 LBS, HT 64 1/2, BMI 53.33 INDEX, BP 139/70 MM HG, HR 91 /MIN, RR 18 /MIN, TEMP 96.1 F, OXYGEN SAT % 95%, SAFE IN ENV? (Y/N) Y, NA INITIALS OK 13:53, REVIEWED BY: EM. EXAMINATION GENERAL EXAMINATION: GENERALNO ACUTE DISTRESS, WELL NOURISHED AND HYDRATED. PSYCHAPPROPRIATE MOOD AND AFFECT . LUNGS:CLEAR TO AUSCULTATION BILATERALLY, NO WHEEZES, RHONCHI, RALES. HEART:NO MURMURS, REGULAR RATE AND RHYTHM. BACK:POINT TENDER BILATERAL LUMBAR SPINE, SURROUNDING SKIN SHOWS NO ERYTHEMA, ECCHYMOSIS, INCREASED WARMTH, AND/OR SKIN ERUPTIONS NOTED. . MUSCULOSKELETAL:NOTABLE WEAKNESS OF THE RIGHT LOWER EXTREMITY LEFT LOWER EXTREMITY WITHIN NORMAL LIMITS . ASSESSMENTS INTERVERTEBRAL DISC DISORDER WITH RADICULOPATHY OF LUMBOSACRAL REGION - M51.17 (PRIMARY) TREATMENT INTERVERTEBRAL DISC DISORDER WITH RADICULOPATHY OF LUMBOSACRAL REGION NOTES: 65-YEAR-OLD FEMALE IN FOR CHRONIC PAIN FOLLOW-UP. GIVEN PRESENTING SYMPTOMS AND RESULTS OF PHYSICAL EXAMINATION RECOMMENDED LUMBAR EPIDURAL STEROID INJECTION WITH POST PROCEDURAL FOLLOW-UP. PATIENT HAS EXPRESSED UNDERSTANDING OF AND WAS IN AGREEMENT WITH TREATMENT PLAN. GIVEN TIME TO ASK QUESTIONS AND EXPRESS CONCERNS. PROCEDURE CODES FA211 ESTABILISHED PATIENT [facility] FACILITY CHARGE DISPOSITION & COMMUNICATION FOLLOW UP POSTPROCEDURE (REASON: LUMBAR EPIDURAL STEROID INJECTION) ELECTRONICALLY SIGNED BY ADÁN LAM ON 10/18/2020 AT 09:15 AM EST DISCLAIMER : THIS IS A VISIT SUMMARY EXTRACTED FROM THE [employer] CHART. IT IS NOT A COPY OF THE [employer] PROGRESS NOTE. ROSALINE
== END ==
LOC: M PAIN 13:45
PROVIDERS: ATTEND Family Medicine
DX: M51.17 Intervertebral disc disorders with radiculopathy, lumbosacral region (principal); G89.29 Other chronic pain; E11.9 Type 2 diabetes mellitus without complications; Z96.641 Presence of right artificial hip joint; Z88.8 Allergy status to other drugs, medicaments and biological substances; Z91.09 Other allergy status, other than to drugs and biological substances; E66.01 Morbid (severe) obesity due to excess calories; Z68.43 Body mass index [BMI] 50.0-59.9, adult; Z79.4 Long term (current) use of insulin; Z79.899 Other long term (current) drug therapy

== ENCOUNTER → 2020-11-13 | Outpatient (CLI) | payer OTHER ==
[2020-11-13 12:42] LABS: APPEARANCE, URINE CLEAR (CLEAR); BACTERIA, URINE AUTO 1+ (NEGATIVE); BILIRUBIN, URINE AUTO NEGATIVE (NEGATIVE); BLOOD, URINE BLOOD NEGATIVE (NEGATIVE); COLOR, URINE AMBER (YELLOW); GLUCOSE, URINE (UA) AUTO NEGATIVE (NEGATIVE); KETONE, URINE AUTO NEGATIVE (NEGATIVE); LEUKOCYTE ESTERASE, URINE AUTO 3+ (NEGATIVE); NITRITE, URINE AUTO POSITIVE (NEGATIVE); PROTEIN, URINE AUTO NEGATIVE (NEGATIVE); RBC, URINE AUTO 11 /HPF (0-3); SPECIFIC GRAVITY URINE AUTO 1.004 (1.002-1.035); SQUAMOUS EPITHELIAL CELL UR AU 0 /HPF (0-6); WBC, URINE AUTO TNTC /HPF (0-3)
== END ==
LOC: M LAB 11:52
PROVIDERS: ATTEND Urology
DX: R35.0 Frequency of micturition (principal)

== ENCOUNTER → 2020-11-22 | Outpatient (CLI) | payer OTHER | LOC: M LABSMTC 14:01 | PROVIDERS: ATTEND Anesthesiology | DX: Z01.812 Encounter for preprocedural laboratory examination (principal); Z20.822 Contact with and (suspected) exposure to COVID-19 ==

== ENCOUNTER → 2020-11-27 | Outpatient (CLI) | payer OTHER ==
[~2020-11-27] MED LIST changes: +HYDR-3490 PO; -HYDR25TAB PO; +LISI10TA22 PO; -LISI10TA4 PO
[2020-11-27 14:20] LABS: ALBUMIN 3.7 GM/DL (3.2-5.2); ALT/SGPT 67 U/L (12-78); BILIRUBIN,TOTAL 0.5 MG/DL (0.2-1.0); BLOOD UREA NITROGEN 18 MG/DL (7-18); CALCIUM LEVEL 9.4 MG/DL (8.8-10.2); CARBON DIOXIDE LEVEL 28 MEQ/L (21-32); CHLORIDE LEVEL 105 MEQ/L (98-107); CHOLESTEROL LEVEL 191 MG/DL (<200); CHOLESTEROL RISK RATIO 5.617 (<5); CREATININE FOR GFR 0.79 MG/DL (0.55-1.30); FREE T4 0.85 NG/DL (0.76-1.46); GLOMERULAR FILTRATION RATE > 60.0 (>45); GLUCOSE, FASTING 100 MG/DL (70-100); HDL CHOLESTEROL 34 MG/DL (>40); NON-HDL-C 157 MG/DL; POTASSIUM SERUM 4.9 MEQ/L (3.5-5.1); SODIUM LEVEL 137 MEQ/L (136-145); TRIGLYCERIDES LEVEL 560 MG/DL (<150)
[2020-11-27 14:27] LABS: MALB URINE SIEMENS 6.6 MG/L; MAU/CREAT RATIO 6.4 MCG/MG (0.0-30.0)
[2020-11-27 15:30] LABS: TOTAL 25(OH) VITAMIN D 28.1 NG/ML (30.0-100.0)
== END ==
LOC: M LAB 12:00
PROVIDERS: ATTEND Nurse Practitioner Family
DX: E11.65 Type 2 diabetes mellitus with hyperglycemia (principal)

== ENCOUNTER → 2020-11-27 | Outpatient (CLI) | payer OTHER ==
[~2020-11-27] MED LIST changes: +ISOVUE-M 300 61% 15ML VIAL As Ordered ONE; +LIDOCAINE 1% SDV 30ML VIAL As Ordered ONE; +NORCO, ANEXSIA 5/325MG TABLET (HYDROcodone/ACETAMINOPHEN) As Ordered ONE; +methylPREDNISolone SUSP 40MG/ML 1ML VIAL (DEPO MEDROL) As Ordered ONE
--- NOTE | 2020-11-27 16:06 | REP ---
INDICATION: PAIN. COMPARISON: None. TECHNIQUE: Three views. 8.1 seconds of fluoroscopy time is reported. FINDINGS: A sequence of 3 last image hold fluoroscopically obtained spot radiograph(s) of the lumbar spine document(s) needle position(s) and contrast injection associated with injection procedure. IMPRESSION: Procedural imaging. <Electronically signed by Rigoberto Prakash > 11/27/20 [id number]
--- NOTE | 2020-11-30 03:42 | ECWPNPC ---
PATIENT NAME: DARIUS RUDOLPH : 1955 GENDER: FEMALE VISIT DATE: 11/27/2020 DISCHARGE DATE: 11/27/20 1610 VISIT LOCKED DATE TIME: PHYSICIAN: MOSHE ERICKSON MD PHYSICIAN PAGER NO: ACTIVE RESOURCE: MOSHE ERICKSON MD REASON FOR APPOINTMENT 1. LUMBAR EPIDURAL STEROID INJECTION HISTORY OF PRESENT ILLNESS GENERAL: -. FALL RISK SCREENING: SCREENING :NO FALLS REPORTED IN THE LAST YEAR PAIN SCREENING: PATIENT HAS A COMPLAINT OF ACUTE OR CHRONIC PAIN :YES LOCATION OF PAIN:LOW BACK, RIGHT HIP INTENSITY OF PAIN (SCALE OF 1 TO 10):9.5 WHAT DOES YOUR PAIN FEEL LIKE:OTHER FEELS LIKE A VISE IS SQUEEZING DURATION:CONTINOUS ALL THE TIME IN LOW BACK, RIGHT HIP SOMETIMES PAIN IS INCREASED BY:ACTIVITIES STANDING TOO LONG PAIN IS DECREASED BY:SITTING, OTHERS WALKING NURSING NOTE: -. PAIN CENTER INTAKE QUESTIONS: DO YOU HAVE A HISTORY OF MRSA? :NO DO YOU TAKE A BLOOD THINNERS? :NO DO YOU HAVE ANY BLEEDING DISORDERS? :NO ANY NEW NUMBNESS OR WEAKNESS IN YOUR LEGS OR ARMS? :NO ANY PACEMAKER,DEFIBRILLATOR, OR DORSAL COLUMN STIMULATOR? :NO DO YOU HAVE ANY RASHES OR OPEN SORES? :NO ARE YOU ALLERGIC TO IV DYE? :NO ARE YOU DIABETIC? :YES ANY NEW PROBLEMS WITH YOUR MEDICATIONS? :NO HAVE YOU RECEIVED A VACCINE IN THE PAST 30 DAYS? :NO DO YOU PLAN TO RECEIVE A VACCINE IN THE NEXT 21 DAYS? :NO DO YOU TAKE ANY IMMUNOSUPPRESSIVE MEDICATIONS? :NO ANY HISTORY OF SEIZURES? :NO ANY HISTORY OF CARDIAC ISSUES OR EVENTS? :NO DO YOU HAVE SLEEP APNEA? :NO ANY RECENT HEAD INJURY? :NO DO YOU HAVE ANY NEW INFECTIONS? :NO IS THERE A CHANCE YOU COULD BE ? :NO ARE YOU BREAST FEEDING? :NO WHEN DID YOU LAST EAT? : -11/26 1900 WHEN DID YOU LAST DRINK? : -11/27 1200 WHAT DID YOU LAST DRINK? : -Nuvilex DE NAME OF PERSON DRIVING YOU HOME? : GINO- FRIEND DO YOU HAVE ANY OTHER QUESTIONS OR CONCERNS? : - CURRENT MEDICATIONS TAKING DYMISTA NASAL SPRAY AZELASTINE HYRDOCHLORIDE 137MCG & FLUTICASONE PROPIONATE 50MCG( SOLUTION ONE SPRAY PER NOSTRIL NASALLLY TWICE DAILY TAKING TROSPIUM CHLORIDE 20 MG TABLET TABLET AT BEDTIME ON AN EMPTY STOMACH ORALLY TWICE DAILY, NOTES: UP TO 60 MG TAKING CALCIUM 600 MG TABLET 1 TABLET WITH MEALS ORALLY TWICE A DAY TAKING MULTIVITAMINS - TABLET 1 TABLET ORALLY ONCE A DAY TAKING BLOOD GLUCOSE METER - KIT 1 METER DX:E11.9 6-8 TIMES DAILY PER SPECIALIST, NOTES: PLEASE DISPENSE ONE TOUCH VERIO FLEX MONITOR TAKING AMILORIDE HCL 5 MG TABLET 1 TABLET ORALLY ONCE A DAY, NOTES: 11/26 2200 TAKING BLOOD GLUCOSE TEST - STRIP 1 STRIP IN VITRO 6-8 TIMES DAILY DX:E11.9 TAKING VICTOZA 18 MG/3ML SOLUTION PEN-INJECTOR 0.6 MG FOR 1 WEEK, THEN 1.2MG FOR 1 WEEK, THEN 1.8MG DAILY SUBCUTANEOUS DAILY, NOTES: 11/26 0900 TAKING ATORVASTATIN CALCIUM 80 MG TABLET 1 TABLET ORALLY ONCE A DAY TAKING LISINOPRIL 10 MG TABLET 1 TABLET ORALLY ONCE A DAY, NOTES: 11/26 2199 TAKING APIDRA 100 UNIT/ML SOLUTION UNITS PER SLIDING SCALE MDD:100 INJECTION FOR AN INSULIN PUMP, NOTES: OFF AT 1330 11/27 TAKING BUMETANIDE 1 MG TABLET DIRECTED ORALLY TAKING SUCRALFATE 1 GM TABLET 1 TABLET ON AN EMPTY STOMACH ORALLY DAILY TAKING BASAGLAR KWIKPEN 100 UNIT/ML SOLUTION PEN-INJECTOR DIRECTED SUBCUTANEOUS , NOTES: PRN TAKING FAMOTIDINE 20 MG TABLET 1 TABLET ORALLY TWICE DAILY NEEDED TAKING GABAPENTIN 800 MG TABLET 1 CAPSULE ORALLY TID TAKING COLESEVELAM HCL 625 MG TABLET 3 TABLETS WITH MEALS ORALLY TWICE A DAY TAKING ACETAMINOPHEN 500 MG TABLET 2 TABLETS ORALLY EVERY 6 HOURS NEEDED (MDD 3000 MG), NOTES: 11/27 0930 NOT-TAKING [facility] FLUTICASONE PROPIONATE 50 MCG/ACT SUSPENSION 1 SPRAY IN EACH NOSTRIL NASALLY ONCE A DAY NOT-TAKING AMOXICILLIN 500 MG CAPSULE 4 CAPSULE ORALLY PRIOR TO DENTAL PROCEDURE, NOTES: TAKES WHEN SHE HAS DENTAL PROCEDURE NOT-TAKING AZELASTINE HCL 0.15 % SOLUTION 2 SPRAYS IN EACH NOSTRIL NASALLY ONCE A DAY NOT-TAKING AZELASTINE HCL 0.1 % SOLUTION 1 PUFF IN EACH NOSTRIL NASALLY TWICE A DAY NOT-TAKING AZELASTINE HCL 0.15 % SOLUTION 2 SPRAYS IN EACH NOSTRIL NASALLY ONCE A DAY NOT-TAKING AZELASTINE HCL 0.1 % SOLUTION 1 PUFF IN EACH NOSTRIL NASALLY TWICE A DAY MEDICATION LIST REVIEWED AND RECONCILED WITH THE PATIENT PAST MEDICAL HISTORY LOWER EXTREMITY SWELLING INSULIN DEPENDENT DIABETES MELLITUS HYPERTENSION DYSLIPIDEMIA ENDOMETRIAL CANCER 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, CERVIX REMOVE, WELL OVARIES 2012) ALLERGIES ADHESIVE TAPE: REDNESS, ITCHING, SORES - ALLERGY HUMALOG: ITCHY LUMPS AT INJECTION SITE - ALLERGY NOVOLOG: ITCHY LUMPS AT INJECTION SITE - ALLERGY SURGICAL HISTORY TOTAL HIP REPLACEMENT R HYSTERECTOMY, TOTAL WITH BSO 2012 CARPAL TUNNEL RELEASE BILATERAL CHOLECYSTECTOMY 06/2017 COLONOSCOPY & ENDOSCOPY 10/28/17 SPINAL PAIN INJECTION 05/2018 FAMILY HISTORY FATHER: , DAD AT AGE OF 70'S FROM LUNG CA ENLARGED PROSTATE MOTHER: 62 YRS, COPD SIBLINGS: ALIVE, 1 SISTER HAS ISSUES WITH HYPOTENSION 2 SISTER(S) - HEALTHY. SOCIAL HISTORY GENERAL: TOBACCO USE ARE YOU A:NONSMOKER NEVER SMOKER LATEX QUESTIONNAIRE LATEX ALLERGY : HAVE YOU EVER DEVELOPED ANY TYPE OF REACTION AFTER HANDLING LATEX PRODUCTS SUCH RUBBER GLOVES, CONDOMS, DIAPHRAGMS, BALLOONS, SOCKS, OR UNDERWEAR?NO LATEX ALLERGY : HAVE YOU EVER DEVELOPED ANY TYPE OF REACTION DURING OR AFTER DENTAL APPOINTMENT, VAGINAL/RECTAL EXAMINATION, SURGICAL PROCEDURE, OR ANY OTHER EXPOSURE?NO LATEX RISK : HAVE YOU EVER HAD ANY DIFFICULTY BREATHING OR HIVES AFTER EATING OR HANDLING ANY FRUITS, OR VEGETABLES; SUCH KIWI, BANANAS, STONE FRUITS, OR CHESTNUTSNO LATEX RISK : DO YOU HAVE A PREVIOUS PERSONAL HISTORY OF MORE THAN NINE SURGERIES, SPINA BIFIDA, OR REPEATED CATHERIZATIONS? NO LATEX RISK : ARE YOU FREQUENTLY EXPOSED TO LATEX PRODUCTS IN YOUR OCCUPATION?NO DATE ASKED : 11/24/2020 BMI CARE GOAL FOLLOW-UP ABOVE NORMAL BMI FOLLOW-UPDIETARY NEEDS EDUCATION ALCOHOL SCREENING DID YOU HAVE A DRINK CONTAINING ALCOHOL IN THE PAST YEAR?NO POINTS0 INTERPRETATIONNEGATIVE RECREATIONAL DRUG USE DRUG USE?NO CAFFEINE CAFFEINE USE?YES 1 DIET [place] DEW PER WEEK SEXUAL HX HAD SEX IN THE LAST 12 MONTHS (VAGINAL, ORAL, OR ANAL)?NO LMP:HYSTERECTOMY HAVE YOU EVER HAD AN STD?NO HIV / HEP-C SCREENING HIV TEST OFFERED TO PATIENT:YES DATE OFFERED:06/24/2017 TEST ACCEPTED:NO HEP-C TEST OFFERED TO PATIENT:YES DATE OFFERED:06/24/2017 REASON:PATIENT DECLINED TEST ACCEPTED:NO REASON:PATIENT DECLINED BUDDHIST [id number] SPIRITISM NO BUDDHIST BELIEFS THAT WOULD IMPACT HEALTH CARE. LANGUAGE LANGUAGES SPOKEN:SPANISH EDUCATION LEVEL OF EDUCATION:FINISHED COLLEGE LEARNING BARRIERS / SPECIAL NEEDS CHANGE FROM LAST VISIT?NO BARRIERS TO LEARNING?NO HEARING IMPAIRED?YES L EAR WORSE, :HEARING AIDES RACHEL. 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 DIET: REGULAR. EXERCISE: NO REGULAR EXERCISE. MARITAL STATUS: .. OTHERS AT HOME: NONE. - HAS THE PATIENT BEEN EDUCATED REGARDING HIS/HER PLAN OF CARE?YES HAS THE PATIENT BEEN EDUCATED REGARDING PAIN, THE RISK FOR PAIN, THE IMPORTANCE OF EFFECTIVE PAIN MANAGEMENT, AND THE PAIN ASSESSMENT PROCESS?YES ADVANCE DIRECTIVE ADVANCE DIRECTIVE DISCUSSED WITH PATIENT:YES PT DOES NOT HAVE A HCP, PT DECLINED PAPERWORK HOSPITALIZATION/MAJOR DIAGNOSTIC PROCEDURE ACUTE CHOLECYSTITIS 06/10/2017 ABOVE SURGERIES VITAL SIGNS WT 320.2 LBS, HT 64 1/2, BMI 54.11 INDEX, BP 148/82 MM HG, HR 79 /MIN, RR 20 /MIN, TEMP 97.6 F, OXYGEN SAT % 97%, BLOOD GLUCOSE LEVEL 93 AT 12:30, SAFE IN ENV? (Y/N) YES, NA INITIALS SC 13:22, REVIEWED BY: DENNIS RN. EXAMINATION GENERAL EXAMINATION: THE PATIENT IS ALERT, ORIENTED TIMES THREE AND COOPERATIVE. LUNGS ARE CLEAR TO AUSCULTATION. HEART SHOWS REGULAR RHYTHM, NO MURMURS AND NO GALLOPS. ASSESSMENTS INTERVERTEBRAL DISC DISORDERS WITH RADICULOPATHY, LUMBAR REGION - M51.16 (PRIMARY) TREATMENT INTERVERTEBRAL DISC DISORDERS WITH RADICULOPATHY, LUMBAR REGION [facility] FLUORO GUIDE SPINE INJECTION (PAIN)[id number] MEDICATION: NORCO TABLET 5MG/325MG ORALLY (HYDROCODONE/ACETAMINOPHEN)POLO HOYT 11/27/2020 1:51:51 PM > LOT# [id number]. EXPIRATION # 01/2022. CELI ONTIVEROS 11/27/2020 1:53:32 PM > VERIFIED. POLO HOYT 11/27/2020 1:55:55 PM > ADMINISTERED 1355 SALINE LOCKCOURTNEYPOLO TITUS 11/27/2020 2:25:01 PM > #22 IV INITIATED RIGHT HAND ON FIRST ATTEMPT. PATIENT TOLERATED IV START WELL. NOTES: DISCHARGE INSTRUCTIONS REVIEWED WITH PATIENT AND PATIENT VERBALIZED UNDERSTANDING. OTHERS NOTES: PRE PROCEDURE PHONE CALL COMPLETED 11/24/2020 1600 Eric MALAVE RN. PROCEDURES PAIN NURSING RECORD PROCEDURE IN ROOM 1520, PHYSICIAN IN ROOM 1530, START 1538, FINISH 1543, PHYSICIAN OUT OF ROOM 1550, OUT OF ROOM 1552, ECG NORMAL SINUS, PATIENT SHIELDED YES, SAFETY STRAP YES, PREP BETADINE BY Andreea HOYT RN, DRESSING TEGADERM BY DR ERICKSON LOC: POLO HOYT 11/27/2020 2:26:53 PM > , 1. ALERT, ORIENTED RESP: POLO HOYT 11/27/2020 2:27:01 PM > , 1. REGULAR, NO DYSPNEA COLOR: POLO HOYT 11/27/2020 2:27:05 PM > , 1. PINK SKIN: POLO HOYT 11/27/2020 2:27:08 PM > , 1. WARM, DRY POSITION: 1. PRONE VITALS: POLO HOYT 11/27/2020 3:25:20 PM > 158/86 HR 74 16 98% R/A , POLO HOYT 11/27/2020 3:40:06 PM > 143/82 HR 75 16 98% R/A , POLO HOYT 11/27/2020 4:10:54 PM > 144/87 HR 84 16 99% R/A. D/C V/S. COMPLETION OF PROCEDURE APPOINTMENT: POST PAIN 4, DRESSING SITE DRY AND INTACT, IV DISCONTINUED, SITE CLEAR, CATHETER INTACT, GAIT STEADY, TEACHING COMPLETED, PATIENT ACKNOWLEDGES UNDERSTANDING YES, PATIENT DISCHARGED AT 1610 PRE PROCEDURE DIAGNOSIS LUMBAR DISC DISORDER WITH RADICULOPATHY POST PROCEDURE DIAGNOSIS LUMBAR DISC DISORDER WITH RADICULOPATHY PROCEDURE LUMBAR EPIDURAL STEROID INJECTION UNDER FLUOROSCOPIC GUIDANCE SURGEON DR. MOSHE ERICKSON HOT WATER HEATER INSTALLER NONE ANESTHESIA LOCAL PRE PROCEDURE NOTE THE PATIENT HAS A HISTORY OF CHRONIC LOW BACK PAIN. I EVALUATED THE PATIENT AND REVIEWED THE CHART. I WENT OVER THE RISKS, ALTERNATIVES, AND BENEFITS ASSOCIATED WITH THIS PROCEDURE. THE PATIENT WOULD LIKE TO PROCEED AND GIVE CONSENT TO PERFORMED THE PROCEDURE. THE PATIENT DENIES UNEXPLAINABLE WEIGHT LOSS, FEVER, CHILLS, OR NEW CHANGES IN URINARY OR BOWEL CONTROL. THE PATIENT IS COVID-19 NEGATIVE DESCRIPTION OF PROCEDURE THE PATIENT WAS BROUGHT TO THE PROCEDURE ROOM AND PLACED IN THE PRONE POSITION. THE LUMBOSACRAL AREA WAS CLEANED WITH BETADINE SOLUTION AND DRAPED ASEPTICALLY. THE PROCEDURE WAS DONE UNDER STERILE CONDITIONS. A TIMEOUT WAS PERFORMED WHERE THE SITE OF THE PROCEDURE WERE CHECKED AND CONFIRMED WITH EVERYONE IN THE ROOM. UNDER FLUOROSCOPIC GUIDANCE, THE TARGET POINT WAS SELECTED AT THE INTERLAMINAR LEVEL OF L4-L5. I CONFIRMED AGAIN WITH EVERYONE IN THE ROOM THE SITE OF THE TARGET AT 1537. LIDOCAINE WAS USED TO NUMB THE SKIN AND THE SUBCUTANEOUS TISSUE BELOW IT. EPIDURAL TUOHY NEEDLE, 17-GAUGE, WAS ADVANCED UNDER FLUOROSCOPIC GUIDANCE AND FOLLOWING PATIENT FEEDBACK UNTIL THE EPIDURAL SPACE WAS REACHED 11 CM DEEP INTO THE SKIN BY THE LOSS OF RESISTANCE TECHNIQUE. ISOVUE-M DYE 30%, 0.25 ML, WAS INJECTED SHOWING ADEQUATE SPREAD OF THE DYE. THEN, A SOLUTION OF 3 ML OF NORMAL SALINE WITH DEPO-MEDROL 80 MG WAS INJECTED SLOWLY FOLLOWING PATIENT FEEDBACK. THE MEDICATIONS WERE VERIFIED WITH THE NURSE. THERE WAS NO EVIDENCE OF BLOOD, PARESTHESIA OR CEREBROSPINAL FLUID DURING THE PROCEDURE. THE PATIENT WAS SENT TO THE RECOVERY ROOM. THE PATIENT WAS MOVING THE EXTREMITIES AND DOING WELL. THERE WERE NO COMPLICATIONS DURING THE PROCEDURE. ESTIMATED BLOOD LOSS WAS LESS THAN 5 ML. FLUOROSCOPY TIME WAS 8 SECONDS POST PROCEDURE NOTE THE PATIENT WILL BE SEEN IN A FOLLOW UP IN THE NEXT FEW WEEKS. I AM LOOKING FOR LONG LASTING RELIEF FOR THE PATIENT WITH THIS INTERVENTION. INSTRUCTIONS WERE GIVEN, QUESTIONS WERE ANSWERED, AND THE PATIENT EXPRESSED UNDERSTANDING AND AGREES WITH THE PLAN. I, HARPREET ATKINS, DOCUMENTED THE ABOVE INFORMATION ACTING A SCRIBE FOR DR. ERICKSON. I HAVE REVIEWED THE ABOVE DOCUMENT, WRITTEN BY HARPREET ATKINS, BANQUET COORDINATOR, AND I VERIFY THAT IT IS ACCURATE PROCEDURE CODES 10513 LUMBAR/SACRAL W/ IMAGING DISPOSITION & COMMUNICATION FOLLOW UP FOLLOW UP WITH REPAIRER (REASON: POST LUMBAR EPIDURAL STEROID INJECTION) ELECTRONICALLY SIGNED BY MOSHE ERICKSON MD, MD ON 11/29/2020 AT 05:07 PM EST DISCLAIMER : THIS IS A VISIT SUMMARY EXTRACTED FROM THE [employer] CHART. IT IS NOT A COPY OF THE [employer] PROGRESS NOTE. ROSALINE
== END ==
LOC: M PAIN 13:30
PROVIDERS: ATTEND Anesthesiology
DX: M51.16 Intervertebral disc disorders with radiculopathy, lumbar region (principal); E11.9 Type 2 diabetes mellitus without complications; Z96.641 Presence of right artificial hip joint; Z88.8 Allergy status to other drugs, medicaments and biological substances; Z91.09 Other allergy status, other than to drugs and biological substances; E66.01 Morbid (severe) obesity due to excess calories; Z68.43 Body mass index [BMI] 50.0-59.9, adult; Z79.4 Long term (current) use of insulin; Z79.899 Other long term (current) drug therapy
CPT/HCPCS: 62323; J1030; Q9967

== ENCOUNTER → 2020-12-07 | Outpatient (CLI) | payer OTHER ==
[~2020-12-07] MED LIST changes: -HYDR-3490 PO; +HYDR25TAB PO; -ISOVUE-M 300 61% 15ML VIAL As Ordered ONE; -LIDOCAINE 1% SDV 30ML VIAL As Ordered ONE; -LISI10TA22 PO; +LISI10TA4 PO; -NORCO, ANEXSIA 5/325MG TABLET (HYDROcodone/ACETAMINOPHEN) As Ordered ONE; -methylPREDNISolone SUSP 40MG/ML 1ML VIAL (DEPO MEDROL) As Ordered ONE
[2020-12-07 11:42] LABS: APPEARANCE, URINE CLEAR (CLEAR); BACTERIA, URINE AUTO NEGATIVE (NEGATIVE); BILIRUBIN, URINE AUTO NEGATIVE (NEGATIVE); BLOOD, URINE BLOOD NEGATIVE (NEGATIVE); COLOR, URINE YELLOW (YELLOW); GLUCOSE, URINE (UA) AUTO NEGATIVE (NEGATIVE); KETONE, URINE AUTO NEGATIVE (NEGATIVE); LEUKOCYTE ESTERASE, URINE AUTO TRACE (NEGATIVE); MUCUS, URINE SMALL (NEGATIVE); NITRITE, URINE AUTO NEGATIVE (NEGATIVE); PROTEIN, URINE AUTO NEGATIVE (NEGATIVE); RBC, URINE AUTO 0 /HPF (0-3); SPECIFIC GRAVITY URINE AUTO 1.017 (1.002-1.035); SQUAMOUS EPITHELIAL CELL UR AU 1 /HPF (0-6); UROBILINOGEN, URINE AUTO 0.2 mg/dL (0.0-2.0); WBC, URINE AUTO 1 /HPF (0-3)
== END ==
LOC: M LAB 10:57
PROVIDERS: ATTEND Urology
DX: R35.0 Frequency of micturition (principal)

== ENCOUNTER → 2021-01-15 | Outpatient (CLI) | payer OTHER ==
[~2021-01-15] MED LIST changes: +HYDR-3490 PO; -HYDR25TAB PO; +LISI10TA22 PO; -LISI10TA4 PO
--- NOTE | 2021-01-17 03:19 | ECWPNPC ---
PATIENT NAME: DARIUS RUDOLPH : 1955 GENDER: FEMALE VISIT DATE: 01/15/2021 DISCHARGE DATE: 01/15/21 1238 VISIT LOCKED DATE TIME: PHYSICIAN: MATT PENA PHYSICIAN PAGER NO: ACTIVE RESOURCE: MATT PENA REASON FOR APPOINTMENT 1. POST LUMBAR EPIDURAL STEROID INJECTION HISTORY OF PRESENT ILLNESS GENERAL: - 65-YEAR-OLD FEMALE IN FOR POST LUMBAR EPIDURAL STEROID INJECTION FOLLOW-UP. SHE RATES HER PAIN PREPROCEDURE AT A 9.5 OUT OF 10 AND POSTPROCEDURE AT A 4 OUT OF 10. SHE FURTHER STATES THE PROCEDURE CONTINUES TO HELP HER TODAY. FALL RISK SCREENING: SCREENING 1 FALL REPORTED IN THE LAST YEAR WITHOUT INJURY. PAIN SCREENING: PATIENT HAS A COMPLAINT OF ACUTE OR CHRONIC PAIN :YES LOCATION OF PAIN:LOW BACK, RIGHT HIP INTENSITY OF PAIN (SCALE OF 1 TO 10):6 WHAT DOES YOUR PAIN FEEL LIKE:ACHING DURATION:CONTINOUS, CONSTANT PAIN IS INCREASED BY:ACTIVITIES PAIN IS DECREASED BY:USE OF PAIN MEDICATIONS NURSING NOTE: -. PAIN CENTER INTAKE QUESTIONS: DO YOU HAVE A HISTORY OF MRSA? :NO DO YOU TAKE A BLOOD THINNERS? :NO DO YOU HAVE ANY BLEEDING DISORDERS? :NO ANY NEW NUMBNESS OR WEAKNESS IN YOUR LEGS OR ARMS? :NO ANY PACEMAKER,DEFIBRILLATOR, OR DORSAL COLUMN STIMULATOR? :NO DO YOU HAVE ANY RASHES OR OPEN SORES? :YES FROM INSULIN INJECTIONS ARE YOU ALLERGIC TO IV DYE? :NO ARE YOU DIABETIC? :YES ANY NEW PROBLEMS WITH YOUR MEDICATIONS? :YES ALLERGIC TO INSULIN HAVE YOU RECEIVED A VACCINE IN THE PAST 30 DAYS? :YES IF SO WHAT VACCINE AND WHEN? #1 COVID VACCINE 12/24/20 DO YOU PLAN TO RECEIVE A VACCINE IN THE NEXT 21 DAYS? :YES IF SO WHAT VACCINE AND WHEN? # 2 COVID VACCINE 01/17/21 DO YOU NEED ANY PRESCRIPTION? :NO DO YOU TAKE ANY IMMUNOSUPPRESSIVE MEDICATIONS? :NO DO YOU HAVE ANY KIDNEY OR LIVER DISEASE? :NO IS THERE A CHANCE YOU COULD BE ? :NO ARE YOU BREAST FEEDING? :NO CURRENT MEDICATIONS TAKING DYMISTA NASAL SPRAY AZELASTINE HYRDOCHLORIDE 137MCG & FLUTICASONE PROPIONATE 50MCG( SOLUTION ONE SPRAY PER NOSTRIL NASALLLY TWICE DAILY TAKING TROSPIUM CHLORIDE 20 MG TABLET TABLET AT BEDTIME ON AN EMPTY STOMACH ORALLY TWICE DAILY, NOTES: UP TO 60 MG TAKING CALCIUM 600 MG TABLET 1 TABLET WITH MEALS ORALLY TWICE A DAY TAKING MULTIVITAMINS - TABLET 1 TABLET ORALLY ONCE A DAY TAKING BLOOD GLUCOSE METER - KIT 1 METER DX:E11.9 6-8 TIMES DAILY PER SPECIALIST, NOTES: PLEASE DISPENSE ONE TOUCH VERIO FLEX MONITOR TAKING AMILORIDE HCL 5 MG TABLET 1 TABLET ORALLY ONCE A DAY, NOTES: 11/26 2199 TAKING BLOOD GLUCOSE TEST - STRIP 1 STRIP IN VITRO 6-8 TIMES DAILY DX:E11.9 TAKING VICTOZA 18 MG/3ML SOLUTION PEN-INJECTOR 0.6 MG FOR 1 WEEK, THEN 1.2MG FOR 1 WEEK, THEN 1.8MG DAILY SUBCUTANEOUS DAILY, NOTES: 11/26 09 TAKING ATORVASTATIN CALCIUM 80 MG TABLET 1 TABLET ORALLY ONCE A DAY TAKING BUMETANIDE 1 MG TABLET DIRECTED ORALLY TAKING BASAGLAR KWIKPEN 100 UNIT/ML SOLUTION PEN-INJECTOR DIRECTED SUBCUTANEOUS , NOTES: PRN TAKING GABAPENTIN 800 MG TABLET 1 CAPSULE ORALLY TID TAKING COLESEVELAM HCL 625 MG TABLET 3 TABLETS WITH MEALS ORALLY TWICE A DAY TAKING ACETAMINOPHEN 500 MG TABLET 2 TABLETS ORALLY EVERY 6 HOURS NEEDED (MDD 3000 MG), NOTES: 11/27 929 TAKING COLESEVELAM HCL 625 MG TABLET 3 TABLETS WITH MEALS ORALLY TWICE A DAY TAKING SUCRALFATE 1 GM TABLET 1 TABLET ON AN EMPTY STOMACH ORALLY DAILY TAKING LISINOPRIL 10 MG TABLET 1 TABLET ORALLY ONCE A DAY, NOTES: 11/26 2199 TAKING FAMOTIDINE 20 MG TABLET 1 TABLET ORALLY TWICE DAILY NEEDED TAKING AZELASTINE HCL 0.1 % SOLUTION 1 PUFF IN EACH NOSTRIL NASALLY TWICE A DAY TAKING COLESTIPOL HCL 1 GM TABLET 2 TABLETS ORALLY ONCE A DAY TAKING LOPERAMIDE HCL 2 MG TABLET TAKE 2 TABLETS PO, THEN 1 TABLET AFTER EACH LOOSE STOOL; MDD OF 16 ORALLY FOUR TIMES A DAY TAKING CHOLESTYRAMINE LIGHT 4 GM/DOSE POWDER 1 SCOOP ORALLY ONCE A DAY TAKING INSULIN ASPART 100 UNIT/ML SOLUTION DIRECTED SUBCUTANEOUS TAKING LOPERAMIDE HCL 2 MG CAPSULE 1 CAPSULE NEEDED ORALLY FOUR TIMES A DAY NOT-TAKING APIDRA 100 UNIT/ML SOLUTION UNITS PER SLIDING SCALE MDD:100 INJECTION FOR AN INSULIN PUMP, NOTES: OFF AT 1330 11/27 NOT-TAKING [facility] FLUTICASONE PROPIONATE 50 MCG/ACT SUSPENSION 1 SPRAY IN EACH NOSTRIL NASALLY ONCE A DAY NOT-TAKING AMOXICILLIN 500 MG CAPSULE 4 CAPSULE ORALLY PRIOR TO DENTAL PROCEDURE, NOTES: TAKES WHEN SHE HAS DENTAL PROCEDURE NOT-TAKING AZELASTINE HCL 0.15 % SOLUTION 2 SPRAYS IN EACH NOSTRIL NASALLY ONCE A DAY NOT-TAKING AZELASTINE HCL 0.15 % SOLUTION 2 SPRAYS IN EACH NOSTRIL NASALLY ONCE A DAY MEDICATION LIST REVIEWED AND RECONCILED WITH THE PATIENT PAST MEDICAL HISTORY LOWER EXTREMITY SWELLING INSULIN DEPENDENT DIABETES MELLITUS HYPERTENSION DYSLIPIDEMIA ENDOMETRIAL CANCER 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, CERVIX REMOVE, WELL OVARIES 2012) ALLERGIES ADHESIVE TAPE: REDNESS, ITCHING, SORES - ALLERGY HUMALOG: ITCHY LUMPS AT INJECTION SITE - ALLERGY NOVOLOG: ITCHY LUMPS AT INJECTION SITE - ALLERGY ADMELOG: ITCHY LUMPS AT INJECTION SITE - ALLERGY SOCIAL HISTORY GENERAL: TOBACCO USE ARE YOU A:NONSMOKER NEVER SMOKER LATEX QUESTIONNAIRE LATEX ALLERGY : HAVE YOU EVER DEVELOPED ANY TYPE OF REACTION AFTER HANDLING LATEX PRODUCTS SUCH RUBBER GLOVES, CONDOMS, DIAPHRAGMS, BALLOONS, SOCKS, OR UNDERWEAR?NO LATEX ALLERGY : HAVE YOU EVER DEVELOPED ANY TYPE OF REACTION DURING OR AFTER DENTAL APPOINTMENT, VAGINAL/RECTAL EXAMINATION, SURGICAL PROCEDURE, OR ANY OTHER EXPOSURE?NO DATE ASKED : 11/24/2020 LATEX RISK : HAVE YOU EVER HAD ANY DIFFICULTY BREATHING OR HIVES AFTER EATING OR HANDLING ANY FRUITS, OR VEGETABLES; SUCH KIWI, BANANAS, STONE FRUITS, OR CHESTNUTSNO LATEX RISK : DO YOU HAVE A PREVIOUS PERSONAL HISTORY OF MORE THAN NINE SURGERIES, SPINA BIFIDA, OR REPEATED CATHERIZATIONS? NO LATEX RISK : ARE YOU FREQUENTLY EXPOSED TO LATEX PRODUCTS IN YOUR OCCUPATION?NO BMI CARE GOAL FOLLOW-UP ABOVE NORMAL BMI FOLLOW-UPDIETARY NEEDS EDUCATION ALCOHOL SCREENING DID YOU HAVE A DRINK CONTAINING ALCOHOL IN THE PAST YEAR?NO POINTS0 INTERPRETATIONNEGATIVE RECREATIONAL DRUG USE DRUG USE?NO CAFFEINE CAFFEINE USE?YES 1 DIET [place] PER WEEK SEXUAL HX HAD SEX IN THE LAST 12 MONTHS (VAGINAL, ORAL, OR ANAL)?NO LMP:HYSTERECTOMY HAVE YOU EVER HAD AN STD?NO HIV / HEP-C SCREENING HIV TEST OFFERED TO PATIENT:YES DATE OFFERED:06/24/2017 TEST ACCEPTED:NO HEP-C TEST OFFERED TO PATIENT:YES DATE OFFERED:06/24/2017 REASON:PATIENT DECLINED TEST ACCEPTED:NO REASON:PATIENT DECLINED SPIRITISM [id number] PRESYBETERIAN NO ISLAM BELIEFS THAT WOULD IMPACT HEALTH CARE. LANGUAGE LANGUAGES SPOKEN:[place] EDUCATION LEVEL OF EDUCATION:FINISHED COLLEGE LEARNING BARRIERS / SPECIAL NEEDS CHANGE FROM LAST VISIT?NO BARRIERS TO LEARNING?NO HEARING IMPAIRED?YES L EAR WORSE, VISION IMPAIRED?YES COGNITIVELY IMPAIRED?NO :HEARING AIDES RACHEL. 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 DIET: REGULAR. EXERCISE: NO REGULAR EXERCISE. MARITAL STATUS: .. OTHERS AT HOME: NONE. - HAS THE PATIENT BEEN EDUCATED REGARDING HIS/HER PLAN OF CARE?YES HAS THE PATIENT BEEN EDUCATED REGARDING PAIN, THE RISK FOR PAIN, THE IMPORTANCE OF EFFECTIVE PAIN MANAGEMENT, AND THE PAIN ASSESSMENT PROCESS?YES ADVANCE DIRECTIVE ADVANCE DIRECTIVE DISCUSSED WITH PATIENT:YES PT DOES NOT HAVE A HCP, PT DECLINED PAPERWORK REVIEW OF SYSTEMS CONSTITUTIONAL: ANY RECENT FEVER NO . CHILLS NO . WEIGHT CHANGE OF UNKNOWN REASONS NO . GASTROENTEROLOGY: NEW UNEXPLAINABLE CHANGES IN BOWEL CONTROL NO . CONSTIPATION NO . GENITOURINARY: ANY NEW CHANGE IN BLADDER CONTROL? NO . NEUROLOGY: NEW ONSET DIZZINESS OR NEUROLOGICAL CHANGES NOT MENTIONED NO . NEW NUMBNESS OR PAIN PATTERNS NOT MENTIONED AND PERTINENT TO TODAY'S VISIT NO . CARDIOLOGY: NEW CHEST PRESSURE NO . PATIENT DENIES NO . RESPIRATORY: UNEXPLAINABLE COUGH NO . NEW SHORTNESS OF BREATH NO . VITAL SIGNS WT 325 LBS, HT 64 1/2, BMI 54.92 INDEX, BP 132/66 MM HG, HR 90 /MIN, RR 18 /MIN, TEMP 96.1 F, OXYGEN SAT % 95%, SAFE IN ENV? (Y/N) Y, NA INITIALS AW 1146, REVIEWED BY: EM. EXAMINATION GENERAL EXAMINATION: GENERALNO ACUTE DISTRESS, WELL NOURISHED AND HYDRATED. PSYCHAPPROPRIATE MOOD AND AFFECT . LUNGS:CLEAR TO AUSCULTATION BILATERALLY, NO WHEEZES, RHONCHI, RALES. HEART:NO MURMURS, REGULAR RATE AND RHYTHM. ASSESSMENTS OTHER CHRONIC PAIN - G89.29 (PRIMARY) INTERVERTEBRAL DISC DISORDERS WITH RADICULOPATHY, LUMBAR REGION - M51.16 TREATMENT OTHER CHRONIC PAIN PAIN PROCEDURE LOGDATE OF [id number]/18/2021PROCEDURE:LUMBAR EPIDURAL STEROID INJECTIONAMOUNT OF PRE SEDATEPRESEDATE: NORCO 5MG/325MGRESULT:. 9.5 OUT OF 10 POST 4 OUT OF 10. CONTINUES TO HELP TODAY. INTERVERTEBRAL DISC DISORDERS WITH RADICULOPATHY, LUMBAR REGION NOTES: 65-YEAR-OLD FEMALE IN FOR POST EPIDURAL STEROID INJECTION FOLLOW-UP. GIVEN PRESENTING SYMPTOMS RECOMMEND FOLLOW-UP IN ONE MONTH. PATIENT HAS EXPRESSED UNDERSTANDING OF AND WAS IN AGREEMENT WITH TREATMENT PLAN. GIVEN TIME TO ASK QUESTIONS AND EXPRESS CONCERNS. PROCEDURE CODES FA211 ESTABILISHED PATIENT [facility] CHARGE DISPOSITION & COMMUNICATION FOLLOW UP 4 WEEKS (REASON: LOW BACK PAIN) ELECTRONICALLY SIGNED BY ADÁN LAM ON 01/16/2021 AT 01:03 PM EST DISCLAIMER : THIS IS A VISIT SUMMARY EXTRACTED FROM THE [employer] CHART. IT IS NOT A COPY OF THE [employer] PROGRESS NOTE. ROSALINE
== END ==
LOC: M PAIN 11:30
PROVIDERS: ATTEND Family Medicine
DX: M51.16 Intervertebral disc disorders with radiculopathy, lumbar region (principal); G89.29 Other chronic pain; E11.9 Type 2 diabetes mellitus without complications; Z88.8 Allergy status to other drugs, medicaments and biological substances; Z91.09 Other allergy status, other than to drugs and biological substances; E66.01 Morbid (severe) obesity due to excess calories; Z68.43 Body mass index [BMI] 50.0-59.9, adult; Z79.4 Long term (current) use of insulin; Z79.899 Other long term (current) drug therapy

== ENCOUNTER → 2021-02-12 | Outpatient (CLI) | payer OTHER ==
--- NOTE | 2021-02-14 09:52 | ECWPNPC ---
PATIENT NAME: DARIUS RUDOLPH : 1955 GENDER: FEMALE VISIT DATE: 02/12/2021 DISCHARGE DATE: 02/12/21 1528 VISIT LOCKED DATE TIME: PHYSICIAN: MATT PENA PHYSICIAN PAGER NO: ACTIVE RESOURCE: MATT PENA REASON FOR APPOINTMENT 1. LOW BACK PAIN HISTORY OF PRESENT ILLNESS GENERAL: - 65-YEAR-OLD FEMALE IN FOR CHRONIC PAIN FOLLOW-UP. SHE RATES HER PAIN AT A 3-9 OUT OF 10 CURRENTLY AND DESCRIBES IT ACHING AND A VISELIKE PRESSURE. SHE FEELS HER MEDICATIONS ARE HELPFUL AND DENIES MED SIDE EFFECTS AT THIS TIME. FALL RISK SCREENING: SCREENING FEW FALLS REPORTED IN THE LAST YEAR WITHOUT INJURY. . PAIN SCREENING: PATIENT HAS A COMPLAINT OF ACUTE OR CHRONIC PAIN :YES LOCATION OF PAIN:LOW BACK INTENSITY OF PAIN (SCALE OF 1 TO 10):3 9 WHEN STANDING AND 5 WHEN WALKING. SITTING IS A 3. WHAT DOES YOUR PAIN FEEL LIKE:ACHING, OTHER FEELS LIKE A VICE ON LEFT SIDE. PRESSURE. DURATION:CONTINOUS PAIN IS INCREASED BY:ACTIVITIES, PROLONGED STANDING PAIN IS DECREASED BY:USE OF PAIN MEDICATIONS, SITTING INJECTION HELPED WITH SHOOTING PAIN AND ELECTRIC SHOCKS IN RIGHT LEG. NURSING NOTE: -. PAIN CENTER INTAKE QUESTIONS: DO YOU HAVE A HISTORY OF MRSA? :NO DO YOU TAKE A BLOOD THINNERS? :NO DO YOU HAVE ANY BLEEDING DISORDERS? :NO ANY NEW NUMBNESS OR WEAKNESS IN YOUR LEGS OR ARMS? :NO ANY PACEMAKER,DEFIBRILLATOR, OR DORSAL COLUMN STIMULATOR? :NO DO YOU HAVE ANY RASHES OR OPEN SORES? :NO ARE YOU ALLERGIC TO IV DYE? :NO ARE YOU DIABETIC? :YES ANY NEW PROBLEMS WITH YOUR MEDICATIONS? :NO HAVE YOU RECEIVED A VACCINE IN THE PAST 30 DAYS? :YES IF SO WHAT VACCINE AND WHEN? SECOND COVID VACCINATION ON 01/17/2021 DO YOU PLAN TO RECEIVE A VACCINE IN THE NEXT 21 DAYS? :NO DO YOU NEED ANY PRESCRIPTION? :NO DO YOU TAKE ANY IMMUNOSUPPRESSIVE MEDICATIONS? :NO DO YOU HAVE ANY KIDNEY OR LIVER DISEASE? :NO IS THERE A CHANCE YOU COULD BE ? :NO ARE YOU BREAST FEEDING? :NO CURRENT MEDICATIONS TAKING DYMISTA NASAL SPRAY AZELASTINE HYRDOCHLORIDE 137MCG & FLUTICASONE PROPIONATE 50MCG( SOLUTION ONE SPRAY PER NOSTRIL NASALLLY TWICE DAILY TAKING TROSPIUM CHLORIDE 20 MG TABLET TABLET AT BEDTIME ON AN EMPTY STOMACH ORALLY TWICE DAILY, NOTES: UP TO 60 MG TAKING CALCIUM 600 MG TABLET 1 TABLET WITH MEALS ORALLY TWICE A DAY TAKING MULTIVITAMINS - TABLET 1 TABLET ORALLY ONCE A DAY TAKING BLOOD GLUCOSE METER - KIT 1 METER DX:E11.9 6-8 TIMES DAILY PER SPECIALIST, NOTES: PLEASE DISPENSE ONE TOUCH VERIO FLEX MONITOR TAKING AMILORIDE HCL 5 MG TABLET 1 TABLET ORALLY ONCE A DAY, NOTES: 11/26 2199 TAKING BLOOD GLUCOSE TEST - STRIP 1 STRIP IN VITRO 6-8 TIMES DAILY DX:E11.9 TAKING VICTOZA 18 MG/3ML SOLUTION PEN-INJECTOR 0.6 MG FOR 1 WEEK, THEN 1.2MG FOR 1 WEEK, THEN 1.8MG DAILY SUBCUTANEOUS DAILY, NOTES: 11/26 899 TAKING ATORVASTATIN CALCIUM 80 MG TABLET 1 TABLET ORALLY ONCE A DAY TAKING BUMETANIDE 1 MG TABLET DIRECTED ORALLY TAKING BASAGLAR KWIKPEN 100 UNIT/ML SOLUTION PEN-INJECTOR DIRECTED SUBCUTANEOUS , NOTES: 60U QAM TAKING ACETAMINOPHEN 500 MG TABLET 2 TABLETS ORALLY EVERY 6 HOURS NEEDED (MDD 3000 MG), NOTES: 11/27 929 TAKING LISINOPRIL 10 MG TABLET 1 TABLET ORALLY ONCE A DAY, NOTES: 11/26 2199 TAKING FAMOTIDINE 20 MG TABLET 1 TABLET ORALLY TWICE DAILY NEEDED TAKING CHOLESTYRAMINE LIGHT 4 GM/DOSE POWDER 1 SCOOP ORALLY ONCE A DAY TAKING LOPERAMIDE HCL 2 MG CAPSULE 1 CAPSULE NEEDED ORALLY FOUR TIMES A DAY TAKING SUCRALFATE 1 GM TABLET 1 TABLET ON AN EMPTY STOMACH ORALLY DAILY TAKING LOPERAMIDE HCL 2 MG TABLET TAKE 2 TABLETS PO, THEN 1 TABLET AFTER EACH LOOSE STOOL; MDD OF 16 ORALLY FOUR TIMES A DAY TAKING GABAPENTIN 800 MG TABLET 1 CAPSULE ORALLY TID TAKING AZELASTINE HCL 0.1 % SOLUTION 1 PUFF IN EACH NOSTRIL NASALLY TWICE A DAY TAKING AMOXICILLIN 500 MG CAPSULE 4 CAPSULE ORALLY MORNING OF DENTAL PROCEDURE TAKING APIDRA 100 UNIT/ML SOLUTION DIRECTED INJECTION TAKING MAY HAVE _ INSULIN PUMP _ NOT-TAKING COLESTIPOL HCL 1 GM TABLET 2 TABLETS ORALLY ONCE A DAY NOT-TAKING INSULIN ASPART 100 UNIT/ML SOLUTION DIRECTED SUBCUTANEOUS UNKNOWN COLESEVELAM HCL 625 MG TABLET 3 TABLETS WITH MEALS ORALLY TWICE A DAY UNKNOWN COLESEVELAM HCL 625 MG TABLET 3 TABLETS WITH MEALS ORALLY TWICE A DAY UNKNOWN COLESTIPOL HCL 1 GM TABLET 2 TABLETS ORALLY ONCE A DAY MEDICATION LIST REVIEWED AND RECONCILED WITH THE PATIENT PAST MEDICAL HISTORY LOWER EXTREMITY SWELLING INSULIN DEPENDENT DIABETES MELLITUS HYPERTENSION DYSLIPIDEMIA ENDOMETRIAL CANCER 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, CERVIX REMOVE, WELL OVARIES 2012) ALLERGIES ADHESIVE TAPE: REDNESS, ITCHING, SORES - ALLERGY HUMALOG: ITCHY LUMPS AT INJECTION SITE - ALLERGY NOVOLOG: ITCHY LUMPS AT INJECTION SITE - ALLERGY ADMELOG: ITCHY LUMPS AT INJECTION SITE - ALLERGY SOCIAL HISTORY GENERAL: TOBACCO USE ARE YOU A:NONSMOKER NEVER SMOKER LATEX QUESTIONNAIRE LATEX ALLERGY : HAVE YOU EVER DEVELOPED ANY TYPE OF REACTION AFTER HANDLING LATEX PRODUCTS SUCH RUBBER GLOVES, CONDOMS, DIAPHRAGMS, BALLOONS, SOCKS, OR UNDERWEAR?NO LATEX ALLERGY : HAVE YOU EVER DEVELOPED ANY TYPE OF REACTION DURING OR AFTER DENTAL APPOINTMENT, VAGINAL/RECTAL EXAMINATION, SURGICAL PROCEDURE, OR ANY OTHER EXPOSURE?NO LATEX RISK : HAVE YOU EVER HAD ANY DIFFICULTY BREATHING OR HIVES AFTER EATING OR HANDLING ANY FRUITS, OR VEGETABLES; SUCH KIWI, BANANAS, STONE FRUITS, OR CHESTNUTSNO LATEX RISK : DO YOU HAVE A PREVIOUS PERSONAL HISTORY OF MORE THAN NINE SURGERIES, SPINA BIFIDA, OR REPEATED CATHERIZATIONS? NO LATEX RISK : ARE YOU FREQUENTLY EXPOSED TO LATEX PRODUCTS IN YOUR OCCUPATION?NO DATE ASKED : 02/12/2021 ALCOHOL USE: NO. BMI CARE GOAL FOLLOW-UP ABOVE NORMAL BMI FOLLOW-UPDIETARY NEEDS EDUCATION ALCOHOL SCREENING DID YOU HAVE A DRINK CONTAINING ALCOHOL IN THE PAST YEAR?NO POINTS0 INTERPRETATIONNEGATIVE RECREATIONAL DRUG USE DRUG USE?NO CAFFEINE CAFFEINE USE?YES 1 DIET [place]W PER WEEK SEXUAL HX HAD SEX IN THE LAST 12 MONTHS (VAGINAL, ORAL, OR ANAL)?NO LMP:HYSTERECTOMY HAVE YOU EVER HAD AN STD?NO HIV / HEP-C SCREENING HIV TEST OFFERED TO PATIENT:YES DATE OFFERED:06/24/2017 TEST ACCEPTED:NO HEP-C TEST OFFERED TO PATIENT:YES DATE OFFERED:06/24/2017 REASON:PATIENT DECLINED TEST ACCEPTED:NO REASON:PATIENT DECLINED MORMONISM [id number] PENTECOSTAL NO PENTECOSTALISM BELIEFS THAT WOULD IMPACT HEALTH CARE. LANGUAGE LANGUAGES SPOKEN:FIJIAN EDUCATION LEVEL OF EDUCATION:FINISHED COLLEGE LEARNING BARRIERS / SPECIAL NEEDS CHANGE FROM LAST VISIT?NO BARRIERS TO LEARNING?NO HEARING IMPAIRED?YES L EAR WORSE, :HEARING AIDES RACHEL. 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 DIET: REGULAR. EXERCISE: NO REGULAR EXERCISE. MARITAL STATUS: .. OTHERS AT HOME: NONE. - HAS THE PATIENT BEEN EDUCATED REGARDING HIS/HER PLAN OF CARE?YES HAS THE PATIENT BEEN EDUCATED REGARDING PAIN, THE RISK FOR PAIN, THE IMPORTANCE OF EFFECTIVE PAIN MANAGEMENT, AND THE PAIN ASSESSMENT PROCESS?YES ADVANCE DIRECTIVE ADVANCE DIRECTIVE DISCUSSED WITH PATIENT:YES PT DOES NOT HAVE A HCP, PT DECLINED PAPERWORK REVIEW OF SYSTEMS CONSTITUTIONAL: ANY RECENT FEVER NO . CHILLS NO . WEIGHT CHANGE OF UNKNOWN REASONS NO . GASTROENTEROLOGY: NEW UNEXPLAINABLE CHANGES IN BOWEL CONTROL NO . CONSTIPATION NO . GENITOURINARY: ANY NEW CHANGE IN BLADDER CONTROL? NO . NEUROLOGY: NEW ONSET DIZZINESS OR NEUROLOGICAL CHANGES NOT MENTIONED NO . NEW NUMBNESS OR PAIN PATTERNS NOT MENTIONED AND PERTINENT TO TODAY'S VISIT NO . CARDIOLOGY: NEW CHEST PRESSURE NO . PATIENT DENIES NO . RESPIRATORY: UNEXPLAINABLE COUGH NO . NEW SHORTNESS OF BREATH NO . VITAL SIGNS WT 327.6 LBS, HT 64 1/2, BMI 55.36 INDEX, BP 130/60 MM HG, HR 82 /MIN, RR 18 /MIN, TEMP 98.3 F, OXYGEN SAT % 95%, SAFE IN ENV? (Y/N) YES, REVIEWED BY: BANDAR STONE MA. EXAMINATION GENERAL EXAMINATION: GENERALNO ACUTE DISTRESS, WELL NOURISHED AND HYDRATED. PSYCHAPPROPRIATE MOOD AND AFFECT . LUNGS:CLEAR TO AUSCULTATION BILATERALLY, NO WHEEZES, RHONCHI, RALES. HEART:NO MURMURS, REGULAR RATE AND RHYTHM. ASSESSMENTS INTERVERTEBRAL DISC DISORDERS WITH RADICULOPATHY, LUMBAR REGION - M51.16 (PRIMARY) TREATMENT INTERVERTEBRAL DISC DISORDERS WITH RADICULOPATHY, LUMBAR REGION [facility] MRI SPINE, L.S. WITHOUT [id number] NOTES: 65-YEAR-OLD FEMALE IN FOR CHRONIC PAIN FOLLOW-UP. GIVEN PRESENTING SYMPTOMS RECOMMEND GETTING AN MRI OF THE LUMBAR SPINE WITH FOLLOW-UP POST IMAGING. PATIENT HAS EXPRESSED UNDERSTANDING OF AND WAS IN AGREEMENT WITH TREATMENT PLAN. GIVEN TIME TO ASK QUESTIONS AND EXPRESS CONCERNS. PROCEDURE CODES FA211 ESTABILISHED PATIENT [facility] CHARGE DISPOSITION & COMMUNICATION FOLLOW UP POST IMAGING (REASON: MRI LUMBAR SPINE WITHOUT CONTRAST ) ELECTRONICALLY SIGNED BY ADÁN LAM ON 02/13/2021 AT 10:27 AM EDT DISCLAIMER : THIS IS A VISIT SUMMARY EXTRACTED FROM THE [employer] CHART. IT IS NOT A COPY OF THE [employer] PROGRESS NOTE. ROSALINE
== END ==
LOC: M PAIN 14:30
PROVIDERS: ATTEND Family Medicine
DX: M51.16 Intervertebral disc disorders with radiculopathy, lumbar region (principal); G89.29 Other chronic pain; E11.9 Type 2 diabetes mellitus without complications; Z88.8 Allergy status to other drugs, medicaments and biological substances; Z91.09 Other allergy status, other than to drugs and biological substances; E66.01 Morbid (severe) obesity due to excess calories; Z68.43 Body mass index [BMI] 50.0-59.9, adult; Z79.4 Long term (current) use of insulin; Z79.899 Other long term (current) drug therapy

== ENCOUNTER → 2021-03-05 | Outpatient (CLI) | payer OTHER ==
[2021-03-05 12:21] LABS: APPEARANCE, URINE HAZY (CLEAR); BACTERIA, URINE AUTO 1+ (NEGATIVE); BILIRUBIN, URINE AUTO NEGATIVE (NEGATIVE); BLOOD, URINE BLOOD NEGATIVE (NEGATIVE); COLOR, URINE YELLOW (YELLOW); GLUCOSE, URINE (UA) AUTO NEGATIVE (NEGATIVE); KETONE, URINE AUTO NEGATIVE (NEGATIVE); LEUKOCYTE ESTERASE, URINE AUTO 1+ (NEGATIVE); MUCUS, URINE SMALL (NEGATIVE); NITRITE, URINE AUTO NEGATIVE (NEGATIVE); PROTEIN, URINE AUTO NEGATIVE (NEGATIVE); RBC, URINE AUTO 1 /HPF (0-3); SPECIFIC GRAVITY URINE AUTO 1.025 (1.002-1.035); SQUAMOUS EPITHELIAL CELL UR AU 6 /HPF (0-6); UROBILINOGEN, URINE AUTO 0.2 mg/dL (0.0-2.0); WBC, URINE AUTO 4 /HPF (0-3)
== END ==
LOC: M LAB 11:36
PROVIDERS: ATTEND Urology
DX: R35.0 Frequency of micturition (principal)

== ENCOUNTER → 2021-03-13 | Outpatient (CLI) | payer OTHER ==
--- NOTE | 2021-03-14 07:58 | REP ---
INDICATION: DDD LUMBAR W/ RADICULOPATHY. COMPARISON: Comparison MRI study of the lumbar spine 03 Apr 2018.. TECHNIQUE: Sagittal and axial T1 and T2-weighted scans are acquired in the usual fashion with and without fat saturation. Sequences include spin echo, turbo spin-echo, and STIR imaging sequences. FINDINGS: Lumbar vertebral body heights are preserved. Cortical and medullary bone signal intensity is normal except for some minimal reactive marrow changes at L4-5. There is no evidence of spondylolysis or spondylolisthesis. The tip of the conus medullaris is normal in position and appearance at L1. No extra vertebral abnormality is appreciated. Normal caliber aorta is seen. Axial and sagittal images taken at L1-2 and L2-3 show no evidence of disc protrusion, significant bulging, spinal stenosis, or foraminal encroachment. At L3-4, there is minimal degenerative disc space narrowing unchanged. There is mild left and right foraminal disc bulging. No nerve root compression is appreciated. No spinal stenosis seen. At L4-L5, there is mild central canal stenosis again noted due to mild diffuse disc bulging in combination with ligamentum flavum and facet hypertrophy. There is disc space height loss mild in degree unchanged. The midline AP dimension of the thecal sac at the L4-5 level is 9 mm. No neural foraminal encroachment is seen. Findings are unchanged. At L5-S1, there is bilateral facet hypertrophy. No disc protrusion, spinal stenosis, or foraminal narrowing is seen. IMPRESSION: Mild central canal stenosis is again noted at L4-5 due to diffuse disc bulging, facet and ligamentum flavum hypertrophy. No significant change from the 2018 study. Mild degenerative disc changes and facet hypertrophy are noted at L3-4 and L5-S1 respectively, also unchanged. <Electronically signed by Rigoberto Prakash > 03/14/21 [id number]
== END ==
LOC: M RAD 16:15
PROVIDERS: ATTEND Family Medicine
DX: M51.16 Intervertebral disc disorders with radiculopathy, lumbar region (principal)

== ENCOUNTER → 2021-03-13 | Outpatient (CLI) | payer OTHER ==
[2021-03-13 18:34] LABS: HEMOGLOBIN A1c 5.9 %
[2021-03-13 18:43] LABS: ALT/SGPT 38 U/L (12-78); BILIRUBIN,TOTAL 0.5 MG/DL (0.2-1.0); BLOOD UREA NITROGEN 18 MG/DL (7-18); CALCIUM LEVEL 9.7 MG/DL (8.8-10.2); CARBON DIOXIDE LEVEL 29 MEQ/L (21-32); CHLORIDE LEVEL 104 MEQ/L (98-107); CHOLESTEROL LEVEL 113 MG/DL (<200); CHOLESTEROL RISK RATIO 2.627 (<5); CREATININE FOR GFR 0.74 MG/DL (0.55-1.30); GLOMERULAR FILTRATION RATE > 60.0 (>45); GLUCOSE, FASTING 95 MG/DL (70-100); HDL CHOLESTEROL 43 MG/DL (>40); LDL CHOLESTEROL 9 MG/DL (<100); NON-HDL-C 70 MG/DL; POTASSIUM SERUM 4.9 MEQ/L (3.5-5.1); SODIUM LEVEL 138 MEQ/L (136-145); TOTAL PROTEIN 7.1 GM/DL (6.4-8.2); TRIGLYCERIDES LEVEL 306 MG/DL (<150)
[2021-03-13 18:45] LABS: TOTAL 25(OH) VITAMIN D 32.8 NG/ML (30.0-100.0)
[2021-03-13 18:47] LABS: MALB URINE SIEMENS 15.5 MG/L; MAU/CREAT RATIO 9.3 MCG/MG (0.0-30.0)
== END ==
LOC: M LAB 16:25
PROVIDERS: ATTEND Internal Medicine Endocrinology, Diabetes & Metabolism
DX: E66.01 Morbid (severe) obesity due to excess calories (principal)

== ENCOUNTER → 2021-04-02 | Outpatient (CLI) | payer OTHER ==
--- NOTE | 2021-04-03 23:59 | ECWPNPC ---
PATIENT NAME: DARIUS RUDOLPH : 1955 GENDER: FEMALE VISIT DATE: 04/02/2021 DISCHARGE DATE: 04/02/21 1503 VISIT LOCKED DATE TIME: PHYSICIAN: MATT PENA PHYSICIAN PAGER NO: ACTIVE RESOURCE: MATT PENA REASON FOR APPOINTMENT 1. REVIEW MRI LUMBAR SPINE WITHOUT CONTRAST HISTORY OF PRESENT ILLNESS PAIN CENTER INTAKE QUESTIONS: DO YOU HAVE A HISTORY OF MRSA? :NO DO YOU TAKE A BLOOD THINNERS? :NO DO YOU HAVE ANY BLEEDING DISORDERS? :NO ANY NEW NUMBNESS OR WEAKNESS IN YOUR LEGS OR ARMS? :NO ANY PACEMAKER,DEFIBRILLATOR, OR DORSAL COLUMN STIMULATOR? :NO DO YOU HAVE ANY RASHES OR OPEN SORES? :NO ARE YOU ALLERGIC TO IV DYE? :NO ARE YOU DIABETIC? :YES ANY NEW PROBLEMS WITH YOUR MEDICATIONS? :NO HAVE YOU RECEIVED A VACCINE IN THE PAST 30 DAYS? :NO DO YOU PLAN TO RECEIVE A VACCINE IN THE NEXT 21 DAYS? :NO DO YOU NEED ANY PRESCRIPTION? :NO DO YOU TAKE ANY IMMUNOSUPPRESSIVE MEDICATIONS? :NO DO YOU HAVE ANY KIDNEY OR LIVER DISEASE? :NO IS THERE A CHANCE YOU COULD BE ? :NO ARE YOU BREAST FEEDING? :NO GENERAL: HPI 65-YEAR-OLD FEMALE IN FOR CHRONIC PAIN FOLLOW-UP. SHE IS EXPERIENCING LOW BACK PAIN WITH RADICULAR SYMPTOMS. SHE RATES HER PAIN CURRENTLY AT AN 8 OUT OF 10. SHE FEELS THE GABAPENTIN IS HELPFUL. SHE HAD AN MRI RECENTLY WHICH WILL BE REVIEWED WITH PATIENT TODAY.. -. FALL RISK SCREENING: SCREENING : NO FALLS REPORTED IN THE LAST YEAR. PAIN SCREENING: PATIENT HAS A COMPLAINT OF ACUTE OR CHRONIC PAIN :YES LOCATION OF PAIN:LOW BACK, LEFT HIP BOTHERED MORE FROM COUGHING INTENSITY OF PAIN (SCALE OF 1 TO 10):8 WHAT DOES YOUR PAIN FEEL LIKE:ACHING, CONTINOUS, SHARP LOW BACK PAIN DOES NOT GO AWAY, TROUBLE STANDING DURATION:CONTINOUS, CONSTANT PAIN IS INCREASED BY:PROLONGED STANDING PAIN IS DECREASED BY:SITTING NURSING NOTE: -. CURRENT MEDICATIONS TAKING DYMISTA NASAL SPRAY AZELASTINE HYRDOCHLORIDE 137MCG & FLUTICASONE PROPIONATE 50MCG( SOLUTION ONE SPRAY PER NOSTRIL NASALLLY TWICE DAILY TAKING TROSPIUM CHLORIDE 20 MG TABLET TABLET AT BEDTIME ON AN EMPTY STOMACH ORALLY TWICE DAILY, NOTES: UP TO 60 MG TAKING MULTIVITAMINS - TABLET 1 TABLET ORALLY ONCE A DAY TAKING BLOOD GLUCOSE METER - KIT 1 METER DX:E11.9 6-8 TIMES DAILY PER SPECIALIST, NOTES: PLEASE DISPENSE ONE TOUCH VERIO FLEX MONITOR TAKING AMILORIDE HCL 5 MG TABLET 1 TABLET ORALLY ONCE A DAY, NOTES: 11/26 2199 TAKING BLOOD GLUCOSE TEST - STRIP 1 STRIP IN VITRO 6-8 TIMES DAILY DX:E11.9 TAKING VICTOZA 18 MG/3ML SOLUTION PEN-INJECTOR 0.6 MG FOR 1 WEEK, THEN 1.2MG FOR 1 WEEK, THEN 1.8MG DAILY SUBCUTANEOUS DAILY, NOTES: 11/26 899 TAKING ATORVASTATIN CALCIUM 80 MG TABLET 1 TABLET ORALLY ONCE A DAY TAKING BUMETANIDE 1 MG TABLET DIRECTED ORALLY TAKING BASAGLAR KWIKPEN 100 UNIT/ML SOLUTION PEN-INJECTOR DIRECTED SUBCUTANEOUS , NOTES: 60U QAM TAKING ACETAMINOPHEN 500 MG TABLET 2 TABLETS ORALLY EVERY 6 HOURS NEEDED (MDD 3000 MG), NOTES: 11/27 929 TAKING LISINOPRIL 10 MG TABLET 1 TABLET ORALLY ONCE A DAY, NOTES: 11/26 2199 TAKING FAMOTIDINE 20 MG TABLET 1 TABLET ORALLY TWICE DAILY NEEDED TAKING CHOLESTYRAMINE LIGHT 4 GM/DOSE POWDER 1 SCOOP ORALLY ONCE A DAY TAKING GABAPENTIN 800 MG TABLET 1 CAPSULE ORALLY TID TAKING AZELASTINE HCL 0.1 % SOLUTION 1 PUFF IN EACH NOSTRIL NASALLY TWICE A DAY TAKING APIDRA 100 UNIT/ML SOLUTION DIRECTED INJECTION TAKING LOPERAMIDE HCL 2 MG TABLET TAKE 2 TABLETS PO, THEN 1 TABLET AFTER EACH LOOSE STOOL; MDD OF 16 ORALLY FOUR TIMES A DAY TAKING FENOFIBRATE 134 MG CAPSULE 1 CAPSULE WITH A MEAL ORALLY ONCE A DAY NOT-TAKING CALCIUM 600 MG TABLET 1 TABLET WITH MEALS ORALLY TWICE A DAY NOT-TAKING LOPERAMIDE HCL 2 MG CAPSULE 1 CAPSULE NEEDED ORALLY FOUR TIMES A DAY NOT-TAKING AMOXICILLIN 500 MG CAPSULE 4 CAPSULE ORALLY MORNING OF DENTAL PROCEDURE, NOTES: JUST DURING DENTIST VISITS NOT-TAKING MAY HAVE _ INSULIN PUMP _, NOTES: DOESN'T USE DIRECTED NOT-TAKING SUCRALFATE 1 GM TABLET 1 TABLET ON AN EMPTY STOMACH ORALLY DAILY NOT-TAKING COLESTIPOL HCL 1 GM TABLET 2 TABLETS ORALLY ONCE A DAY NOT-TAKING INSULIN ASPART 100 UNIT/ML SOLUTION DIRECTED SUBCUTANEOUS UNKNOWN COLESEVELAM HCL 625 MG TABLET 3 TABLETS WITH MEALS ORALLY TWICE A DAY UNKNOWN COLESEVELAM HCL 625 MG TABLET 3 TABLETS WITH MEALS ORALLY TWICE A DAY UNKNOWN COLESTIPOL HCL 1 GM TABLET 2 TABLETS ORALLY ONCE A DAY MEDICATION LIST REVIEWED AND RECONCILED WITH THE PATIENT PAST MEDICAL HISTORY LOWER EXTREMITY SWELLING INSULIN DEPENDENT DIABETES MELLITUS HYPERTENSION DYSLIPIDEMIA ENDOMETRIAL CANCER 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, CERVIX REMOVE, WELL OVARIES 2012) ALLERGIES ADHESIVE TAPE: REDNESS, ITCHING, SORES - ALLERGY HUMALOG: ITCHY LUMPS AT INJECTION SITE - ALLERGY NOVOLOG: ITCHY LUMPS AT INJECTION SITE - ALLERGY ADMELOG: ITCHY LUMPS AT INJECTION SITE - ALLERGY SURGICAL HISTORY TOTAL HIP REPLACEMENT R HYSTERECTOMY, TOTAL WITH BSO 2012 CARPAL TUNNEL RELEASE BILATERAL CHOLECYSTECTOMY 06/2017 COLONOSCOPY & ENDOSCOPY 10/28/17 SPINAL PAIN INJECTION 05/2018 FAMILY HISTORY FATHER: , DAD AT AGE OF 70'S FROM LUNG CA ENLARGED PROSTATE MOTHER: 62 YRS, COPD SIBLINGS: ALIVE, 1 SISTER HAS ISSUES WITH HYPOTENSION 2 SISTER(S) - HEALTHY. SOCIAL HISTORY GENERAL: TOBACCO USE ARE YOU A:NONSMOKER NEVER SMOKER LATEX QUESTIONNAIRE LATEX ALLERGY : HAVE YOU EVER DEVELOPED ANY TYPE OF REACTION AFTER HANDLING LATEX PRODUCTS SUCH RUBBER GLOVES, CONDOMS, DIAPHRAGMS, BALLOONS, SOCKS, OR UNDERWEAR?NO LATEX ALLERGY : HAVE YOU EVER DEVELOPED ANY TYPE OF REACTION DURING OR AFTER DENTAL APPOINTMENT, VAGINAL/RECTAL EXAMINATION, SURGICAL PROCEDURE, OR ANY OTHER EXPOSURE?NO LATEX RISK : HAVE YOU EVER HAD ANY DIFFICULTY BREATHING OR HIVES AFTER EATING OR HANDLING ANY FRUITS, OR VEGETABLES; SUCH KIWI, BANANAS, STONE FRUITS, OR CHESTNUTSNO LATEX RISK : DO YOU HAVE A PREVIOUS PERSONAL HISTORY OF MORE THAN NINE SURGERIES, SPINA BIFIDA, OR REPEATED CATHERIZATIONS? NO LATEX RISK : ARE YOU FREQUENTLY EXPOSED TO LATEX PRODUCTS IN YOUR OCCUPATION?NO DATE ASKED : 04/02/2021 ALCOHOL USE: NO. BMI CARE GOAL FOLLOW-UP ABOVE NORMAL BMI FOLLOW-UPDIETARY NEEDS EDUCATION ALCOHOL SCREENING DID YOU HAVE A DRINK CONTAINING ALCOHOL IN THE PAST YEAR?NO POINTS0 INTERPRETATIONNEGATIVE RECREATIONAL DRUG USE DRUG USE?NO CAFFEINE CAFFEINE USE?YES 1 DIET [place] PER WEEK SEXUAL HX HAD SEX IN THE LAST 12 MONTHS (VAGINAL, ORAL, OR ANAL)?NO LMP:HYSTERECTOMY HAVE YOU EVER HAD AN STD?NO HIV / HEP-C SCREENING HIV TEST OFFERED TO PATIENT:YES DATE OFFERED:06/24/2017 TEST ACCEPTED:NO HEP-C TEST OFFERED TO PATIENT:YES DATE OFFERED:06/24/2017 REASON:PATIENT DECLINED TEST ACCEPTED:NO REASON:PATIENT DECLINED JEWISH [id number] TAOIST NO EPISCOPAL BELIEFS THAT WOULD IMPACT HEALTH CARE. LANGUAGE LANGUAGES SPOKEN:DUTCH EDUCATION LEVEL OF EDUCATION:FINISHED COLLEGE LEARNING BARRIERS / SPECIAL NEEDS CHANGE FROM LAST VISIT?NO BARRIERS TO LEARNING?NO HEARING IMPAIRED?YES L EAR WORSE, VISION IMPAIRED?YES COGNITIVELY IMPAIRED?NO :HEARING AIDES RACHEL. DOES NOT HAVE CORRECTLY :CORRECTIVE LENSES READINESS TO LEARN?YES LEARNING PREFERENCES?NO LEARNING CAPABILITIES PRESENT?YES EMOTIONAL BARRIERS?NO SPECIAL DEVICES?YES SERVICE DOG STILL WORKER HELPER NEEDED?NO DOMESTIC VIOLENCE DO YOU FEEL SAFE IN YOUR ENVIRONMENT?YES OCCUPATION: [employer]. DIET: REGULAR. EXERCISE: NO REGULAR EXERCISE. MARITAL STATUS: .. OTHERS AT HOME: NONE. - HAS THE PATIENT BEEN EDUCATED REGARDING HIS/HER PLAN OF CARE?YES HAS THE PATIENT BEEN EDUCATED REGARDING PAIN, THE RISK FOR PAIN, THE IMPORTANCE OF EFFECTIVE PAIN MANAGEMENT, AND THE PAIN ASSESSMENT PROCESS?YES ADVANCE DIRECTIVE ADVANCE DIRECTIVE DISCUSSED WITH PATIENT:YES PT DOES NOT HAVE A HCP, PT DECLINED PAPERWORK DRUG/ALCOHOL: AUDIT TOTAL SCORE:0 INTERPRETATION:ALCOHOL EDUCATION DRUG AND ALCOHOL TOTAL SCORE:0 INTERPRETATION:NO PROBLEMS REPORTED HOSPITALIZATION/MAJOR DIAGNOSTIC PROCEDURE ACUTE CHOLECYSTITIS 06/10/2017 ABOVE SURGERIES REVIEW OF SYSTEMS CONSTITUTIONAL: ANY RECENT FEVER NO . CHILLS NO . WEIGHT CHANGE OF UNKNOWN REASONS NO . GASTROENTEROLOGY: NEW UNEXPLAINABLE CHANGES IN BOWEL CONTROL NO . CONSTIPATION NO . GENITOURINARY: ANY NEW CHANGE IN BLADDER CONTROL? NO . NEUROLOGY: NEW ONSET DIZZINESS OR NEUROLOGICAL CHANGES NOT MENTIONED NO . NEW NUMBNESS OR PAIN PATTERNS NOT MENTIONED AND PERTINENT TO TODAY'S VISIT NO . CARDIOLOGY: NEW CHEST PRESSURE NO . PATIENT DENIES NO . RESPIRATORY: UNEXPLAINABLE COUGH NO . NEW SHORTNESS OF BREATH NO . VITAL SIGNS WT 320.8 LBS, HT 64 1/2, BMI 54.21 INDEX, BP 153/71 MM HG, HR 77 /MIN, RR 18 /MIN, TEMP 97.6 F, OXYGEN SAT % 98%, NA INITIALS AW 1414. EXAMINATION GENERAL EXAMINATION: GENERALNO ACUTE DISTRESS, WELL NOURISHED AND HYDRATED. PSYCHAPPROPRIATE MOOD AND AFFECT . LUNGS:CLEAR TO AUSCULTATION BILATERALLY, NO WHEEZES, RHONCHI, RALES. HEART:NO MURMURS, REGULAR RATE AND RHYTHM. BACK:POSITIVE MODIFIED SLR RIGHT SIDE. MUSCULOSKELETAL:NOTABLE WEAKNESS OF THE RIGHT LOWER EXTREMITY, LEFT LOWER EXTREMITY WITHIN NORMAL LIMITS. ASSESSMENTS INTERVERTEBRAL DISC DISORDER WITH RADICULOPATHY OF LUMBOSACRAL REGION - M51.17 (PRIMARY) TREATMENT INTERVERTEBRAL DISC DISORDER WITH RADICULOPATHY OF LUMBOSACRAL REGION MEDICATION: NORCO TABLET 5MG/325MG ORALLY (HYDROCODONE/ACETAMINOPHEN) (ORDERED FOR 04/09/2021) NOTES: 65-YEAR-OLD FEMALE IN FOR CHRONIC PAIN FOLLOW-UP. GIVEN PRESENTING SYMPTOMS AND RESULTS OF PHYSICAL EXAMINATION RECOMMENDED LUMBAR EPIDURAL STEROID INJECTIONS WITH POST PROCEDURAL FOLLOW-UP.FURTHER RECOMMEND PATIENT DISCUSS POTENTIAL DCS TRIAL WITH THE [facility] AND SHE WAS AMENABLE TO THIS. PATIENT HAS EXPRESSED UNDERSTANDING OF AND WAS IN AGREEMENT WITH TREATMENT PLAN. GIVEN TIME TO ASK QUESTIONS AND EXPRESS CONCERNS. PRINTED AND REVIEWED PRE PROCEDURE INFORMATION, PATIENT VERBALIZED UNDERSTANDING RASHEED PRADO . DISPOSITION & COMMUNICATION FOLLOW UP POST PROCEDURE (REASON: LUMBAR EPIDURAL STEROID INJECTION ) ELECTRONICALLY SIGNED BY ADÁN LAM ON 04/03/2021 AT 01:07 PM EDT DISCLAIMER : THIS IS A VISIT SUMMARY EXTRACTED FROM THE [employer] CHART. IT IS NOT A COPY OF THE [employer] PROGRESS NOTE. ROSALINE
== END ==
LOC: M PAIN 14:15
PROVIDERS: ATTEND Family Medicine
DX: M51.17 Intervertebral disc disorders with radiculopathy, lumbosacral region (principal); G89.29 Other chronic pain; E11.9 Type 2 diabetes mellitus without complications; Z96.641 Presence of right artificial hip joint; Z88.8 Allergy status to other drugs, medicaments and biological substances; Z91.09 Other allergy status, other than to drugs and biological substances; E66.01 Morbid (severe) obesity due to excess calories; Z68.43 Body mass index [BMI] 50.0-59.9, adult; Z79.4 Long term (current) use of insulin; Z79.899 Other long term (current) drug therapy

== ENCOUNTER → 2021-04-23 | Outpatient (REF) | payer OTHER ==
[2021-04-23 13:57] LABS: APPEARANCE, URINE TURBID (CLEAR); BACTERIA, URINE AUTO 3+ (NEGATIVE); BILIRUBIN, URINE AUTO NEGATIVE (NEGATIVE); BLOOD, URINE BLOOD NEGATIVE (NEGATIVE); COLOR, URINE AMBER (YELLOW); GLUCOSE, URINE (UA) AUTO NEGATIVE (NEGATIVE); KETONE, URINE AUTO NEGATIVE (NEGATIVE); LEUKOCYTE ESTERASE, URINE AUTO 3+ (NEGATIVE); MUCUS, URINE SMALL (NEGATIVE); NITRITE, URINE AUTO POSITIVE (NEGATIVE); PROTEIN, URINE AUTO 3+ mg/dL (NEGATIVE); RBC, URINE AUTO 16 /HPF (0-3); SPECIFIC GRAVITY URINE AUTO 1.022 (1.002-1.035); SQUAMOUS EPITHELIAL CELL UR AU 7 /HPF (0-6); UROBILINOGEN, URINE AUTO 0.2 mg/dL (0.0-2.0); WBC, URINE AUTO TNTC /HPF (0-3)
== END ==
LOC: M LAB REF 13:23
PROVIDERS: ATTEND Urology
DX: R35.0 Frequency of micturition (principal)

== ENCOUNTER → 2021-05-03 | Outpatient (CLI) | payer OTHER | LOC: M LABSMTC 11:14 | PROVIDERS: ATTEND Anesthesiology | DX: Z20.822 Contact with and (suspected) exposure to COVID-19 (principal) ==

== ENCOUNTER → 2021-05-08 | Outpatient (CLI) | payer OTHER ==
[~2021-05-08] MED LIST changes: +ISOVUE-M 300 61% 15ML VIAL As Ordered ONE; +LIDOCAINE 1% SDV 30ML VIAL As Ordered ONE; +NORCO, ANEXSIA 5/325MG TABLET (HYDROcodone/ACETAMINOPHEN) As Ordered ONE; +methylPREDNISolone SUSP 40MG/ML 1ML VIAL (DEPO MEDROL) As Ordered ONE
--- NOTE | 2021-05-08 13:23 | REP ---
INDICATION: LESI. COMPARISON: None. TECHNIQUE: Two views. 17.2 seconds of fluoroscopy time is reported. FINDINGS: A sequence of 2 last image hold fluoroscopically obtained spot radiograph(s) of the lumbar spine document(s) needle position(s) and contrast injection associated with injection procedure. IMPRESSION: Procedural imaging. <Electronically signed by Rigoberto Prakash > 05/08/21 [id number]
--- NOTE | 2021-05-10 02:51 | ECWPNPC ---
PATIENT NAME: DARIUS RUDOLPH : 1955 GENDER: FEMALE VISIT DATE: 05/08/2021 DISCHARGE DATE: 05/08/21 1336 VISIT LOCKED DATE TIME: PHYSICIAN: MOSHE ERICKSON MD PHYSICIAN PAGER NO: ACTIVE RESOURCE: MOSHE ERICKSON MD REASON FOR APPOINTMENT 1. LUMBAR EPIDURAL STEROID INJECTION HISTORY OF PRESENT ILLNESS GENERAL: -. FALL RISK SCREENING: SCREENING : ONE FALL REPORTED IN THE LAST YEAR WITHOUT INJURY. PAIN SCREENING: PATIENT HAS A COMPLAINT OF ACUTE OR CHRONIC PAIN :YES LOCATION OF PAIN:LOW BACK, RIGHT HIP INTENSITY OF PAIN (SCALE OF 1 TO 10):7 WHAT DOES YOUR PAIN FEEL LIKE:ACHING, SHARP, SHOOTING DURATION:CONTINOUS, CONSTANT PAIN IS INCREASED BY:ACTIVITIES PAIN IS DECREASED BY:USE OF PAIN MEDICATIONS NURSING NOTE: -. PAIN CENTER INTAKE QUESTIONS: DO YOU HAVE A HISTORY OF MRSA? :NO DO YOU TAKE A BLOOD THINNERS? :NO DO YOU HAVE ANY BLEEDING DISORDERS? :NO ANY NEW NUMBNESS OR WEAKNESS IN YOUR LEGS OR ARMS? :YES WORSENED NEUROPATHY ANY PACEMAKER,DEFIBRILLATOR, OR DORSAL COLUMN STIMULATOR? :NO DO YOU HAVE ANY RASHES OR OPEN SORES? :NO ARE YOU ALLERGIC TO IV DYE? :NO ARE YOU DIABETIC? :YES ANY NEW PROBLEMS WITH YOUR MEDICATIONS? :NO HAVE YOU RECEIVED A VACCINE IN THE PAST 30 DAYS? :YES IF SO WHAT VACCINE AND WHEN? PNEUMONIA VACCINE LAST WEEK DO YOU PLAN TO RECEIVE A VACCINE IN THE NEXT 21 DAYS? :NO DO YOU TAKE ANY IMMUNOSUPPRESSIVE MEDICATIONS? :NO ANY HISTORY OF SEIZURES? :NO ANY HISTORY OF CARDIAC ISSUES OR EVENTS? :NO DO YOU HAVE ANY KIDNEY OR LIVER DISEASE? :NO DO YOU HAVE SLEEP APNEA? :NO ANY RECENT HEAD INJURY? :NO DO YOU HAVE ANY NEW INFECTIONS? :NO IS THERE A CHANCE YOU COULD BE ? :NO ARE YOU BREAST FEEDING? :NO WHEN DID YOU LAST EAT? : -05/07/21@1930 WHEN DID YOU LAST DRINK? : -05/08/21 @0900 [facility] WHAT DID YOU LAST DRINK? : - NAME OF PERSON DRIVING YOU HOME? : GINO DO YOU HAVE ANY OTHER QUESTIONS OR CONCERNS? : -DENIES CURRENT MEDICATIONS TAKING DYMISTA NASAL SPRAY AZELASTINE HYRDOCHLORIDE 137MCG & FLUTICASONE PROPIONATE 50MCG( SOLUTION ONE SPRAY PER NOSTRIL NASALLLY TWICE DAILY TAKING TROSPIUM CHLORIDE 20 MG TABLET TABLET AT BEDTIME ON AN EMPTY STOMACH ORALLY TWICE DAILY, NOTES: UP TO 60 MG TAKING MULTIVITAMINS - TABLET 1 TABLET ORALLY ONCE A DAY TAKING BLOOD GLUCOSE METER - KIT 1 METER DX:E11.9 6-8 TIMES DAILY PER SPECIALIST, NOTES: PLEASE DISPENSE ONE TOUCH VERIO FLEX MONITOR TAKING AMILORIDE HCL 5 MG TABLET 1 TABLET ORALLY ONCE A DAY TAKING BLOOD GLUCOSE TEST - STRIP 1 STRIP IN VITRO 6-8 TIMES DAILY DX:E11.9 TAKING VICTOZA 18 MG/3ML SOLUTION PEN-INJECTOR 0.6 MG FOR 1 WEEK, THEN 1.2MG FOR 1 WEEK, THEN 1.8MG DAILY SUBCUTANEOUS DAILY TAKING ATORVASTATIN CALCIUM 80 MG TABLET 1 TABLET ORALLY ONCE A DAY TAKING BUMETANIDE 1 MG TABLET DIRECTED ORALLY TAKING BASAGLAR KWIKPEN 100 UNIT/ML SOLUTION PEN-INJECTOR DIRECTED SUBCUTANEOUS , NOTES: 30U QAM TAKING ACETAMINOPHEN 500 MG TABLET 2 TABLETS ORALLY EVERY 6 HOURS NEEDED (MDD 3000 MG) TAKING LOPERAMIDE HCL 2 MG CAPSULE 1 CAPSULE NEEDED ORALLY FOUR TIMES A DAY TAKING GABAPENTIN 800 MG TABLET 1 CAPSULE ORALLY TID TAKING AZELASTINE HCL 0.1 % SOLUTION 1 PUFF IN EACH NOSTRIL NASALLY TWICE A DAY TAKING APIDRA 100 UNIT/ML SOLUTION DIRECTED INJECTION TAKING MAY HAVE _ INSULIN PUMP _ TAKING CRANBERRY 250 MG CAPSULE ORALLY ONCE A DAY TAKING FENOFIBRATE 134 MG CAPSULE 1 CAPSULE WITH A MEAL ORALLY ONCE A DAY TAKING CINNAMON 500 MG CAPSULE 2 CAPSULES DAILY TAKING LUTEIN-ZEAXANTHIN 20-1 MG CAPSULE ORALLY DAILY TAKING VITAMIN D3 50 MCG (2000 UT) CAPSULE ORALLY ONCE A DAY TAKING LOW-DOSE ASPIRIN 81 MG TABLET 1 TABLET ORALLY ONCE A DAY TAKING CHOLESTYRAMINE LIGHT 4 GM/DOSE POWDER 1 SCOOP ORALLY ONCE A DAY TAKING LISINOPRIL 10 MG TABLET 1 TABLET ORALLY ONCE A DAY TAKING AMOXICILLIN 500 MG CAPSULE 4 CAPSULE ORALLY MORNING OF DENTAL PROCEDURE TAKING VITAMIN B12 TR 2000 MCG TABLET EXTENDED RELEASE 5000 MCG ORALLY ONCE A DAY TAKING FAMOTIDINE 20 MG TABLET 1 TABLET ORALLY TWICE DAILY NEEDED NOT-TAKING LOPERAMIDE HCL 2 MG TABLET TAKE 2 TABLETS PO, THEN 1 TABLET AFTER EACH LOOSE STOOL; MDD OF 16 ORALLY FOUR TIMES A DAY NOT-TAKING BASAGLAR KWIKPEN 35 UNIT SUBCUTANEOUS WHEN NO PUMP MEDICATION LIST REVIEWED AND RECONCILED WITH THE PATIENT PAST MEDICAL HISTORY LOWER EXTREMITY SWELLING INSULIN DEPENDENT DIABETES MELLITUS HYPERTENSION DYSLIPIDEMIA ENDOMETRIAL CANCER 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, CERVIX REMOVE, WELL OVARIES 2013) ALLERGIES ADHESIVE TAPE: REDNESS, ITCHING, SORES - ALLERGY HUMALOG: ITCHY LUMPS AT INJECTION SITE - ALLERGY NOVOLOG: ITCHY LUMPS AT INJECTION SITE - ALLERGY ADMELOG: ITCHY LUMPS AT INJECTION SITE - ALLERGY SOCIAL HISTORY GENERAL: TOBACCO USE ARE YOU A:NONSMOKER NEVER SMOKER LATEX QUESTIONNAIRE LATEX ALLERGY : HAVE YOU EVER DEVELOPED ANY TYPE OF REACTION AFTER HANDLING LATEX PRODUCTS SUCH RUBBER GLOVES, CONDOMS, DIAPHRAGMS, BALLOONS, SOCKS, OR UNDERWEAR?NO LATEX ALLERGY : HAVE YOU EVER DEVELOPED ANY TYPE OF REACTION DURING OR AFTER DENTAL APPOINTMENT, VAGINAL/RECTAL EXAMINATION, SURGICAL PROCEDURE, OR ANY OTHER EXPOSURE?NO DATE ASKED : 04/02/2021 LATEX RISK : HAVE YOU EVER HAD ANY DIFFICULTY BREATHING OR HIVES AFTER EATING OR HANDLING ANY FRUITS, OR VEGETABLES; SUCH KIWI, BANANAS, STONE FRUITS, OR CHESTNUTSNO LATEX RISK : DO YOU HAVE A PREVIOUS PERSONAL HISTORY OF MORE THAN NINE SURGERIES, SPINA BIFIDA, OR REPEATED CATHERIZATIONS? NO LATEX RISK : ARE YOU FREQUENTLY EXPOSED TO LATEX PRODUCTS IN YOUR OCCUPATION?NO ALCOHOL USE: NO. BMI CARE GOAL FOLLOW-UP ABOVE NORMAL BMI FOLLOW-UPDIETARY NEEDS EDUCATION ALCOHOL SCREENING DID YOU HAVE A DRINK CONTAINING ALCOHOL IN THE PAST YEAR?NO POINTS0 INTERPRETATIONNEGATIVE RECREATIONAL DRUG USE DRUG USE?NO CAFFEINE CAFFEINE USE?YES 1 DIET [place] DEW PER WEEK SEXUAL HX HAD SEX IN THE LAST 12 MONTHS (VAGINAL, ORAL, OR ANAL)?NO LMP:HYSTERECTOMY HAVE YOU EVER HAD AN STD?NO HIV / HEP-C SCREENING HIV TEST OFFERED TO PATIENT:YES DATE OFFERED:06/24/2017 TEST ACCEPTED:NO HEP-C TEST OFFERED TO PATIENT:YES DATE OFFERED:06/24/2017 REASON:PATIENT DECLINED TEST ACCEPTED:NO REASON:PATIENT DECLINED [facility] [id number] JEWISH NO CHRISTIANITY BELIEFS THAT WOULD IMPACT HEALTH CARE. LANGUAGE LANGUAGES SPOKEN:[place] EDUCATION LEVEL OF EDUCATION:FINISHED COLLEGE LEARNING BARRIERS / SPECIAL NEEDS CHANGE FROM LAST VISIT?NO BARRIERS TO LEARNING?NO HEARING IMPAIRED?YES L EAR WORSE, VISION IMPAIRED?YES COGNITIVELY IMPAIRED?NO :HEARING AIDES RACHEL. DOES NOT HAVE CORRECTLY :CORRECTIVE LENSES READINESS TO LEARN?YES LEARNING PREFERENCES?NO LEARNING CAPABILITIES PRESENT?YES EMOTIONAL BARRIERS?NO SPECIAL DEVICES?YES SERVICE DOG PHOTOGRAPHER FINISH NEEDED?NO DOMESTIC VIOLENCE DO YOU FEEL SAFE IN YOUR ENVIRONMENT?YES OCCUPATION: [employer]. DIET: REGULAR. EXERCISE: NO REGULAR EXERCISE. MARITAL STATUS: .. OTHERS AT HOME: NONE. - HAS THE PATIENT BEEN EDUCATED REGARDING HIS/HER PLAN OF CARE?YES HAS THE PATIENT BEEN EDUCATED REGARDING PAIN, THE RISK FOR PAIN, THE IMPORTANCE OF EFFECTIVE PAIN MANAGEMENT, AND THE PAIN ASSESSMENT PROCESS?YES ADVANCE DIRECTIVE ADVANCE DIRECTIVE DISCUSSED WITH PATIENT:YES PT DOES NOT HAVE A HCP, PT DECLINED PAPERWORK HOSPITALIZATION/MAJOR DIAGNOSTIC PROCEDURE ACUTE CHOLECYSTITIS 06/10/2017 ABOVE SURGERIES VITAL SIGNS WT 317.4 LBS, HT 64 1/2, BMI 53.63 INDEX, BP 129/71 MM HG, HR 80 /MIN, RR 18 /MIN, TEMP 97.0 F, OXYGEN SAT % 96%, SAFE IN ENV? (Y/N) Y, NA INITIALS AW 1150, REVIEWED BY: AMALIA. EXAMINATION GENERAL: THE PATIENT IS ALERT, ORIENTED TIMES THREE AND COOPERATIVE. LUNGS ARE CLEAR TO AUSCULTATION. HEART SHOWS REGULAR RHYTHM, NO MURMURS AND NO GALLOPS. ASSESSMENTS INTERVERTEBRAL DISC DISORDER WITH RADICULOPATHY OF LUMBOSACRAL REGION - M51.17 (PRIMARY) TREATMENT INTERVERTEBRAL DISC DISORDER WITH RADICULOPATHY OF LUMBOSACRAL REGION [facility] FLUORO GUIDE SPINE INJECTION (PAIN)[id number] COMPLETION OF PROCEDURAL VISIT WHEN MEETS CRITERIA MEDICATION: NORCO TABLET 5MG/325MG ORALLY (HYDROCODONE/ACETAMINOPHEN)HERBIE GRANADOS 05/08/2021 12:15:36 PM > VERIFIED SUSANA LA 05/08/2021 12:16:43 PM > ADMINISTERED OTHERS NOTES: PAT DONE 05/03/21. EM. PROCEDURES PAIN NURSING RECORD PROCEDURE IN ROOM 1245, PHYSICIAN IN ROOM 1305, START 1309, FINISH 1316, PHYSICIAN OUT OF ROOM 1318, OUT OF ROOM 1327, ECG NORMAL SINUS, PATIENT SHIELDED YES, SAFETY STRAP YES, PREP NOEMIDINE Vish STEWART RN, DRESSING TEGADERM DR. ERICKSON LOC: 1. ALERT, ORIENTEDBESSIE TOM 05/08/2021 12:59:27 PM > RESP: 1. REGULAR, NO DYSPNEABESSIE TOM 05/08/2021 12:59:34 PM > COLOR: 1. PINKBESSIE TOM 05/08/2021 12:59:37 PM > SKIN: 1. WARM, DRY SUSANA LA 05/08/2021 12:59:44 PM > POSITION: 1. PRONE SUSANA LA 05/08/2021 12:59:55 PM > VITALS: HR70, 113/56 RFA, 97%, R14 @ 1305 HR 69, 110/56, RFA, 98%, R14 @1316 EXIT VITALS @ 1330 HR 68, 114/56 RFA, 98%, R14 PAIN 0/10 , SUSANA LA RN COMPLETION OF PROCEDURE APPOINTMENT: POST PAIN 0 , DRESSING SITE DRY AND INTACT , IV N/A , GAIT STEADY , TEACHING COMPLETED, PATIENT ACKNOWLEDGES UNDERSTANDING YES , PROCEDURE APPOINTMENT COMPLETED AT 1332 PRE PROCEDURE DIAGNOSIS LUMBAR DISC DISORDER WITH RADICULOPATHY POST PROCEDURE DIAGNOSIS LUMBAR DISC DISORDER WITH RADICULOPATHY PROCEDURE LUMBAR EPIDURAL STEROID INJECTION UNDER FLUOROSCOPIC GUIDANCE SURGEON DR. MOSHE ERICKSON MOLD STAMPER AND REPAIRER NONE ANESTHESIA LOCAL PRE PROCEDURE NOTE THE PATIENT HAS A HISTORY OF CHRONIC LOW BACK PAIN. I EVALUATED THE PATIENT AND REVIEWED THE CHART. I WENT OVER THE RISKS, ALTERNATIVES, AND BENEFITS ASSOCIATED WITH THIS PROCEDURE. THE PATIENT WOULD LIKE TO PROCEED AND GIVE CONSENT TO PERFORMED THE PROCEDURE. THE PATIENT DENIES UNEXPLAINABLE WEIGHT LOSS, FEVER, CHILLS, OR NEW CHANGES IN URINARY OR BOWEL CONTROL. THE PATIENT IS COVID-19 NEGATIVE DESCRIPTION OF PROCEDURE THE PATIENT WAS BROUGHT TO THE PROCEDURE ROOM AND PLACED IN THE PRONE POSITION. THE LUMBOSACRAL AREA WAS CLEANED WITH BETADINE SOLUTION AND DRAPED ASEPTICALLY. THE PROCEDURE WAS DONE UNDER STERILE CONDITIONS. A TIMEOUT WAS PERFORMED WHERE THE CONSENTED SITE WAS VERIFIED WITH EVERYONE IN THE ROOM. UNDER FLUOROSCOPIC GUIDANCE, THE TARGET POINT WAS SELECTED AT THE INTERLAMINAR LEVEL OF L4-L5. I CONFIRMED AGAIN THE SITE OF TARGET. LIDOCAINE WAS USED TO NUMB THE SKIN AND THE SUBCUTANEOUS TISSUE BELOW IT. EPIDURAL TUOHY NEEDLE, 17-GAUGE, WAS ADVANCED UNDER FLUOROSCOPIC GUIDANCE AND FOLLOWING PATIENT FEEDBACK UNTIL THE EPIDURAL SPACE WAS REACHED 9 CM DEEP INTO THE SKIN BY THE LOSS OF RESISTANCE TECHNIQUE. ISOVUE-M DYE 30%, 0.25 ML, WAS INJECTED SHOWING ADEQUATE SPREAD OF THE DYE. THEN, A SOLUTION OF 3 ML OF NORMAL SALINE WITH DEPO-MEDROL 40 MG WAS INJECTED SLOWLY FOLLOWING PATIENT FEEDBACK. THE MEDICATIONS WERE VERIFIED WITH THE NURSE. THERE WAS NO EVIDENCE OF BLOOD, PARESTHESIA OR CEREBROSPINAL FLUID DURING THE PROCEDURE. THE PATIENT WAS SENT TO THE RECOVERY ROOM. THE PATIENT WAS MOVING THE EXTREMITIES AND DOING WELL. THERE WERE NO COMPLICATIONS DURING THE PROCEDURE. ESTIMATED BLOOD LOSS WAS LESS THAN 5 ML. FLUOROSCOPY TIME WAS 17 SECONDS POST PROCEDURE NOTE THE PATIENT STATES THAT THIS INJECTION HELPS WITH HER LEG PAIN. IF SHE HAS PERSISTENT BACK PAIN, WE SHOULD CONSIDER WORKING WITH HER FACETS. THE PATIENT WILL BE SEEN IN A FOLLOW UP IN THE NEXT FEW WEEKS. I AM LOOKING FOR LONG LASTING RELIEF FOR THE PATIENT WITH THIS INTERVENTION. INSTRUCTIONS WERE GIVEN, QUESTIONS WERE ANSWERED, AND THE PATIENT EXPRESSED UNDERSTANDING AND AGREES WITH THE PLAN. I, HARPREET ATKINS, DOCUMENTED THE ABOVE INFORMATION ACTING A SCRIBE FOR DR. ERICKSON. I HAVE REVIEWED THE ABOVE DOCUMENT, WRITTEN BY HARPREET ATKINS, STOREHOUSE CLERK, AND I VERIFY THAT IT IS ACCURATE PROCEDURE CODES 10606 LUMBAR/SACRAL W/ IMAGING DISPOSITION & COMMUNICATION FOLLOW UP FOLLOW UP IN 2 WEEKS (REASON: POST LUMBAR EPIDURAL STEROID INJECTION) ELECTRONICALLY SIGNED BY MOSHE ERICKSON MD, MD ON 05/09/2021 AT 09:24 AM EDT DISCLAIMER : THIS IS A VISIT SUMMARY EXTRACTED FROM THE [employer] CHART. IT IS NOT A COPY OF THE [employer] PROGRESS NOTE. ROSALINE
== END ==
LOC: M PAIN 11:20
PROVIDERS: ATTEND Anesthesiology
DX: M51.17 Intervertebral disc disorders with radiculopathy, lumbosacral region (principal); E11.9 Type 2 diabetes mellitus without complications; Z88.8 Allergy status to other drugs, medicaments and biological substances; Z91.09 Other allergy status, other than to drugs and biological substances; E66.01 Morbid (severe) obesity due to excess calories; Z68.43 Body mass index [BMI] 50.0-59.9, adult; Z79.4 Long term (current) use of insulin; Z79.82 Long term (current) use of aspirin; Z79.899 Other long term (current) drug therapy
CPT/HCPCS: 62323; J1030; Q9967

== ENCOUNTER → 2021-05-22 | Outpatient (CLI) | payer MEDICARE, OTHER ==
[~2021-05-22] MED LIST changes: -ISOVUE-M 300 61% 15ML VIAL As Ordered ONE; -LIDOCAINE 1% SDV 30ML VIAL As Ordered ONE; -NORCO, ANEXSIA 5/325MG TABLET (HYDROcodone/ACETAMINOPHEN) As Ordered ONE; -methylPREDNISolone SUSP 40MG/ML 1ML VIAL (DEPO MEDROL) As Ordered ONE
--- NOTE | 2021-05-24 03:27 | ECWPNPC ---
PATIENT NAME: DARIUS RUDOLPH : 1955 GENDER: FEMALE VISIT DATE: 05/22/2021 DISCHARGE DATE: 05/22/21 1059 VISIT LOCKED DATE TIME: PHYSICIAN: MATT PENA PHYSICIAN PAGER NO: ACTIVE RESOURCE: MATT PENA REASON FOR APPOINTMENT 1. POST LUMBAR EPIDURAL STEROID INJECTION HISTORY OF PRESENT ILLNESS GENERAL: HPI 65-YEAR-OLD FEMALE IN FOR POST LUMBAR EPIDURAL STEROID INJECTION FOLLOW-UP. SHE FEELS HER PROCEDURE WAS SUCCESSFUL OVERALL RATING HER PAIN PREPROCEDURE AT A 7-8 OUT OF 10 AND POST PROCEDURE AT A 3-5 OUT OF 10. FURTHER STATING THE PROCEDURE CONTINUES TO HELP HER TODAY.. -. FALL RISK SCREENING: SCREENING FEW FALLS REPORTED IN THE LAST YEAR WITHOUT INJURY.. PAIN SCREENING: PATIENT HAS A COMPLAINT OF ACUTE OR CHRONIC PAIN :YES LOCATION OF PAIN:LOW BACK INTENSITY OF PAIN (SCALE OF 1 TO 10):3 3-5 AVERAGE WHAT DOES YOUR PAIN FEEL LIKE:ACHING, CONTINOUS, OTHER VICE CLINICAL COUNSELOR DURATION:CONTINOUS, CONSTANT PAIN IS INCREASED BY:ACTIVITIES, PROLONGED STANDING PAIN IS DECREASED BY:USE OF PAIN MEDICATIONS, SITTING NURSING NOTE: -. CURRENT MEDICATIONS TAKING DYMISTA NASAL SPRAY AZELASTINE HYRDOCHLORIDE 137MCG & FLUTICASONE PROPIONATE 50MCG( SOLUTION ONE SPRAY PER NOSTRIL NASALLLY TWICE DAILY TAKING TROSPIUM CHLORIDE 20 MG TABLET TABLET AT BEDTIME ON AN EMPTY STOMACH ORALLY TWICE DAILY, NOTES: UP TO 60 MG TAKING MULTIVITAMINS - TABLET 1 TABLET ORALLY ONCE A DAY TAKING BLOOD GLUCOSE METER - KIT 1 METER DX:E11.9 6-8 TIMES DAILY PER SPECIALIST, NOTES: PLEASE DISPENSE ONE TOUCH VERIO FLEX MONITOR TAKING AMILORIDE HCL 5 MG TABLET 1 TABLET ORALLY ONCE A DAY TAKING BLOOD GLUCOSE TEST - STRIP 1 STRIP IN VITRO 6-8 TIMES DAILY DX:E11.9 TAKING VICTOZA 18 MG/3ML SOLUTION PEN-INJECTOR 0.6 MG FOR 1 WEEK, THEN 1.2MG FOR 1 WEEK, THEN 1.8MG DAILY SUBCUTANEOUS DAILY TAKING ATORVASTATIN CALCIUM 80 MG TABLET 1 TABLET ORALLY ONCE A DAY TAKING BUMETANIDE 1 MG TABLET DIRECTED ORALLY TAKING BASAGLAR KWIKPEN 100 UNIT/ML SOLUTION PEN-INJECTOR DIRECTED SUBCUTANEOUS , NOTES: 30U QAM TAKING ACETAMINOPHEN 500 MG TABLET 2 TABLETS ORALLY EVERY 6 HOURS NEEDED (MDD 3000 MG) TAKING LOPERAMIDE HCL 2 MG CAPSULE 1 CAPSULE NEEDED ORALLY FOUR TIMES A DAY TAKING GABAPENTIN 800 MG TABLET 1 CAPSULE ORALLY TID TAKING AZELASTINE HCL 0.1 % SOLUTION 1 PUFF IN EACH NOSTRIL NASALLY TWICE A DAY TAKING APIDRA 100 UNIT/ML SOLUTION DIRECTED INJECTION TAKING MAY HAVE _ INSULIN PUMP _ TAKING CRANBERRY 250 MG CAPSULE ORALLY ONCE A DAY TAKING FENOFIBRATE 134 MG CAPSULE 1 CAPSULE WITH A MEAL ORALLY ONCE A DAY TAKING CINNAMON 500 MG CAPSULE 2 CAPSULES DAILY TAKING LUTEIN-ZEAXANTHIN 20-1 MG CAPSULE ORALLY DAILY TAKING VITAMIN D3 50 MCG (2000 UT) CAPSULE ORALLY ONCE A DAY TAKING LOW-DOSE ASPIRIN 81 MG TABLET 1 TABLET ORALLY ONCE A DAY TAKING CHOLESTYRAMINE LIGHT 4 GM/DOSE POWDER 1 SCOOP ORALLY ONCE A DAY TAKING LISINOPRIL 10 MG TABLET 1 TABLET ORALLY ONCE A DAY TAKING AMOXICILLIN 500 MG CAPSULE 4 CAPSULE ORALLY MORNING OF DENTAL PROCEDURE TAKING VITAMIN B12 TR 2000 MCG TABLET EXTENDED RELEASE 5000 MCG ORALLY ONCE A DAY TAKING FAMOTIDINE 20 MG TABLET 1 TABLET ORALLY TWICE DAILY NEEDED NOT-TAKING LOPERAMIDE HCL 2 MG TABLET TAKE 2 TABLETS PO, THEN 1 TABLET AFTER EACH LOOSE STOOL; MDD OF 16 ORALLY FOUR TIMES A DAY NOT-TAKING BASAGLAR KWIKPEN 35 UNIT SUBCUTANEOUS WHEN NO PUMP MEDICATION LIST REVIEWED AND RECONCILED WITH THE PATIENT PAST MEDICAL HISTORY LOWER EXTREMITY SWELLING INSULIN DEPENDENT DIABETES MELLITUS HYPERTENSION DYSLIPIDEMIA ENDOMETRIAL CANCER 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, CERVIX REMOVE, WELL OVARIES 2012) ALLERGIES ADHESIVE TAPE: REDNESS, ITCHING, SORES - ALLERGY HUMALOG: ITCHY LUMPS AT INJECTION SITE - ALLERGY NOVOLOG: ITCHY LUMPS AT INJECTION SITE - ALLERGY ADMELOG: ITCHY LUMPS AT INJECTION SITE - ALLERGY SURGICAL HISTORY TOTAL HIP REPLACEMENT R HYSTERECTOMY, TOTAL WITH BSO 2012 CARPAL TUNNEL RELEASE BILATERAL CHOLECYSTECTOMY 06/2017 COLONOSCOPY & ENDOSCOPY 10/28/17 SPINAL PAIN INJECTION 05/2018 SOCIAL HISTORY GENERAL: TOBACCO USE ARE YOU A:NONSMOKER NEVER SMOKER LATEX QUESTIONNAIRE LATEX ALLERGY : HAVE YOU EVER DEVELOPED ANY TYPE OF REACTION AFTER HANDLING LATEX PRODUCTS SUCH RUBBER GLOVES, CONDOMS, DIAPHRAGMS, BALLOONS, SOCKS, OR UNDERWEAR?NO LATEX ALLERGY : HAVE YOU EVER DEVELOPED ANY TYPE OF REACTION DURING OR AFTER DENTAL APPOINTMENT, VAGINAL/RECTAL EXAMINATION, SURGICAL PROCEDURE, OR ANY OTHER EXPOSURE?NO LATEX RISK : HAVE YOU EVER HAD ANY DIFFICULTY BREATHING OR HIVES AFTER EATING OR HANDLING ANY FRUITS, OR VEGETABLES; SUCH KIWI, BANANAS, STONE FRUITS, OR CHESTNUTSNO LATEX RISK : DO YOU HAVE A PREVIOUS PERSONAL HISTORY OF MORE THAN NINE SURGERIES, SPINA BIFIDA, OR REPEATED CATHERIZATIONS? NO LATEX RISK : ARE YOU FREQUENTLY EXPOSED TO LATEX PRODUCTS IN YOUR OCCUPATION?NO DATE ASKED : 05/22/2021 ALCOHOL USE: NO. BMI CARE GOAL FOLLOW-UP ABOVE NORMAL BMI FOLLOW-UPDIETARY NEEDS EDUCATION ALCOHOL SCREENING DID YOU HAVE A DRINK CONTAINING ALCOHOL IN THE PAST YEAR?NO POINTS0 INTERPRETATIONNEGATIVE RECREATIONAL DRUG USE DRUG USE?NO CAFFEINE CAFFEINE USE?YES 1 DIET [place] PER WEEK SEXUAL HX HAD SEX IN THE LAST 12 MONTHS (VAGINAL, ORAL, OR ANAL)?NO LMP:HYSTERECTOMY HAVE YOU EVER HAD AN STD?NO HIV / HEP-C SCREENING HIV TEST OFFERED TO PATIENT:YES DATE OFFERED:06/24/2017 TEST ACCEPTED:NO HEP-C TEST OFFERED TO PATIENT:YES DATE OFFERED:06/24/2017 REASON:PATIENT DECLINED TEST ACCEPTED:NO REASON:PATIENT DECLINED YAZIDISM [id number] CHRISTIANITY NO ZOROASTRIAN BELIEFS THAT WOULD IMPACT HEALTH CARE. LANGUAGE LANGUAGES SPOKEN:BRITISH EDUCATION LEVEL OF EDUCATION:FINISHED COLLEGE LEARNING BARRIERS / SPECIAL NEEDS CHANGE FROM LAST VISIT?NO BARRIERS TO LEARNING?NO HEARING IMPAIRED?YES L EAR WORSE, :HEARING AIDES RACHEL. 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 DIET: REGULAR. EXERCISE: NO REGULAR EXERCISE. MARITAL STATUS: .. OTHERS AT HOME: NONE. - HAS THE PATIENT BEEN EDUCATED REGARDING HIS/HER PLAN OF CARE?YES HAS THE PATIENT BEEN EDUCATED REGARDING PAIN, THE RISK FOR PAIN, THE IMPORTANCE OF EFFECTIVE PAIN MANAGEMENT, AND THE PAIN ASSESSMENT PROCESS?YES ADVANCE DIRECTIVE ADVANCE DIRECTIVE DISCUSSED WITH PATIENT:YES PT DOES NOT HAVE A HCP, PT DECLINED PAPERWORK HOSPITALIZATION/MAJOR DIAGNOSTIC PROCEDURE ACUTE CHOLECYSTITIS 06/10/2017 ABOVE SURGERIES REVIEW OF SYSTEMS CONSTITUTIONAL: ANY RECENT FEVER NO . CHILLS NO . WEIGHT CHANGE OF UNKNOWN REASONS NO . GASTROENTEROLOGY: NEW UNEXPLAINABLE CHANGES IN BOWEL CONTROL NO . CONSTIPATION NO . GENITOURINARY: ANY NEW CHANGE IN BLADDER CONTROL? NO . NEUROLOGY: NEW ONSET DIZZINESS OR NEUROLOGICAL CHANGES NOT MENTIONED NO . NEW NUMBNESS OR PAIN PATTERNS NOT MENTIONED AND PERTINENT TO TODAY'S VISIT NO . CARDIOLOGY: NEW CHEST PRESSURE NO . PATIENT DENIES NO . RESPIRATORY: UNEXPLAINABLE COUGH NO . NEW SHORTNESS OF BREATH NO . VITAL SIGNS WT 303.6 LBS, HT 64 1/2, BMI 51.30 INDEX, BP 126/86 MM HG, HR 83 /MIN, RR 20 /MIN, TEMP 97.6 F, OXYGEN SAT % 97%, SAFE IN ENV? (Y/N) YES, NA INITIALS SC 10:40, REVIEWED BY: BANDAR STONE MA. EXAMINATION GENERAL EXAMINATION: GENERALNO ACUTE DISTRESS, WELL NOURISHED AND HYDRATED. PSYCHAPPROPRIATE MOOD AND AFFECT . LUNGS:CLEAR TO AUSCULTATION BILATERALLY, NO WHEEZES, RHONCHI, RALES. HEART:NO MURMURS, REGULAR RATE AND RHYTHM. ASSESSMENTS OTHER CHRONIC PAIN - G89.29 (PRIMARY) INTERVERTEBRAL DISC DISORDER WITH RADICULOPATHY OF LUMBOSACRAL REGION - M51.17 TREATMENT OTHER CHRONIC PAIN PAIN PROCEDURE LOGDATE OF PROCEDURE05/08/21PROCEDURE:LUMBAR EPIDURAL STEROID INJECTIONAMOUNT OF PRE SEDATENORCO 5/325MGRESULT:PREPROCEDURE 7-8 OUT OF 10 POST PROCEDURE 3-5 OUT OF 10. CONTINUES TO HELP TODAY. INTERVERTEBRAL DISC DISORDER WITH RADICULOPATHY OF LUMBOSACRAL REGION [facility] MRI SPINE,THORACIC WITHOUT [id number] NOTES: 65-YEAR-OLD FEMALE IN FOR POST LUMBAR EPIDURAL STEROID INJECTION FOLLOW-UP. GIVEN PRESENTING SYMPTOMS RECOMMEND FOLLOW-UP IN 2 MONTHS. PATIENT DISCUSSED DCS TRIAL WITH ANA FROM [facility] AND SHE WOULD LIKE TO GO AHEAD WITH DCS TRIAL. PATIENT HAS EXPRESSED UNDERSTANDING OF AND WAS IN AGREEMENT WITH TREATMENT PLAN. GIVEN TIME ASKED QUESTIONS AND EXPRESS CONCERNS. [facility] TO:[facility] REASON:PSYCH CONSULT FOR DCS TRIAL PROCEDURE CODES FA211 ESTABILISHED PATIENT [facility] FACILITY CHARGE DISPOSITION & COMMUNICATION FOLLOW UP 2 MONTHS (REASON: BACK PAIN THORACIC MRI NEEDED FOR DCS TRIAL) ELECTRONICALLY SIGNED BY ADÁN LAM ON 05/23/2021 AT 09:29 AM EDT DISCLAIMER : THIS IS A VISIT SUMMARY EXTRACTED FROM THE [employer] CHART. IT IS NOT A COPY OF THE [employer] PROGRESS NOTE. ROSALINE
== END ==
LOC: M PAIN 10:45
PROVIDERS: ATTEND Family Medicine
DX: M51.17 Intervertebral disc disorders with radiculopathy, lumbosacral region (principal); G89.29 Other chronic pain; E11.9 Type 2 diabetes mellitus without complications; Z96.641 Presence of right artificial hip joint; Z88.8 Allergy status to other drugs, medicaments and biological substances; Z91.09 Other allergy status, other than to drugs and biological substances; E66.01 Morbid (severe) obesity due to excess calories; Z68.43 Body mass index [BMI] 50.0-59.9, adult; Z79.4 Long term (current) use of insulin; Z79.82 Long term (current) use of aspirin; Z79.899 Other long term (current) drug therapy

== ENCOUNTER → 2021-05-28 | Outpatient (REF) | payer MEDICARE | LOC: M SFHCPLAZ 15:51 | PROVIDERS: ATTEND Family Medicine | DX: E78.5 Hyperlipidemia, unspecified (principal) ==

== ENCOUNTER → 2021-05-30 | Outpatient (CLI) | payer MEDICARE | LOC: M PLALAB 11:36 | PROVIDERS: ATTEND Internal Medicine Cardiovascular Disease | DX: R06.02 Shortness of breath (principal); E78.5 Hyperlipidemia, unspecified ==

== ENCOUNTER → 2021-05-30 | Outpatient (CLI) | payer MEDICARE ==
[2021-05-30 14:34] LABS: CHOLESTEROL RISK RATIO 2.391 (<5)
== END ==
LOC: M PLALAB 11:39
PROVIDERS: ATTEND Student in an Organized Health Care Education/Training Program
DX: E78.5 Hyperlipidemia, unspecified (principal)

== ENCOUNTER → 2021-06-04 | Outpatient (CLI) | payer MEDICARE ==
--- NOTE | 2021-06-05 23:49 | ECWPNPC ---
PATIENT NAME: DARIUS RUDOLPH : 1955 GENDER: FEMALE VISIT DATE: 06/04/2021 DISCHARGE DATE: 06/04/21 1110 VISIT LOCKED DATE TIME: PHYSICIAN: MATT PENA PHYSICIAN PAGER NO: ACTIVE RESOURCE: MATT PENA REASON FOR APPOINTMENT 1. DISCUSS MEDS HISTORY OF PRESENT ILLNESS GENERAL: HPI 66-YEAR-OLD FEMALE IN FOR CHRONIC PAIN FOLLOW-UP. PATIENT HAS COMPLAINTS OF INCREASED PAIN RATING HER PAIN CURRENTLY AT A 7 OUT OF 10 AND DESCRIBING IT ACHING AND CONTINUOUS.PATIENT WAS GIVEN A SHORT COURSE OF SOMA GIVEN EXACERBATED PAIN AND SHE ADMITS THAT THIS WAS BENEFICIAL HOWEVER SHE IS STILL EXPERIENCING INCREASED PAIN.. -. FALL RISK SCREENING: SCREENING ONE FALL REPORTED IN THE LAST YEAR WITH INJURY. PATIENT DID NOT RECEIVE IMMEDIATE MEDICAL TREATMENT.. PAIN SCREENING: PATIENT HAS A COMPLAINT OF ACUTE OR CHRONIC PAIN :YES LOCATION OF PAIN:LOW BACK INTENSITY OF PAIN (SCALE OF 1 TO 10):7 WHAT DOES YOUR PAIN FEEL LIKE:ACHING, CONTINOUS, THROBBING, OTHER PULSATING DURATION:INTERMITTENT PATIENT STATES SHE FEELS THE PAIN "EVERY TIME PATIENT TAKES A STEP." PAIN IS INCREASED BY:ACTIVITIES, PROLONGED STANDING, OTHERS PAIN IS DECREASED BY:USE OF PAIN MEDICATIONS, SITTING SOMA HELPED NURSING NOTE: -. CURRENT MEDICATIONS TAKING DYMISTA NASAL SPRAY AZELASTINE HYRDOCHLORIDE 137MCG & FLUTICASONE PROPIONATE 50MCG( SOLUTION ONE SPRAY PER NOSTRIL NASALLLY TWICE DAILY TAKING TROSPIUM CHLORIDE 20 MG TABLET TABLET AT BEDTIME ON AN EMPTY STOMACH ORALLY TWICE DAILY, NOTES: UP TO 60 MG TAKING MULTIVITAMINS - TABLET 1 TABLET ORALLY ONCE A DAY TAKING BLOOD GLUCOSE METER - KIT 1 METER DX:E11.9 6-8 TIMES DAILY PER SPECIALIST, NOTES: PLEASE DISPENSE ONE TOUCH VERIO FLEX MONITOR TAKING AMILORIDE HCL 5 MG TABLET 1 TABLET ORALLY ONCE A DAY TAKING BLOOD GLUCOSE TEST - STRIP 1 STRIP IN VITRO 6-8 TIMES DAILY DX:E11.9 TAKING VICTOZA 18 MG/3ML SOLUTION PEN-INJECTOR 0.6 MG FOR 1 WEEK, THEN 1.2MG FOR 1 WEEK, THEN 1.8MG DAILY SUBCUTANEOUS DAILY TAKING ATORVASTATIN CALCIUM 80 MG TABLET 1 TABLET ORALLY ONCE A DAY TAKING BUMETANIDE 1 MG TABLET DIRECTED ORALLY TAKING BASAGLAR KWIKPEN 100 UNIT/ML SOLUTION PEN-INJECTOR DIRECTED SUBCUTANEOUS , NOTES: 30U QAM TAKING ACETAMINOPHEN 500 MG TABLET 2 TABLETS ORALLY EVERY 6 HOURS NEEDED (MDD 3000 MG) TAKING LOPERAMIDE HCL 2 MG CAPSULE 1 CAPSULE NEEDED ORALLY FOUR TIMES A DAY TAKING GABAPENTIN 800 MG TABLET 1 CAPSULE ORALLY TID TAKING AZELASTINE HCL 0.1 % SOLUTION 1 PUFF IN EACH NOSTRIL NASALLY TWICE A DAY TAKING APIDRA 100 UNIT/ML SOLUTION DIRECTED INJECTION TAKING MAY HAVE _ INSULIN PUMP _ TAKING CRANBERRY 250 MG CAPSULE ORALLY ONCE A DAY TAKING FENOFIBRATE 134 MG CAPSULE 1 CAPSULE WITH A MEAL ORALLY ONCE A DAY TAKING CINNAMON 500 MG CAPSULE 2 CAPSULES DAILY TAKING LUTEIN-ZEAXANTHIN 20-1 MG CAPSULE ORALLY DAILY TAKING LOW-DOSE ASPIRIN 81 MG TABLET 1 TABLET ORALLY ONCE A DAY TAKING CHOLESTYRAMINE LIGHT 4 GM/DOSE POWDER 1 SCOOP ORALLY ONCE A DAY TAKING LISINOPRIL 10 MG TABLET 1 TABLET ORALLY ONCE A DAY TAKING AMOXICILLIN 500 MG CAPSULE 4 CAPSULE ORALLY MORNING OF DENTAL PROCEDURE TAKING VITAMIN B12 TR 2000 MCG TABLET EXTENDED RELEASE 5000 MCG ORALLY ONCE A DAY TAKING FAMOTIDINE 20 MG TABLET 1 TABLET ORALLY TWICE DAILY NEEDED TAKING CALCIUM + D3 600-800 MG-UNIT TABLET 1 TABLET WITH A MEAL ORALLY ONCE A DAY TAKING LIDOCAINE & MENTHOL 4-4 % LIQUID DIRECTED EXTERNALLY TAKING SOMA 350 MG TABLET 1 TABLET NEEDED ORALLY Q 12 HRS NOT-TAKING VITAMIN D3 50 MCG (2000 UT) CAPSULE ORALLY ONCE A DAY NOT-TAKING LOPERAMIDE HCL 2 MG TABLET TAKE 2 TABLETS PO, THEN 1 TABLET AFTER EACH LOOSE STOOL; MDD OF 16 ORALLY FOUR TIMES A DAY NOT-TAKING BASAGLAR KWIKPEN 35 UNIT SUBCUTANEOUS WHEN NO PUMP MEDICATION LIST REVIEWED AND RECONCILED WITH THE PATIENT PAST MEDICAL HISTORY LOWER EXTREMITY SWELLING INSULIN DEPENDENT DIABETES MELLITUS HYPERTENSION DYSLIPIDEMIA ENDOMETRIAL CANCER 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, CERVIX REMOVE, WELL OVARIES 2012) ALLERGIES ADHESIVE TAPE: REDNESS, ITCHING, SORES - ALLERGY HUMALOG: ITCHY LUMPS AT INJECTION SITE - ALLERGY NOVOLOG: ITCHY LUMPS AT INJECTION SITE - ALLERGY ADMELOG: ITCHY LUMPS AT INJECTION SITE - ALLERGY SOCIAL HISTORY GENERAL: TOBACCO USE ARE YOU A:NONSMOKER NEVER SMOKER LATEX QUESTIONNAIRE LATEX ALLERGY : HAVE YOU EVER DEVELOPED ANY TYPE OF REACTION AFTER HANDLING LATEX PRODUCTS SUCH RUBBER GLOVES, CONDOMS, DIAPHRAGMS, BALLOONS, SOCKS, OR UNDERWEAR?NO LATEX ALLERGY : HAVE YOU EVER DEVELOPED ANY TYPE OF REACTION DURING OR AFTER DENTAL APPOINTMENT, VAGINAL/RECTAL EXAMINATION, SURGICAL PROCEDURE, OR ANY OTHER EXPOSURE?NO LATEX RISK : HAVE YOU EVER HAD ANY DIFFICULTY BREATHING OR HIVES AFTER EATING OR HANDLING ANY FRUITS, OR VEGETABLES; SUCH KIWI, BANANAS, STONE FRUITS, OR CHESTNUTSNO LATEX RISK : DO YOU HAVE A PREVIOUS PERSONAL HISTORY OF MORE THAN NINE SURGERIES, SPINA BIFIDA, OR REPEATED CATHERIZATIONS? NO LATEX RISK : ARE YOU FREQUENTLY EXPOSED TO LATEX PRODUCTS IN YOUR OCCUPATION?NO DATE ASKED : 06/04/2021 ALCOHOL USE: NO. BMI CARE GOAL FOLLOW-UP ABOVE NORMAL BMI FOLLOW-UPDIETARY NEEDS EDUCATION ALCOHOL SCREENING DID YOU HAVE A DRINK CONTAINING ALCOHOL IN THE PAST YEAR?NO POINTS0 INTERPRETATIONNEGATIVE RECREATIONAL DRUG USE DRUG USE?NO CAFFEINE CAFFEINE USE?YES 1 DIET [place] PER WEEK SEXUAL HX HAD SEX IN THE LAST 12 MONTHS (VAGINAL, ORAL, OR ANAL)?NO LMP:HYSTERECTOMY HAVE YOU EVER HAD AN STD?NO HIV / HEP-C SCREENING HIV TEST OFFERED TO PATIENT:YES DATE OFFERED:06/24/2017 TEST ACCEPTED:NO HEP-C TEST OFFERED TO PATIENT:YES DATE OFFERED:06/24/2017 REASON:PATIENT DECLINED TEST ACCEPTED:NO REASON:PATIENT DECLINED ORTHODOX [id number] MANDAEISM NO LUTHERAN BELIEFS THAT WOULD IMPACT HEALTH CARE. LANGUAGE LANGUAGES SPOKEN:MARSHALLESE EDUCATION LEVEL OF EDUCATION:FINISHED COLLEGE LEARNING BARRIERS / SPECIAL NEEDS CHANGE FROM LAST VISIT?NO BARRIERS TO LEARNING?NO HEARING IMPAIRED?YES L EAR WORSE, VISION IMPAIRED?YES COGNITIVELY IMPAIRED?NO :HEARING AIDES RACHEL. 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 DIET: REGULAR. EXERCISE: NO REGULAR EXERCISE. MARITAL STATUS: .. OTHERS AT HOME: NONE. - HAS THE PATIENT BEEN EDUCATED REGARDING HIS/HER PLAN OF CARE?YES HAS THE PATIENT BEEN EDUCATED REGARDING PAIN, THE RISK FOR PAIN, THE IMPORTANCE OF EFFECTIVE PAIN MANAGEMENT, AND THE PAIN ASSESSMENT PROCESS?YES ADVANCE DIRECTIVE ADVANCE DIRECTIVE DISCUSSED WITH PATIENT:YES PT DOES NOT HAVE A HCP, PT DECLINED PAPERWORK REVIEW OF SYSTEMS CONSTITUTIONAL: ANY RECENT FEVER NO . CHILLS NO . WEIGHT CHANGE OF UNKNOWN REASONS NO . GASTROENTEROLOGY: NEW UNEXPLAINABLE CHANGES IN BOWEL CONTROL NO . CONSTIPATION NO . GENITOURINARY: ANY NEW CHANGE IN BLADDER CONTROL? NO . NEUROLOGY: NEW ONSET DIZZINESS OR NEUROLOGICAL CHANGES NOT MENTIONED NO . NEW NUMBNESS OR PAIN PATTERNS NOT MENTIONED AND PERTINENT TO TODAY'S VISIT NO . CARDIOLOGY: NEW CHEST PRESSURE NO . PATIENT DENIES NO . RESPIRATORY: UNEXPLAINABLE COUGH NO . NEW SHORTNESS OF BREATH NO . VITAL SIGNS WT 302.8 LBS, HT 64 1/2, BMI 51.17 INDEX, BP 136/73 MM HG, HR 77 /MIN, RR 18 /MIN, TEMP 96.7 F, OXYGEN SAT % 96%, SAFE IN ENV? (Y/N) YES, NA INITIALS ME 10:42, REVIEWED BY: BANDAR STONE MA. EXAMINATION GENERAL EXAMINATION: GENERALNO ACUTE DISTRESS, WELL NOURISHED AND HYDRATED. PSYCHAPPROPRIATE MOOD AND AFFECT . LUNGS:CLEAR TO AUSCULTATION BILATERALLY, NO WHEEZES, RHONCHI, RALES. HEART:NO MURMURS, REGULAR RATE AND RHYTHM. ASSESSMENTS INTERVERTEBRAL DISC DISORDERS WITH RADICULOPATHY, LUMBOSACRAL REGION - M51.17 (PRIMARY) TREATMENT INTERVERTEBRAL DISC DISORDERS WITH RADICULOPATHY, LUMBOSACRAL REGION START DICLOFENAC SODIUM TABLET DELAYED RELEASE, 50 MG, 1 TABLET, ORALLY, THREE TIMES DAILY, 30 DAY(S), 90, REFILLS 1 NOTES: 66-YEAR-OLD FEMALE IN FOR CHRONIC PAIN FOLLOW-UP. GIVEN PRESENTING SYMPTOMS RECOMMEND STARTING DICLOFENAC SODIUM 50 MG 3 TIMES DAILY WITH FOLLOW-UP IN 1 MONTH TO DETERMINE EFFICACY OF TREATMENT. PATIENT HAS EXPRESSED UNDERSTANDING OF AND WAS IN AGREEMENT WITH TREATMENT PLAN. GIVEN TIME TO ASK QUESTIONS AND EXPRESS CONCERNS. CLINICAL NOTES: DICLOFENAC MATERIAL PRINTED AND PROVIDED TO PATIENT. PATIENT VERBALIZED AN UNDERSTANDING. MUKESH STONE MA. PROCEDURE CODES FA211 ESTABILISHED PATIENT [facility] FACILITY CHARGE DISPOSITION & COMMUNICATION FOLLOW UP 4 WEEKS (REASON: NEW MED) ELECTRONICALLY SIGNED BY ADÁN LAM ON 06/05/2021 AT 08:46 AM EDT DISCLAIMER : THIS IS A VISIT SUMMARY EXTRACTED FROM THE [employer] CHART. IT IS NOT A COPY OF THE [employer] PROGRESS NOTE. ROSALINE
== END ==
LOC: M PAIN 10:45
PROVIDERS: ATTEND Family Medicine
DX: M51.17 Intervertebral disc disorders with radiculopathy, lumbosacral region (principal); E11.9 Type 2 diabetes mellitus without complications; I10 Essential (primary) hypertension; E78.5 Hyperlipidemia, unspecified; R32 Unspecified urinary incontinence; Z85.44 Personal history of malignant neoplasm of other female genital organs; Z79.899 Other long term (current) drug therapy; Z88.8 Allergy status to other drugs, medicaments and biological substances; Z91.048 Other nonmedicinal substance allergy status

== ENCOUNTER → 2021-06-07 | Outpatient (CLI) | payer MEDICARE ==
--- NOTE | 2021-06-07 15:27 | REPVR ---
PROCEDURE INFORMATION: Exam: MR Thoracic Spine Without Contrast Exam date and time: 06/07/2021 2:02 PM Age: 66 years old Clinical indication: Pain in thoracic spine; Other: Pain in t spine TECHNIQUE: Imaging protocol: Multiplanar magnetic resonance images of the thoracic spine without contrast. COMPARISON: SD FLUORO GUIDE SPINE INJECTION 05/08/2021 1:02 PM FINDINGS: Vertebrae: No acute compression fracture in the thoracic spine. Spinal cord: There is no abnormal signal in the mid to lower thoracic spinal cord. The upper thoracic spinal cord is not well assessed possibly due to motion. The images do include the lower cervical spine and there is mild spinal canal stenosis at C6-C7 due to bony proliferation of the vertebral body endplates narrowing the ventral spinal canal however there does not appear to be compression of the cervical spinal cord. There is bilateral neural foraminal narrowing which may affect the C7 nerve roots. Series 801, image 1 frame 88. 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 There is a small asymmetrically bulging annulus or endplate osteophyte to the right of midline at T7-8 without spinal canal stenosis. Discs/Spinal canal/Neural foramina: There is no significant spinal canal stenosis or neural foraminal narrowing in the thoracic spine. There is probable calcification of the ligamentum flavum at the T5-6 level without cord compression or significant canal stenosis. Series 401, image 1 frame 8, series 701, image 1 frame 59. No bulging annuli or disc herniations are apparent in the thoracic spine. Soft tissues: Unremarkable. IMPRESSION: No evidence of neural compromise in the thoracic spine. Electronically signed by: Betty Grant On 06/07/2021 15:26:36 PM
== END ==
LOC: M RAD 13:08
PROVIDERS: ATTEND Family Medicine
DX: M51.34 Other intervertebral disc degeneration, thoracic region (principal)

== ENCOUNTER → 2021-06-28 | Outpatient (CLI) | payer MEDICARE | LOC: M PAIN 11:15 | PROVIDERS: ATTEND Anesthesiology | DX: M48.062 Spinal stenosis, lumbar region with neurogenic claudication (principal); M51.16 Intervertebral disc disorders with radiculopathy, lumbar region; M47.817 Spondylosis without myelopathy or radiculopathy, lumbosacral region; G89.29 Other chronic pain; E11.9 Type 2 diabetes mellitus without complications; Z88.8 Allergy status to other drugs, medicaments and biological substances; Z91.09 Other allergy status, other than to drugs and biological substances; E66.09 Other obesity due to excess calories; Z68.43 Body mass index [BMI] 50.0-59.9, adult; Z79.4 Long term (current) use of insulin; Z79.82 Long term (current) use of aspirin; Z79.899 Other long term (current) drug therapy ==

== ENCOUNTER → 2021-07-04 | Outpatient (CLI) | payer MEDICARE ==
[2021-07-04 11:50] LABS: HEMOGLOBIN A1c 6.2 %
[2021-07-04 12:02] LABS: ALBUMIN 3.6 GM/DL (3.2-5.2); ALT/SGPT 50 U/L (12-78); BILIRUBIN,TOTAL 0.4 MG/DL (0.2-1.0); BLOOD UREA NITROGEN 18 MG/DL (7-18); CALCIUM LEVEL 9.4 MG/DL (8.8-10.2); CARBON DIOXIDE LEVEL 28 MEQ/L (21-32); CHLORIDE LEVEL 107 MEQ/L (98-107); CREATININE FOR GFR 0.93 MG/DL (0.55-1.30); GLOMERULAR FILTRATION RATE > 60.0 (>45); GLUCOSE, FASTING 106 MG/DL (70-100); POTASSIUM SERUM 4.7 MEQ/L (3.5-5.1); SODIUM LEVEL 138 MEQ/L (136-145); TOTAL PROTEIN 7.1 GM/DL (6.4-8.2)
[2021-07-04 12:07] LABS: MAU/CREAT RATIO 87.6 MCG/MG (0.0-30.0)
[2021-07-04 12:21] LABS: TOTAL 25(OH) VITAMIN D 39.9 NG/ML (30.0-100.0)
== END ==
LOC: M LAB 10:17
PROVIDERS: ATTEND Nurse Practitioner Family
DX: E11.65 Type 2 diabetes mellitus with hyperglycemia (principal)

== ENCOUNTER → 2021-07-09 | Outpatient (CLI) | payer MEDICARE ==
--- NOTE | 2021-07-09 16:14 | REP ---
INDICATION: SPINAL STENOSIS, LUMBAR REGION WITH NEUROGENIC CLAUDICATION. COMPARISON: Comparison MRI study March 13, 2021. TECHNIQUE: Seven views including lateral views with flexion and extension. FINDINGS: Lumbar vertebral body heights are preserved. There is a grade 1 L4-5 spondylolisthesis with L4 5.3 mm anterior with respect L5. There is discogenic spurring and slight disc space narrowing at L4-5. Osteoarthritic facet hypertrophy and sclerosis are present bilaterally at L4-5. The spondylolisthesis measures 5.3 mm on what appears to be the neutral lateral image and 3.4 mm on the extension and flexion views. No bony destructive lesion is seen. Alignment is otherwise normal. Psoas margins are symmetric. There are clips in right upper quadrant the abdomen. A right hip arthroplasty is noted. Sacrum and SI joints are intact. IMPRESSION: Degenerative disc and osteoarthritic facet disease at L4-5 with a grade 1 5 mm L4-5 spondylolisthesis. This appears more pronounced than on the MR images from February 11, 2021. There is no evidence of spondylolysis. <Electronically signed by Rigoberto Prakash > 07/09/21 [id number]
== END ==
LOC: M RAD 14:11
PROVIDERS: ATTEND Anesthesiology
DX: M48.062 Spinal stenosis, lumbar region with neurogenic claudication (principal); N39.0 Urinary tract infection, site not specified

== ENCOUNTER → 2021-07-09 | Outpatient (REF) | payer MEDICARE ==
[2021-07-09 15:46] LABS: APPEARANCE, URINE TURBID (CLEAR); BACTERIA, URINE AUTO 2+ (NEGATIVE); BILIRUBIN, URINE AUTO NEGATIVE (NEGATIVE); BLOOD, URINE BLOOD NEGATIVE (NEGATIVE); COLOR, URINE YELLOW (YELLOW); GLUCOSE, URINE (UA) AUTO NEGATIVE (NEGATIVE); KETONE, URINE AUTO NEGATIVE (NEGATIVE); LEUKOCYTE ESTERASE, URINE AUTO 3+ (NEGATIVE); MUCUS, URINE SMALL (NEGATIVE); NITRITE, URINE AUTO POSITIVE (NEGATIVE); PROTEIN, URINE AUTO 1+ mg/dL (NEGATIVE); RBC, URINE AUTO 23 /HPF (0-3); SPECIFIC GRAVITY URINE AUTO 1.013 (1.002-1.035); SQUAMOUS EPITHELIAL CELL UR AU 30 /HPF (0-6); UROBILINOGEN, URINE AUTO 0.2 mg/dL (0.0-2.0); WBC, URINE AUTO TNTC /HPF (0-3)
== END ==
LOC: M LAB REF 15:13
PROVIDERS: ATTEND Urology
DX: N39.0 Urinary tract infection, site not specified (principal)

== ENCOUNTER → 2021-08-01 | Outpatient (CLI) | payer MEDICARE | LOC: M LABSMTC 11:43 | PROVIDERS: ATTEND Anesthesiology | DX: Z20.822 Contact with and (suspected) exposure to COVID-19 (principal) ==

== ENCOUNTER → 2021-08-04 | Outpatient (REF) | payer MEDICARE ==
[2021-08-04 10:47] LABS: BACTERIA, URINE AUTO 1+ (NEGATIVE); MUCUS, URINE SMALL (NEGATIVE); RBC, URINE AUTO 27 /HPF (0-3); SQUAMOUS EPITHELIAL CELL UR AU 0 /HPF (0-6); WBC, URINE AUTO 98 /HPF (0-3)
[2021-08-04 10:52] LABS: APPEARANCE, URINE CLOUDY (CLEAR); COLOR, URINE YELLOW (YELLOW); PROTEIN, URINE AUTO 1+ mg/dL (NEGATIVE); SPECIFIC GRAVITY URINE AUTO 1.018 (1.002-1.035)
[2021-08-04 10:53] LABS: BILIRUBIN, URINE AUTO NEGATIVE (NEGATIVE); BLOOD, URINE BLOOD 1+ (NEGATIVE); GLUCOSE, URINE (UA) AUTO NEGATIVE (NEGATIVE); KETONE, URINE AUTO NEGATIVE (NEGATIVE); LEUKOCYTE ESTERASE, URINE AUTO 3+ (NEGATIVE); NITRITE, URINE AUTO POSITIVE (NEGATIVE); UROBILINOGEN, URINE AUTO 0.2 mg/dL (0.0-2.0)
== END ==
LOC: M LAB REF 10:32
PROVIDERS: ATTEND Urology
DX: R39.15 Urgency of urination (principal)

== ENCOUNTER → 2021-09-05 | Outpatient (CLI) | payer MEDICARE ==
[2021-09-05 17:55] LABS: APPEARANCE, URINE CLOUDY (CLEAR); BACTERIA, URINE AUTO 3+ (NEGATIVE); BILIRUBIN, URINE AUTO NEGATIVE (NEGATIVE); BLOOD, URINE BLOOD NEGATIVE (NEGATIVE); COLOR, URINE YELLOW (YELLOW); GLUCOSE, URINE (UA) AUTO NEGATIVE (NEGATIVE); KETONE, URINE AUTO NEGATIVE (NEGATIVE); LEUKOCYTE ESTERASE, URINE AUTO 3+ (NEGATIVE); MUCUS, URINE SMALL (NEGATIVE); NITRITE, URINE AUTO NEGATIVE (NEGATIVE); PROTEIN, URINE AUTO 1+ mg/dL (NEGATIVE); RBC, URINE AUTO 6 /HPF (0-3); SPECIFIC GRAVITY URINE AUTO 1.015 (1.002-1.035); SQUAMOUS EPITHELIAL CELL UR AU 1 /HPF (0-6); UROBILINOGEN, URINE AUTO 0.2 mg/dL (0.0-2.0); WBC, URINE AUTO TNTC /HPF (0-3)
== END ==
LOC: M LAB 16:23
PROVIDERS: ATTEND Urology
DX: R35.0 Frequency of micturition (principal)

== ENCOUNTER → 2021-09-12 | Outpatient (CLI) | payer MEDICARE | LOC: M LABSMTC 10:35 | PROVIDERS: ATTEND Anesthesiology | DX: Z20.828 Contact with and (suspected) exposure to other viral communicable diseases (principal); Z11.52 Encounter for screening for COVID-19 ==

== ENCOUNTER → 2021-09-17 | Outpatient (CLI) | payer MEDICARE ==
[~2021-09-17] MED LIST changes: +BUPIVACAINE HCL 0.25% 30ML VIAL As Ordered ONE; +ISOVUE-M 300 61% 15ML VIAL As Ordered ONE; +LIDOCAINE 1% SDV 30ML VIAL As Ordered ONE; +NORCO, ANEXSIA 5/325MG TABLET (HYDROcodone/ACETAMINOPHEN) As Ordered ONE; +dexameTHASONE 10MG/1ML VIAL PRES.FREE (J1100 PER 1MG) As Ordered ONE; +diazePAM 2 MG TAB As Ordered ONE
--- NOTE | 2021-09-17 16:46 | REP ---
INDICATION: RIGHT TRANSFORAMINAL EPIDURAL STEROID INJECTION L3-L4, L4-L5. COMPARISON: None. TECHNIQUE: Multiple C-arm views lumbar spine. FINDINGS: [place] are seen along the lumbar spine. Contrast is injected. IMPRESSION: 41 seconds fluoroscopy time utilized. <Electronically signed by Glen Ribeiro > 09/17/21 [id number]
== END ==
LOC: M PAIN 11:40
PROVIDERS: ATTEND Anesthesiology
DX: M51.16 Intervertebral disc disorders with radiculopathy, lumbar region (principal); E11.9 Type 2 diabetes mellitus without complications; Z88.8 Allergy status to other drugs, medicaments and biological substances; Z91.09 Other allergy status, other than to drugs and biological substances; E66.01 Morbid (severe) obesity due to excess calories; Z68.43 Body mass index [BMI] 50.0-59.9, adult; Z79.4 Long term (current) use of insulin; Z79.82 Long term (current) use of aspirin; Z79.899 Other long term (current) drug therapy
CPT/HCPCS: 64483; J1100; Q9967

== ENCOUNTER → 2021-09-25 | Outpatient (CLI) | payer MEDICARE ==
[~2021-09-25] MED LIST changes: -BUPIVACAINE HCL 0.25% 30ML VIAL As Ordered ONE; -ISOVUE-M 300 61% 15ML VIAL As Ordered ONE; -LIDOCAINE 1% SDV 30ML VIAL As Ordered ONE; -NORCO, ANEXSIA 5/325MG TABLET (HYDROcodone/ACETAMINOPHEN) As Ordered ONE; -dexameTHASONE 10MG/1ML VIAL PRES.FREE (J1100 PER 1MG) As Ordered ONE; -diazePAM 2 MG TAB As Ordered ONE
== END ==
LOC: M LAB 12:22
PROVIDERS: ATTEND Physician Assistant
DX: R06.02 Shortness of breath (principal); N39.0 Urinary tract infection, site not specified

== ENCOUNTER → 2021-09-25 | Outpatient (REF) | payer MEDICARE ==
[2021-09-25 18:40] LABS: APPEARANCE, URINE TURBID (CLEAR); BACTERIA, URINE AUTO NEGATIVE (NEGATIVE); BILIRUBIN, URINE AUTO NEGATIVE (NEGATIVE); BLOOD, URINE BLOOD NEGATIVE (NEGATIVE); CALCIUM OXALATE CRYSTALS LARGE; COLOR, URINE AMBER (YELLOW); GLUCOSE, URINE (UA) AUTO NEGATIVE (NEGATIVE); KETONE, URINE AUTO NEGATIVE (NEGATIVE); LEUKOCYTE ESTERASE, URINE AUTO 3+ (NEGATIVE); MUCUS, URINE SMALL (NEGATIVE); NITRITE, URINE AUTO POSITIVE (NEGATIVE); PROTEIN, URINE AUTO 2+ mg/dL (NEGATIVE); RBC, URINE AUTO 24 /HPF (0-3); SPECIFIC GRAVITY URINE AUTO 1.027 (1.002-1.035); SQUAMOUS EPITHELIAL CELL UR AU 13 /HPF (0-6); TRANSITIONAL EPITHELIAL AUTO 1 /HPF; UROBILINOGEN, URINE AUTO 0.2 mg/dL (0.0-2.0); WBC, URINE AUTO TNTC /HPF (0-3)
== END ==
LOC: M LAB REF 18:17
PROVIDERS: ATTEND Urology
DX: N39.0 Urinary tract infection, site not specified (principal)

== ENCOUNTER → 2021-10-13 | Outpatient (CLI) | payer MEDICARE ==
[2021-10-13 11:33] LABS: APPEARANCE, URINE CLOUDY (CLEAR); BACTERIA, URINE AUTO 1+ (NEGATIVE); BILIRUBIN, URINE AUTO NEGATIVE (NEGATIVE); BLOOD, URINE BLOOD NEGATIVE (NEGATIVE); COLOR, URINE YELLOW (YELLOW); GLUCOSE, URINE (UA) AUTO NEGATIVE (NEGATIVE); KETONE, URINE AUTO NEGATIVE (NEGATIVE); LEUKOCYTE ESTERASE, URINE AUTO 3+ (NEGATIVE); MUCUS, URINE SMALL (NEGATIVE); NITRITE, URINE AUTO NEGATIVE (NEGATIVE); PROTEIN, URINE AUTO NEGATIVE (NEGATIVE); RBC, URINE AUTO 11 /HPF (0-3); SPECIFIC GRAVITY URINE AUTO 1.016 (1.002-1.035); SQUAMOUS EPITHELIAL CELL UR AU 2 /HPF (0-6); UROBILINOGEN, URINE AUTO 0.2 mg/dL (0.0-2.0); WBC, URINE AUTO TNTC /HPF (0-3)
== END ==
LOC: M LAB 11:07
PROVIDERS: ATTEND Urology
DX: R39.9 Unspecified symptoms and signs involving the genitourinary system (principal)

== ENCOUNTER → 2021-10-17 | Outpatient (CLI) | payer MEDICARE, OTHER ==
[~2021-10-17] MED LIST changes: -DICY20TA11 PO; +DICY20TA20 PO
== END ==
LOC: M PAIN 11:00
PROVIDERS: ATTEND Anesthesiology
DX: M47.816 Spondylosis without myelopathy or radiculopathy, lumbar region (principal); G89.29 Other chronic pain; E11.9 Type 2 diabetes mellitus without complications; Z96.641 Presence of right artificial hip joint; Z88.8 Allergy status to other drugs, medicaments and biological substances; Z91.09 Other allergy status, other than to drugs and biological substances; E66.01 Morbid (severe) obesity due to excess calories; Z68.43 Body mass index [BMI] 50.0-59.9, adult; Z79.4 Long term (current) use of insulin; Z79.82 Long term (current) use of aspirin; Z79.899 Other long term (current) drug therapy

== ENCOUNTER → 2021-10-25 | Outpatient (CLI) | payer MEDICARE ==
[~2021-10-25] MED LIST changes: +DICY20TA11 PO; -DICY20TA20 PO
--- NOTE | 2021-10-30 15:55 | REPMRS ---
Patient History The patient states she has not had a clinical breast exam in over a year. Patient is postmenopausal, has history of endometrial cancer at age 56, and is nulliparous. No known family history of cancer. Taking unspecified hormones for 10 months. Tomosynthesis is performed. Volpara breast density is a. [facility] lifetime risk of breast cancer 6.4%. Patient states no breast complaints today. Patient has signed MRS History Sheet. Digital Woman Screen Mammo: October 25, 2021 - Exam #: [id number] Bilateral CC and MLO view(s) were taken. Technologist: Princess Baker, Technologist Prior study comparison: 2019, bilateral digital mammo screening bilat. FINDINGS: There are scattered fibroglandular densities. There has been no change in the appearance of the mammogram from the prior studies. There is a mild amount of residual fibroglandular tissue which is fairly symmetric. There is no interval development of dominant mass, architectural distortion, or clustered microcalcification suggestive of malignancy. Assessment: BI-RADS/ACR category 1 mammogram. Negative Mammogram. Recommendation Routine screening mammogram in 1 year (for women over age 40). This mammogram was interpreted with the aid of an FDA-approved computer-aided dectection system. Electronically Signed By: Glen Ribeiro MD 10/30/21 [id number]
== END ==
LOC: M WHC 14:45
PROVIDERS: ATTEND Student in an Organized Health Care Education/Training Program
DX: Z12.31 Encounter for screening mammogram for malignant neoplasm of breast (principal)

== ENCOUNTER → 2021-11-21 | Outpatient (CLI) | payer MEDICARE ==
[~2021-11-21] MED LIST changes: -DICY20TA11 PO; +DICY20TA20 PO
== END ==
LOC: M LABSMTC 11:10
PROVIDERS: ATTEND Anesthesiology
DX: Z01.812 Encounter for preprocedural laboratory examination (principal); Z20.822 Contact with and (suspected) exposure to COVID-19

== ENCOUNTER → 2021-11-26 | Outpatient (CLI) | payer MEDICARE, OTHER ==
[~2021-11-26] MED LIST changes: +BUPIVACAINE HCL 0.25% 30ML VIAL As Ordered ONE; +ISOVUE-M 300 61% 15ML VIAL As Ordered ONE; +LIDOCAINE 1% SDV 30ML VIAL As Ordered ONE
== END ==
LOC: M PAIN 10:00
PROVIDERS: ATTEND Anesthesiology
DX: M47.816 Spondylosis without myelopathy or radiculopathy, lumbar region (principal); M47.817 Spondylosis without myelopathy or radiculopathy, lumbosacral region; E11.9 Type 2 diabetes mellitus without complications; Z96.641 Presence of right artificial hip joint; Z88.8 Allergy status to other drugs, medicaments and biological substances; Z91.09 Other allergy status, other than to drugs and biological substances; E66.01 Morbid (severe) obesity due to excess calories; Z68.42 Body mass index [BMI] 45.0-49.9, adult; Z79.4 Long term (current) use of insulin; Z79.82 Long term (current) use of aspirin; Z79.899 Other long term (current) drug therapy
CPT/HCPCS: 64493; 64494; Q9967

== ENCOUNTER → 2021-12-10 | Outpatient (CLI) | payer MEDICARE, OTHER ==
[~2021-12-10] MED LIST changes: -BUPIVACAINE HCL 0.25% 30ML VIAL As Ordered ONE; -ISOVUE-M 300 61% 15ML VIAL As Ordered ONE; -LIDOCAINE 1% SDV 30ML VIAL As Ordered ONE
== END ==
LOC: M PAIN 14:00
PROVIDERS: ATTEND Nurse Practitioner Family
DX: M47.816 Spondylosis without myelopathy or radiculopathy, lumbar region (principal); M47.817 Spondylosis without myelopathy or radiculopathy, lumbosacral region; G89.29 Other chronic pain; E11.9 Type 2 diabetes mellitus without complications; Z96.641 Presence of right artificial hip joint; Z88.8 Allergy status to other drugs, medicaments and biological substances; Z91.09 Other allergy status, other than to drugs and biological substances; E66.01 Morbid (severe) obesity due to excess calories; Z68.42 Body mass index [BMI] 45.0-49.9, adult; Z79.4 Long term (current) use of insulin; Z79.82 Long term (current) use of aspirin; Z79.899 Other long term (current) drug therapy

== ENCOUNTER → 2022-02-22 | Outpatient (CLI) | payer MEDICARE, OTHER | LOC: M PAIN 10:15 | PROVIDERS: ATTEND Anesthesiology | DX: M47.816 Spondylosis without myelopathy or radiculopathy, lumbar region (principal); G89.29 Other chronic pain; E11.9 Type 2 diabetes mellitus without complications; Z96.641 Presence of right artificial hip joint; Z88.8 Allergy status to other drugs, medicaments and biological substances; Z91.09 Other allergy status, other than to drugs and biological substances; Z79.4 Long term (current) use of insulin; Z79.82 Long term (current) use of aspirin; Z79.899 Other long term (current) drug therapy ==

== ENCOUNTER → 2022-03-08 | Outpatient (CLI) | payer MEDICARE, OTHER | LOC: M LABSMTC 11:48 | PROVIDERS: ATTEND Anesthesiology | DX: Z01.812 Encounter for preprocedural laboratory examination (principal); Z20.822 Contact with and (suspected) exposure to COVID-19 ==

== ENCOUNTER → 2022-03-12 | Outpatient (CLI) | payer MEDICARE, OTHER ==
[~2022-03-12] MED LIST changes: +AMIL5TAB4 PO; +B-122500 PO; +BUME0.5T2 PO; +BUPIVACAINE HCL 0.25% 30ML VIAL As Ordered ONE; +CALC1TAB26 PO; +COLE625TAB PO; +CRAN450T4 PO; +DULO1CAP6 PO; +ECOT81TA5 PO; +FAMO20TA PO; +FENO134C16 PO; +GABA800T4 PO; +IMVE4SUP VA; +ISOVUE-M 300 61% 15ML VIAL As Ordered ONE; +LIDOCAINE 1% SDV 30ML VIAL As Ordered ONE; +LOPE1LIQ PO; +LUTE1CAP7 PO; +MULT-90 PO; +QC A650T3 PO; +TIZA4CAP PO; +TROS60CA2 PO
[2022-03-12 16:35] VITALS: BP 126/72
== END ==
LOC: M IRPRO 14:14
PROVIDERS: ATTEND Anesthesiology
DX: M47.816 Spondylosis without myelopathy or radiculopathy, lumbar region (principal); G89.29 Other chronic pain; E11.9 Type 2 diabetes mellitus without complications; Z88.8 Allergy status to other drugs, medicaments and biological substances
CPT/HCPCS: 64493; 64494; Q9967

== ENCOUNTER → 2022-04-01 | Outpatient (CLI) | payer MEDICARE, OTHER ==
[~2022-04-01] MED LIST changes: -BUPIVACAINE HCL 0.25% 30ML VIAL As Ordered ONE; -ISOVUE-M 300 61% 15ML VIAL As Ordered ONE; -LIDOCAINE 1% SDV 30ML VIAL As Ordered ONE
[2022-04-01 15:40] LABS: APPEARANCE, URINE CLOUDY (CLEAR); BACTERIA, URINE AUTO NEGATIVE (NEGATIVE); BILIRUBIN, URINE AUTO NEGATIVE (NEGATIVE); BLOOD, URINE BLOOD NEGATIVE (NEGATIVE); COLOR, URINE AMBER (YELLOW); GLUCOSE, URINE (UA) AUTO NEGATIVE (NEGATIVE); KETONE, URINE AUTO NEGATIVE (NEGATIVE); LEUKOCYTE ESTERASE, URINE AUTO 2+ (NEGATIVE); MUCUS, URINE SMALL (NEGATIVE); NITRITE, URINE AUTO NEGATIVE (NEGATIVE); PROTEIN, URINE AUTO 1+ mg/dL (NEGATIVE); RBC, URINE AUTO 8 /HPF (0-3); RENAL EPITHELIAL CELLS 1 /HPF; SPECIFIC GRAVITY URINE AUTO 1.019 (1.002-1.035); SQUAMOUS EPITHELIAL CELL UR AU 5 /HPF (0-6); UROBILINOGEN, URINE AUTO 0.2 mg/dL (0.0-2.0); WBC, URINE AUTO 152 /HPF (0-3)
== END ==
LOC: M LAB 14:27
PROVIDERS: ATTEND Urology
DX: N39.41 Urge incontinence (principal)

== ENCOUNTER → 2022-04-01 | Outpatient (CLI) | payer MEDICARE, OTHER ==
[2022-04-01 15:43] LABS: ALBUMIN 3.5 GM/DL (3.2-5.2); ALT/SGPT 35 U/L (12-78); BILIRUBIN,TOTAL 0.4 MG/DL (0.2-1.0); BLOOD UREA NITROGEN 16 MG/DL (7-18); CALCIUM LEVEL 8.8 MG/DL (8.8-10.2); CARBON DIOXIDE LEVEL 30 MEQ/L (21-32); CHLORIDE LEVEL 107 MEQ/L (98-107); CHOLESTEROL LEVEL 103 MG/DL (<200); CHOLESTEROL RISK RATIO 2.395 (<5); FREE T4 0.76 NG/DL (0.76-1.46); GLOMERULAR FILTRATION RATE > 60.0 (>45); GLUCOSE, FASTING 141 MG/DL (70-100); HDL CHOLESTEROL 43 MG/DL (>40); NON-HDL-C 60 MG/DL; POTASSIUM SERUM 4.1 MEQ/L (3.5-5.1); SODIUM LEVEL 140 MEQ/L (136-145); TOTAL PROTEIN 6.7 GM/DL (6.4-8.2); TRIGLYCERIDES LEVEL 308 MG/DL (<150)
[2022-04-01 15:51] LABS: TOTAL 25(OH) VITAMIN D 23.3 NG/ML (30.0-100.0)
[2022-04-01 17:40] LABS: HEMOGLOBIN A1c 6.6 %
[2022-04-03 08:10] LABS: LDL DIRECT 29 mg/dL (0-99)
== END ==
LOC: M LAB 14:24
PROVIDERS: ATTEND Nurse Practitioner Family
DX: E55.9 Vitamin D deficiency, unspecified (principal)

== ENCOUNTER → 2022-04-24 | Outpatient (CLI) | payer MEDICARE, OTHER | LOC: M PAIN 08:45 | PROVIDERS: ATTEND Anesthesiology | DX: G89.4 Chronic pain syndrome (principal); M79.10 Myalgia, unspecified site; M48.062 Spinal stenosis, lumbar region with neurogenic claudication; E11.9 Type 2 diabetes mellitus without complications; Z88.8 Allergy status to other drugs, medicaments and biological substances; Z91.09 Other allergy status, other than to drugs and biological substances; E66.01 Morbid (severe) obesity due to excess calories; Z68.43 Body mass index [BMI] 50.0-59.9, adult; Z79.4 Long term (current) use of insulin; Z79.82 Long term (current) use of aspirin; Z79.899 Other long term (current) drug therapy ==

== ENCOUNTER → 2022-04-26 | Outpatient (CLI) | payer MEDICARE, OTHER ==
[2022-04-26 18:23] LABS: AMORPHOUS SEDIMENT SMALL (NEGATIVE); APPEARANCE, URINE CLOUDY (CLEAR); BACTERIA, URINE AUTO NEGATIVE (NEGATIVE); BILIRUBIN, URINE AUTO NEGATIVE (NEGATIVE); BLOOD, URINE BLOOD 1+ (NEGATIVE); CALCIUM OXALATE CRYSTALS SMALL; COLOR, URINE AMBER (YELLOW); GLUCOSE, URINE (UA) AUTO NEGATIVE (NEGATIVE); KETONE, URINE AUTO NEGATIVE (NEGATIVE); LEUKOCYTE ESTERASE, URINE AUTO 3+ (NEGATIVE); NITRITE, URINE AUTO POSITIVE (NEGATIVE); PROTEIN, URINE AUTO 3+ mg/dL (NEGATIVE); RBC, URINE AUTO 102 /HPF (0-3); SPECIFIC GRAVITY URINE AUTO 1.023 (1.002-1.035); SQUAMOUS EPITHELIAL CELL UR AU 1 /HPF (0-6); TRANSITIONAL EPITHELIAL AUTO 2 /HPF; UROBILINOGEN, URINE AUTO 0.2 mg/dL (0.0-2.0); WBC, URINE AUTO TNTC /HPF (0-3)
== END ==
LOC: M LAB 16:42
PROVIDERS: ATTEND Urology
DX: R30.9 Painful micturition, unspecified (principal)

== ENCOUNTER → 2022-05-23 | Outpatient (CLI) | payer MEDICARE, OTHER | LOC: M PLALAB 15:10 → M PLAIMG 15:10 | PROVIDERS: ATTEND Student in an Organized Health Care Education/Training Program | DX: M25.532 Pain in left wrist (principal) ==

== ENCOUNTER → 2022-05-29 | Outpatient (CLI) | payer MEDICARE, OTHER ==
[2022-05-29 12:58] LABS: APPEARANCE, URINE CLOUDY (CLEAR); BACTERIA, URINE AUTO NEGATIVE (NEGATIVE); BILIRUBIN, URINE AUTO NEGATIVE (NEGATIVE); BLOOD, URINE BLOOD NEGATIVE (NEGATIVE); COLOR, URINE AMBER (YELLOW); GLUCOSE, URINE (UA) AUTO NEGATIVE (NEGATIVE); KETONE, URINE AUTO NEGATIVE (NEGATIVE); LEUKOCYTE ESTERASE, URINE AUTO 2+ (NEGATIVE); NITRITE, URINE AUTO NEGATIVE (NEGATIVE); PROTEIN, URINE AUTO NEGATIVE (NEGATIVE); RBC, URINE AUTO 0 /HPF (0-3); SQUAMOUS EPITHELIAL CELL UR AU 2 /HPF (0-6); UROBILINOGEN, URINE AUTO 0.2 mg/dL (0.0-2.0); WBC, URINE AUTO 25 /HPF (0-3)
== END ==
LOC: M LAB 12:09
PROVIDERS: ATTEND Urology
DX: R39.9 Unspecified symptoms and signs involving the genitourinary system (principal)

== ENCOUNTER → 2022-07-03 | Outpatient (REF) | payer OTHER ==
[2022-07-03 17:41] LABS: APPEARANCE, URINE MANUAL TURBID (CLEAR); BILIRUBIN, URINE MANUAL NEGATIVE (NEGATIVE); BLOOD URINE MANUAL POSITIVE (NEGATIVE); COLOR, URINE MANUAL YELLOW (YELLOW); GLUCOSE, URINE (UA) MANUAL NEGATIVE (NEGATIVE); KETONE, URINE MANUAL NEGATIVE (NEGATIVE); LEUKOCYTE ESTERASE, URINE MAN POSITIVE (NEGATIVE); NITRITE, URINE MANUAL POSITIVE (NEGATIVE); PROTEIN, URINE MANUAL 2+ mg/dL (NEGATIVE); UROBILINOGEN, URINE MANUAL NORMAL (NORMAL)
[2022-07-03 18:03] LABS: BACTERIA, URINE LARGE AMOUNT; HYALINE CAST, URINE NONE SEEN /lpf (0-1); SQUAMOUS EPITHELIAL CELL URINE SMALL AMOUNT /hpf (SMALL AMT); TRANSITIONAL EPI CELLS, URINE SMALL AMOUNT /hpf; WBC, URINE TNTC /hpf (0-3)
== END ==
LOC: M LAB REF 16:38
PROVIDERS: ATTEND Urology
DX: R39.9 Unspecified symptoms and signs involving the genitourinary system (principal)

== ENCOUNTER → 2022-07-09 | Outpatient (CLI) | payer MEDICARE, OTHER | LOC: M PAIN 08:15 | PROVIDERS: ATTEND Anesthesiology | DX: M79.18 Myalgia, other site (principal); G89.29 Other chronic pain; E11.40 Type 2 diabetes mellitus with diabetic neuropathy, unspecified; I10 Essential (primary) hypertension; Z88.8 Allergy status to other drugs, medicaments and biological substances; Z91.09 Other allergy status, other than to drugs and biological substances; Z79.4 Long term (current) use of insulin; Z79.82 Long term (current) use of aspirin; Z79.899 Other long term (current) drug therapy ==

== ENCOUNTER → 2022-08-02 | Outpatient (CLI) | payer MEDICARE, OTHER ==
[~2022-08-02] MED LIST changes: +COLE625T17 PO; -COLE625TAB PO
== END ==
LOC: M TMPAIN 15:15 → M PAIN 15:15
PROVIDERS: ATTEND Anesthesiology
DX: M54.9 Dorsalgia, unspecified (principal); G89.29 Other chronic pain; M79.10 Myalgia, unspecified site; E11.9 Type 2 diabetes mellitus without complications; I10 Essential (primary) hypertension; Z88.8 Allergy status to other drugs, medicaments and biological substances; Z91.09 Other allergy status, other than to drugs and biological substances; Z79.4 Long term (current) use of insulin; Z79.82 Long term (current) use of aspirin; Z79.899 Other long term (current) drug therapy

== ENCOUNTER → 2022-08-04 | Outpatient (CLI) | payer MEDICARE, OTHER | LOC: M LABSMTC 11:50 | PROVIDERS: ATTEND Anesthesiology | DX: Z20.828 Contact with and (suspected) exposure to other viral communicable diseases (principal); Z11.59 Encounter for screening for other viral diseases ==

== ENCOUNTER → 2022-08-06 | Outpatient (CLI) | payer MEDICARE, OTHER ==
[~2022-08-06] MED LIST changes: +BUPIVACAINE HCL 0.25% 10ML VIAL As Ordered ONE; +BUPIVACAINE HCL 0.25% 30ML VIAL As Ordered ONE; +TRIAMCINOLONE ACETONIDE SUSP 40 MG/ML VIAL (J3301) As Ordered ONE
== END ==
LOC: M PAIN 10:30
PROVIDERS: ATTEND Anesthesiology
DX: M79.18 Myalgia, other site (principal); G89.29 Other chronic pain; E11.9 Type 2 diabetes mellitus without complications; I10 Essential (primary) hypertension; Z96.641 Presence of right artificial hip joint; Z88.8 Allergy status to other drugs, medicaments and biological substances; Z91.09 Other allergy status, other than to drugs and biological substances; E66.01 Morbid (severe) obesity due to excess calories; Z68.43 Body mass index [BMI] 50.0-59.9, adult; Z79.4 Long term (current) use of insulin; Z79.82 Long term (current) use of aspirin; Z79.899 Other long term (current) drug therapy
CPT/HCPCS: 20552; J3301

== ENCOUNTER → 2022-08-22 | Outpatient (CLI) | payer MEDICARE, OTHER ==
[~2022-08-22] MED LIST changes: -BUPIVACAINE HCL 0.25% 10ML VIAL As Ordered ONE; -BUPIVACAINE HCL 0.25% 30ML VIAL As Ordered ONE; -TRIAMCINOLONE ACETONIDE SUSP 40 MG/ML VIAL (J3301) As Ordered ONE
== END ==
LOC: M PAIN 10:30
PROVIDERS: ATTEND Nurse Practitioner Family
DX: M79.10 Myalgia, unspecified site (principal); M51.16 Intervertebral disc disorders with radiculopathy, lumbar region; G89.29 Other chronic pain; E11.9 Type 2 diabetes mellitus without complications; I10 Essential (primary) hypertension; Z96.641 Presence of right artificial hip joint; Z88.8 Allergy status to other drugs, medicaments and biological substances; Z91.09 Other allergy status, other than to drugs and biological substances; E66.01 Morbid (severe) obesity due to excess calories; Z68.43 Body mass index [BMI] 50.0-59.9, adult; Z79.4 Long term (current) use of insulin; Z79.82 Long term (current) use of aspirin; Z79.899 Other long term (current) drug therapy

== ENCOUNTER → 2022-09-09 | Outpatient (CLI) | payer MEDICARE, OTHER ==
[~2022-09-09] MED LIST changes: -FENO134C16 PO; +FENO134C20 PO
== END ==
LOC: M SOG 10:39
PROVIDERS: ATTEND Orthopaedic Surgery Hand Surgery
DX: M79.645 Pain in left finger(s) (principal)

== ENCOUNTER → 2022-09-18 | Outpatient (CLI) | payer MEDICARE, OTHER ==
[~2022-09-18] MED LIST changes: +SUPETAB56 PO
== END ==
LOC: M PAIN 16:00
PROVIDERS: ATTEND Anesthesiology
DX: M47.816 Spondylosis without myelopathy or radiculopathy, lumbar region (principal); G89.29 Other chronic pain; E11.9 Type 2 diabetes mellitus without complications; I10 Essential (primary) hypertension; Z96.641 Presence of right artificial hip joint; Z88.8 Allergy status to other drugs, medicaments and biological substances; Z91.09 Other allergy status, other than to drugs and biological substances; E66.01 Morbid (severe) obesity due to excess calories; Z68.43 Body mass index [BMI] 50.0-59.9, adult; Z79.4 Long term (current) use of insulin; Z79.82 Long term (current) use of aspirin; Z79.899 Other long term (current) drug therapy
CPT/HCPCS: 81000; 87086; G0463

== ENCOUNTER → 2022-09-18 | Outpatient (REF) | payer MEDICARE, OTHER ==
[~2022-09-18] MED LIST changes: -SUPETAB56 PO
[2022-09-19 10:53] LABS: APPEARANCE, URINE MANUAL HAZY (CLEAR); COLOR, URINE MANUAL YELLOW (YELLOW)
[2022-09-19 10:54] LABS: BILIRUBIN, URINE MANUAL NEGATIVE (NEGATIVE); BLOOD URINE MANUAL TRACE (NEGATIVE); GLUCOSE, URINE (UA) MANUAL NEGATIVE (NEGATIVE); KETONE, URINE MANUAL NEGATIVE (NEGATIVE); LEUKOCYTE ESTERASE, URINE MAN POSITIVE (NEGATIVE); NITRITE, URINE MANUAL NEGATIVE (NEGATIVE); PROTEIN, URINE MANUAL TRACE mg/dL (NEGATIVE); SPECIFIC GRAVITY,URINE MANUAL 1.025 (1.002-1.035); UROBILINOGEN, URINE MANUAL NORMAL (NORMAL)
[2022-09-19 11:16] LABS: BACTERIA, URINE SMALL AMOUNT; RBC, URINE 0-1 /hpf (0-3); RENAL EPITHELIAL CELLS, URINE SMALL AMOUNT /hpf; SQUAMOUS EPITHELIAL CELL URINE MOD AMOUNT /hpf (SMALL AMT); TRANSITIONAL EPI CELLS, URINE SMALL AMOUNT /hpf; WBC, URINE 20-30 /hpf (0-3)
[2022-09-19 11:17] LABS: AMORPHOUS SEDIMENT, URINE SMALL AMOUNT (NEGATIVE); HYALINE CAST, URINE NONE SEEN /lpf (0-1)
== END ==
LOC: M LAB REF 09:26
PROVIDERS: ATTEND Urology
DX: N39.0 Urinary tract infection, site not specified (principal)

== ENCOUNTER 2022-10-04 20:50 | Emergency (ER) | payer MEDICARE, OTHER ==
[~2022-10-04] VITALS: Ht 162.6 cm; Wt 142.4 kg
[2022-10-04] MEDS ORDERED: SUPETAB56 PO (21:02)
[2022-10-05] MEDS ORDERED: BOOSTRIX/ADACEL VACCINE (DIPHTH/PERTUSS/ACELL/TETANUS) 0.5ML SYR IM ONE (00:35)
[2022-10-05 00:41] VITALS: BP 155/75
== END 2022-10-05 00:43 | disposition home or self-care (01) ==
LOC: M ED 20:50
DX: S68.622A Partial traumatic transphalangeal amputation of right middle finger, initial encounter (principal); S68.124A Partial traumatic metacarpophalangeal amputation of right ring finger, initial encounter; E11.9 Type 2 diabetes mellitus without complications; I10 Essential (primary) hypertension; E78.5 Hyperlipidemia, unspecified; Z79.4 Long term (current) use of insulin; Z79.82 Long term (current) use of aspirin; Z88.8 Allergy status to other drugs, medicaments and biological substances; Z91.048 Other nonmedicinal substance allergy status; Z79.811 Long term (current) use of aromatase inhibitors; Z79.899 Other long term (current) drug therapy

== ENCOUNTER → 2022-11-25 | Outpatient (CLI) | payer MEDICARE, OTHER ==
[~2022-11-25] MED LIST changes: +SUPETAB56 PO
== END ==
LOC: M LABSMTC 10:44
PROVIDERS: ATTEND Anesthesiology
DX: Z01.818 Encounter for other preprocedural examination (principal)

== ENCOUNTER → 2022-11-26 | Outpatient (CLI) | payer MEDICARE, OTHER ==
[~2022-11-26] MED LIST changes: +BUPIVACAINE HCL 0.25% 30ML VIAL As Ordered ONE; +ISOVUE-M 300 61% 15ML VIAL As Ordered ONE; +LIDOCAINE 1% SDV 30ML VIAL As Ordered ONE
== END ==
LOC: M PAIN 14:30
PROVIDERS: ATTEND Anesthesiology
DX: M47.816 Spondylosis without myelopathy or radiculopathy, lumbar region (principal); G89.29 Other chronic pain; E11.9 Type 2 diabetes mellitus without complications; I10 Essential (primary) hypertension; Z96.641 Presence of right artificial hip joint; Z88.8 Allergy status to other drugs, medicaments and biological substances; Z91.09 Other allergy status, other than to drugs and biological substances; E66.01 Morbid (severe) obesity due to excess calories; Z68.43 Body mass index [BMI] 50.0-59.9, adult; Z79.4 Long term (current) use of insulin; Z79.82 Long term (current) use of aspirin; Z79.899 Other long term (current) drug therapy
CPT/HCPCS: 64493; 64494; Q9967

== ENCOUNTER → 2022-12-17 | Outpatient (CLI) | payer MEDICARE, OTHER ==
[~2022-12-17] MED LIST changes: -BUPIVACAINE HCL 0.25% 30ML VIAL As Ordered ONE; -ISOVUE-M 300 61% 15ML VIAL As Ordered ONE; -LIDOCAINE 1% SDV 30ML VIAL As Ordered ONE
[2022-12-17 11:22] LABS: APPEARANCE, URINE MANUAL CLOUDY (CLEAR); COLOR, URINE MANUAL ORANGE (YELLOW)
[2022-12-17 11:24] LABS: BILIRUBIN, URINE MANUAL OBSCURED (NEGATIVE); GLUCOSE, URINE (UA) MANUAL NEGATIVE (NEGATIVE); KETONE, URINE MANUAL OBSCURED mg/dL (NEGATIVE); LEUKOCYTE ESTERASE, URINE MAN OBSCURED (NEGATIVE); NITRITE, URINE MANUAL OBSCURED (NEGATIVE); PROTEIN, URINE MANUAL OBSCURED mg/dL (NEGATIVE); UROBILINOGEN, URINE MANUAL OBSCURED mg/dl (NORMAL)
[2022-12-17 11:25] LABS: BLOOD URINE MANUAL POSITIVE (NEGATIVE)
[2022-12-17 11:40] LABS: BACTERIA, URINE LARGE AMOUNT; HYALINE CAST, URINE NONE SEEN /lpf (0-1); MUCUS, URINE SMALL AMOUNT (NEGATIVE); RBC, URINE TNTC /hpf (0-3); SQUAMOUS EPITHELIAL CELL URINE SMALL AMOUNT /hpf (SMALL AMT); WBC, URINE TNTC /hpf (0-3)
== END ==
LOC: M LAB 10:13
PROVIDERS: ATTEND Urology
DX: N39.0 Urinary tract infection, site not specified (principal)

== ENCOUNTER → 2022-12-26 | Outpatient (CLI) | payer MEDICARE, OTHER | LOC: M PAIN 13:30 | PROVIDERS: ATTEND Anesthesiology | DX: M47.816 Spondylosis without myelopathy or radiculopathy, lumbar region (principal); G89.29 Other chronic pain; I10 Essential (primary) hypertension; Z96.641 Presence of right artificial hip joint; Z88.8 Allergy status to other drugs, medicaments and biological substances; Z91.09 Other allergy status, other than to drugs and biological substances; Z79.4 Long term (current) use of insulin; Z79.82 Long term (current) use of aspirin; Z79.85 Long-term (current) use of injectable non-insulin antidiabetic drugs; Z79.899 Other long term (current) drug therapy ==

== ENCOUNTER → 2023-01-09 | Outpatient (CLI) | payer MEDICARE, OTHER | LOC: M PAIN 17:00 | PROVIDERS: ATTEND Anesthesiology | DX: M47.816 Spondylosis without myelopathy or radiculopathy, lumbar region (principal); G89.29 Other chronic pain; E11.9 Type 2 diabetes mellitus without complications; I10 Essential (primary) hypertension; Z96.641 Presence of right artificial hip joint; Z88.8 Allergy status to other drugs, medicaments and biological substances; Z91.09 Other allergy status, other than to drugs and biological substances; Z79.4 Long term (current) use of insulin; Z79.82 Long term (current) use of aspirin; Z79.899 Other long term (current) drug therapy ==

== ENCOUNTER → 2023-01-16 | Outpatient (CLI) | payer MEDICARE, OTHER | LOC: M PAIN 17:00 | PROVIDERS: ATTEND Anesthesiology | DX: M47.816 Spondylosis without myelopathy or radiculopathy, lumbar region (principal); G89.29 Other chronic pain; E11.9 Type 2 diabetes mellitus without complications; I10 Essential (primary) hypertension; Z96.641 Presence of right artificial hip joint; Z88.8 Allergy status to other drugs, medicaments and biological substances; Z91.09 Other allergy status, other than to drugs and biological substances; Z79.4 Long term (current) use of insulin; Z79.82 Long term (current) use of aspirin; Z79.899 Other long term (current) drug therapy ==

== ENCOUNTER → 2023-01-29 | Outpatient (CLI) | payer MEDICARE, OTHER ==
[2023-01-29 14:08] LABS: APPEARANCE, URINE CLOUDY (CLEAR); BACTERIA, URINE AUTO NEGATIVE (NEGATIVE); BILIRUBIN, URINE AUTO NEGATIVE (NEGATIVE); BLOOD, URINE BLOOD NEGATIVE (NEGATIVE); COLOR, URINE AMBER (YELLOW); GLUCOSE, URINE (UA) AUTO NEGATIVE (NEGATIVE); KETONE, URINE AUTO NEGATIVE (NEGATIVE); LEUKOCYTE ESTERASE, URINE AUTO 3+ (NEGATIVE); MUCUS, URINE SMALL (NEGATIVE); NITRITE, URINE AUTO NEGATIVE (NEGATIVE); PROTEIN, URINE AUTO NEGATIVE (NEGATIVE); RBC, URINE AUTO 11 /HPF (0-3); SPECIFIC GRAVITY URINE AUTO 1.018 (1.002-1.035); SQUAMOUS EPITHELIAL CELL UR AU 1 /HPF (0-6); UROBILINOGEN, URINE AUTO 0.2 mg/dL (0.0-2.0); WBC, URINE AUTO 19 /HPF (0-3)
== END ==
LOC: M LAB REF 12:32 → M LAB 12:32
PROVIDERS: ATTEND Urology
DX: N39.0 Urinary tract infection, site not specified (principal)

== ENCOUNTER → 2023-02-05 | Outpatient (CLI) | payer MEDICARE, OTHER | LOC: M PAIN 16:45 | PROVIDERS: ATTEND Anesthesiology | DX: Z53.29 Procedure and treatment not carried out because of patient's decision for other reasons (principal) ==

== ENCOUNTER → 2023-02-25 | Outpatient (CLI) | payer MEDICARE, OTHER ==
[~2023-02-25] MED LIST changes: +BUPIVACAINE HCL 0.25% 30ML VIAL As Ordered ONE; +LIDOCAINE 1% SDV 30ML VIAL As Ordered ONE; +NORCO, ANEXSIA 5/325MG TABLET (HYDROcodone/ACETAMINOPHEN) As Ordered ONE; +diazePAM 2 MG TAB As Ordered ONE
== END ==
LOC: M PAIN 13:30
PROVIDERS: ATTEND Anesthesiology
DX: M47.816 Spondylosis without myelopathy or radiculopathy, lumbar region (principal); E11.9 Type 2 diabetes mellitus without complications; E78.5 Hyperlipidemia, unspecified; I10 Essential (primary) hypertension; F41.9 Anxiety disorder, unspecified; Z79.4 Long term (current) use of insulin; Z79.899 Other long term (current) drug therapy; Z88.8 Allergy status to other drugs, medicaments and biological substances; Z91.048 Other nonmedicinal substance allergy status
CPT/HCPCS: 64635; 64636; G0463; J1100

== ENCOUNTER → 2023-03-03 | Outpatient (REF) | payer MEDICARE, OTHER ==
[~2023-03-03] MED LIST changes: -BUPIVACAINE HCL 0.25% 30ML VIAL As Ordered ONE; -LIDOCAINE 1% SDV 30ML VIAL As Ordered ONE; -NORCO, ANEXSIA 5/325MG TABLET (HYDROcodone/ACETAMINOPHEN) As Ordered ONE; -diazePAM 2 MG TAB As Ordered ONE
== END ==
LOC: M LAB REF 17:23
PROVIDERS: ATTEND Urology
DX: N39.0 Urinary tract infection, site not specified (principal)

== ENCOUNTER → 2023-03-12 | Outpatient (CLI) | payer MEDICARE, OTHER | LOC: M PAIN 15:00 | PROVIDERS: ATTEND Anesthesiology | DX: M43.06 Spondylolysis, lumbar region (principal); G89.29 Other chronic pain; E11.9 Type 2 diabetes mellitus without complications; I10 Essential (primary) hypertension; Z86.59 Personal history of other mental and behavioral disorders; Z96.641 Presence of right artificial hip joint; Z88.8 Allergy status to other drugs, medicaments and biological substances; Z91.09 Other allergy status, other than to drugs and biological substances; Z79.4 Long term (current) use of insulin; Z79.82 Long term (current) use of aspirin; Z79.899 Other long term (current) drug therapy ==

== ENCOUNTER → 2023-03-14 | Outpatient (REF) | payer OTHER | LOC: M SFHCPLAZ 17:11 | PROVIDERS: ATTEND Family Medicine | DX: L57.8 Other skin changes due to chronic exposure to nonionizing radiation (principal) ==

== ENCOUNTER → 2023-03-28 | Outpatient (CLI) | payer MEDICARE, OTHER | LOC: M PAIN 10:30 | PROVIDERS: ATTEND Anesthesiology | DX: M51.16 Intervertebral disc disorders with radiculopathy, lumbar region (principal); M54.50 Low back pain, unspecified; M79.10 Myalgia, unspecified site; G89.29 Other chronic pain; E11.9 Type 2 diabetes mellitus without complications; I10 Essential (primary) hypertension; Z86.59 Personal history of other mental and behavioral disorders; Z96.641 Presence of right artificial hip joint; Z88.8 Allergy status to other drugs, medicaments and biological substances; Z91.09 Other allergy status, other than to drugs and biological substances; E66.01 Morbid (severe) obesity due to excess calories; Z68.43 Body mass index [BMI] 50.0-59.9, adult; Z79.4 Long term (current) use of insulin; Z79.82 Long term (current) use of aspirin; Z79.899 Other long term (current) drug therapy | CPT/HCPCS: 76000; G0463 ==

== ENCOUNTER → 2023-04-11 | Outpatient (CLI) | payer MEDICARE, OTHER, MEDICAID ==
[2023-04-11 17:56] LABS: APPEARANCE, URINE CLOUDY (CLEAR); BACTERIA, URINE AUTO NEGATIVE (NEGATIVE); BILIRUBIN, URINE AUTO NEGATIVE (NEGATIVE); BLOOD, URINE BLOOD NEGATIVE (NEGATIVE); COLOR, URINE AMBER (YELLOW); GLUCOSE, URINE (UA) AUTO NEGATIVE (NEGATIVE); KETONE, URINE AUTO NEGATIVE (NEGATIVE); LEUKOCYTE ESTERASE, URINE AUTO TRACE (NEGATIVE); NITRITE, URINE AUTO NEGATIVE (NEGATIVE); PROTEIN, URINE AUTO NEGATIVE (NEGATIVE); RBC, URINE AUTO 2 /HPF (0-3); SPECIFIC GRAVITY URINE AUTO 1.019 (1.002-1.035); SQUAMOUS EPITHELIAL CELL UR AU 4 /HPF (0-6); UROBILINOGEN, URINE AUTO 0.2 mg/dL (0.0-2.0); WBC, URINE AUTO 19 /HPF (0-3)
== END ==
LOC: M LAB 16:39
PROVIDERS: ATTEND Urology
DX: N39.41 Urge incontinence (principal)

== ENCOUNTER → 2023-04-25 | Outpatient (CLI) | payer MEDICARE, OTHER ==
[~2023-04-25] MED LIST changes: +NORCO, ANEXSIA 5/325MG TABLET (HYDROcodone/ACETAMINOPHEN) As Ordered ONE; +TRIAMCINOLONE ACETONIDE SUSP 40MG/ML 1ML VIAL As Ordered ONE; +diazePAM 5MG TABLET As Ordered ONE
== END ==
LOC: M PAIN 14:00
PROVIDERS: ATTEND Anesthesiology
DX: M79.18 Myalgia, other site (principal); G89.29 Other chronic pain; E11.9 Type 2 diabetes mellitus without complications; I10 Essential (primary) hypertension; Z86.59 Personal history of other mental and behavioral disorders; Z96.641 Presence of right artificial hip joint; Z88.8 Allergy status to other drugs, medicaments and biological substances; Z91.09 Other allergy status, other than to drugs and biological substances; E66.01 Morbid (severe) obesity due to excess calories; Z68.43 Body mass index [BMI] 50.0-59.9, adult; Z79.4 Long term (current) use of insulin; Z79.82 Long term (current) use of aspirin; Z79.899 Other long term (current) drug therapy
CPT/HCPCS: 20552; J3301

== ENCOUNTER → 2023-05-09 | Outpatient (CLI) | payer MEDICARE, OTHER ==
[~2023-05-09] MED LIST changes: +ISOVUE-M 300 61% 15ML VIAL As Ordered ONE; +LIDOCAINE 1% SDV 30ML VIAL As Ordered ONE; -TRIAMCINOLONE ACETONIDE SUSP 40MG/ML 1ML VIAL As Ordered ONE; +methylPREDNISolone SUSP 40MG/ML 1ML VIAL (DEPO MEDROL) As Ordered ONE
== END ==
LOC: M PAIN 12:00
PROVIDERS: ATTEND Anesthesiology
DX: M51.17 Intervertebral disc disorders with radiculopathy, lumbosacral region (principal); G89.29 Other chronic pain; E11.9 Type 2 diabetes mellitus without complications; I10 Essential (primary) hypertension; Z86.59 Personal history of other mental and behavioral disorders; Z88.8 Allergy status to other drugs, medicaments and biological substances; Z91.09 Other allergy status, other than to drugs and biological substances; E66.01 Morbid (severe) obesity due to excess calories; Z68.43 Body mass index [BMI] 50.0-59.9, adult; Z79.4 Long term (current) use of insulin; Z79.82 Long term (current) use of aspirin; Z79.85 Long-term (current) use of injectable non-insulin antidiabetic drugs; Z79.899 Other long term (current) drug therapy
CPT/HCPCS: 62323; J1030; Q9967

== ENCOUNTER 2023-06-05 00:43 | Emergency (ER) | payer MEDICARE, OTHER ==
[~2023-06-05] VITALS: Ht 162.6 cm; Wt 137.7 kg
[~2023-06-05 00:43] MED LIST changes: -ISOVUE-M 300 61% 15ML VIAL As Ordered ONE; -LIDOCAINE 1% SDV 30ML VIAL As Ordered ONE; -NORCO, ANEXSIA 5/325MG TABLET (HYDROcodone/ACETAMINOPHEN) As Ordered ONE; -diazePAM 5MG TABLET As Ordered ONE; -methylPREDNISolone SUSP 40MG/ML 1ML VIAL (DEPO MEDROL) As Ordered ONE
[2023-06-05] MEDS ORDERED: TIRZ5PEN (00:56)
[2023-06-05] MEDS ORDERED: ATOM25CA2 (00:56)
[2023-06-05] MEDS ORDERED: MYRB50TA (00:56)
[2023-06-05] MEDS ORDERED: NITR100C2 (00:57)
[2023-06-05 03:49] VITALS: BP 141/71; TEMP 97.9; O2SAT 100
== END 2023-06-05 04:20 | disposition left against medical advice (07) ==
LOC: M ED 00:43
DX: Z53.21 Procedure and treatment not carried out due to patient leaving prior to being seen by health care provider (principal)

== ENCOUNTER → 2023-06-18 | Outpatient (CLI) | payer MEDICARE, OTHER ==
[~2023-06-18] MED LIST changes: +ATOM25CA2; +MYRB50TA; +NITR100C2; +TIRZ5PEN
== END ==
LOC: M PAIN 09:00
PROVIDERS: ATTEND Anesthesiology
DX: M51.17 Intervertebral disc disorders with radiculopathy, lumbosacral region (principal); M48.062 Spinal stenosis, lumbar region with neurogenic claudication; G89.29 Other chronic pain; E11.9 Type 2 diabetes mellitus without complications; I10 Essential (primary) hypertension; Z86.59 Personal history of other mental and behavioral disorders; Z96.641 Presence of right artificial hip joint; Z88.8 Allergy status to other drugs, medicaments and biological substances; Z91.09 Other allergy status, other than to drugs and biological substances; Z79.4 Long term (current) use of insulin; Z79.82 Long term (current) use of aspirin; Z79.85 Long-term (current) use of injectable non-insulin antidiabetic drugs; Z79.899 Other long term (current) drug therapy

== ENCOUNTER → 2023-08-20 | Outpatient (CLI) | payer MEDICARE, OTHER ==
[~2023-08-20] MED LIST changes: +ACET1TAB55 PO; +ATOM60CA2 PO; +AZEL0.1S NARES; +BRIM1OPD OU; +CROM4SOL4 OU; -INSULADS INJ; +INSULADS SC; +LOPE2CAP PO; -MYRB50TA; +MYRB50TA PO; +TIRZ7.5P SQ; +XALA0.007 OU
== END ==
LOC: M PAIN 11:00
PROVIDERS: ATTEND Anesthesiology
DX: M79.10 Myalgia, unspecified site (principal); M47.816 Spondylosis without myelopathy or radiculopathy, lumbar region; G89.29 Other chronic pain; E11.9 Type 2 diabetes mellitus without complications; Z80.1 Family history of malignant neoplasm of trachea, bronchus and lung; Z88.8 Allergy status to other drugs, medicaments and biological substances; Z91.09 Other allergy status, other than to drugs and biological substances; E66.01 Morbid (severe) obesity due to excess calories; Z68.42 Body mass index [BMI] 45.0-49.9, adult; Z79.4 Long term (current) use of insulin; Z79.82 Long term (current) use of aspirin; Z79.85 Long-term (current) use of injectable non-insulin antidiabetic drugs; Z79.899 Other long term (current) drug therapy

== ENCOUNTER → 2023-09-05 | Outpatient (CLI) | payer MEDICARE, OTHER ==
[~2023-09-05] MED LIST changes: +ACET-683 PO; +ATOM80CA6 PO; +AZO1CAP PO; +BUME1TAB3 PO; +FAMO20TA5 PO; +LIDO1PAD TOP; +OCUV1CAP4 PO; +OMEP40CA5 PO; +SUPETAB44 PO
== END ==
LOC: M PAIN 11:15
PROVIDERS: ATTEND Anesthesiology
DX: M47.816 Spondylosis without myelopathy or radiculopathy, lumbar region (principal); M54.50 Low back pain, unspecified; M79.18 Myalgia, other site; G89.29 Other chronic pain; E11.9 Type 2 diabetes mellitus without complications; I10 Essential (primary) hypertension; E78.5 Hyperlipidemia, unspecified; R32 Unspecified urinary incontinence; F41.9 Anxiety disorder, unspecified; L51.1 Stevens-Johnson syndrome; Z79.82 Long term (current) use of aspirin; Z79.4 Long term (current) use of insulin; Z79.899 Other long term (current) drug therapy; Z88.8 Allergy status to other drugs, medicaments and biological substances; Z91.048 Other nonmedicinal substance allergy status

== ENCOUNTER → 2023-09-11 | Outpatient (REF) | payer MEDICARE, OTHER | LOC: M SFHCPLAZ 14:44 | PROVIDERS: ATTEND Student in an Organized Health Care Education/Training Program | DX: Z01.818 Encounter for other preprocedural examination (principal) ==

== ENCOUNTER → 2023-09-12 | Outpatient (REF) | payer MEDICARE, OTHER | LOC: M SFHCPLAZ 09:06 | PROVIDERS: ATTEND Internal Medicine Hematology | DX: Z53.9 Procedure and treatment not carried out, unspecified reason (principal) ==

== ENCOUNTER → 2023-09-12 | Outpatient (CLI) | payer MEDICARE, OTHER ==
[~2023-09-12] MED LIST changes: +OXYC1TAB23 PO
[2023-09-12 10:40] LABS: HEMOGLOBIN A1c 5.7 % (4.0-6.0)
[2023-09-12 10:52] LABS: ALBUMIN 3.7 G/DL (3.2-5.2); ALKALINE PHOSPHATASE 108 U/L (46-116); ALT/SGPT 28 U/L (7.0-40); AST/SGOT 20 U/L (<34); BILIRUBIN,TOTAL 0.7 MG/DL (0.3-1.2); BLOOD UREA NITROGEN 18 MG/DL (9-23); CALCIUM LEVEL 9.6 MG/DL (8.3-10.6); CARBON DIOXIDE LEVEL 29 MMOL/L (20-31); CHLORIDE LEVEL 104 MMOL/L (98-107); CHOLESTEROL LEVEL 107 MG/DL (<200); CHOLESTEROL RISK RATIO 2.67 (<5); CREATININE FOR GFR 0.83 MG/DL (0.55-1.30); GLOMERULAR FILTRATION RATE > 60.0 (>45); GLUCOSE, FASTING 103 MG/DL (74-106); POTASSIUM SERUM 4.1 MMOL/L (3.5-5.1); SODIUM LEVEL 139 MMOL/L (136-145); TOTAL 25(OH) VITAMIN D 45.4 NG/ML (20.0-100.0); TOTAL PROTEIN 6.6 G/DL (5.7-8.2); TRIGLYCERIDES LEVEL 155 MG/DL (<150)
== END ==
LOC: M LAB 09:33
PROVIDERS: ATTEND Student in an Organized Health Care Education/Training Program
DX: Z01.818 Encounter for other preprocedural examination (principal); E78.00 Pure hypercholesterolemia, unspecified; E78.1 Pure hyperglyceridemia; I10 Essential (primary) hypertension; Z68.43 Body mass index [BMI] 50.0-59.9, adult; Z79.899 Other long term (current) drug therapy; R06.02 Shortness of breath

== ENCOUNTER 2023-09-17 06:00 | Day surgery (SDC) | payer MEDICARE, OTHER ==
[~2023-09-17] VITALS: Ht 162.6 cm; Wt 128.9 kg
[~2023-09-17 06:00] MED LIST changes: -OXYC1TAB23 PO
[2023-09-17] MEDS ORDERED: fentaNYL 100 MCG/2 ML INJECTION As Ordered ONE (07:18)
[2023-09-17] MEDS ORDERED: propofoL 200 MG/20 ML VIAL As Ordered ONE (07:18)
[2023-09-17] MEDS ORDERED: MIDAZOLAM INJ 2MG/2ML VIAL As Ordered ONE (07:18)
[2023-09-17] MEDS ORDERED: LIDOCAINE 2% 100MG/5ML SDV (FOR ANES.) As Ordered ONE (07:18)
[2023-09-17] MEDS ORDERED: METOCLOPRAMIDE INJ 10MG/2ML VIAL As Ordered ONE (07:19)
[2023-09-17] MEDS ORDERED: ROPIvacaine 0.5% 30ML VIAL PN ONE (07:20)
[2023-09-17] MEDS ORDERED: LIDOCAINE 1% SDV 5ML VIAL PN ONE (07:20)
[2023-09-17] MEDS ORDERED: ONDANSETRON 4MG 2ML VIAL As Ordered ONE (07:20)
[2023-09-17] MEDS ORDERED: fentaNYL 100 MCG/2 ML INJECTION IV PRN ×2 (07:20→09:25)
[2023-09-17] MEDS ORDERED: EPINEPHrine INJ 1 MG/ML 1ML AMP PN ONE (07:20)
[2023-09-17] MEDS ORDERED: ceFAZolin SOD 1 GM in D5W MINI-BAG PLUS 50 ML IV ONE (07:25)
[2023-09-17] MEDS ORDERED: ceFAZolin SOD 2 GM in IV 1 EA IV ONE (07:25)
[2023-09-17] MEDS ORDERED: LR 1,000 ML IV SCH ×2 (07:30→09:25)
[2023-09-17] MEDS ORDERED: BACITRACIN OINTMENT 30GM TUBE As Ordered ONE (07:31)
[2023-09-17] MEDS: MIDAZOLAM INJ 2MG/2ML VIAL IV PRN ×2 (07:38→07:39)
[2023-09-17] MEDS ORDERED: ACETAMINOPHEN 1000MG 100ML IV BAG As Ordered ONE (07:57)
[2023-09-17] MEDS ORDERED: OXYC1TAB23 PO (09:18)
[2023-09-17] MEDS ORDERED: oxyCODONE 5MG TAB PO PRN (09:25)
[2023-09-17] MEDS ORDERED: ONDANSETRON 4MG 2ML VIAL IV PRN (09:25)
[2023-09-17 10:30] VITALS: BP 129/76; TEMP 97.1; O2SAT 94
== END 2023-09-17 11:50 | disposition home or self-care (01) ==
LOC: M SDC 06:00
PROVIDERS: ATTEND Orthopaedic Surgery Hand Surgery
DX: M18.9 Osteoarthritis of first carpometacarpal joint, unspecified (principal); I10 Essential (primary) hypertension; E10.9 Type 1 diabetes mellitus without complications; E78.5 Hyperlipidemia, unspecified; Z79.899 Other long term (current) drug therapy; Z85.42 Personal history of malignant neoplasm of other parts of uterus
CPT/HCPCS: 25310; 25447; 76000; 88300; C1713; J0131; J0690; J1100; J2250; J2405; J2765; J3010

== ENCOUNTER → 2023-09-22 | Outpatient (CLI) | payer MEDICARE, OTHER ==
[~2023-09-22] MED LIST changes: +OXYC1TAB23 PO
== END ==
LOC: M SOG 07:54
PROVIDERS: ATTEND Physician Assistant
DX: M79.645 Pain in left finger(s) (principal)

== ENCOUNTER → 2023-10-09 | Outpatient (CLI) | payer MEDICARE, OTHER | LOC: M PAIN 15:45 | PROVIDERS: ATTEND Anesthesiology | DX: M47.816 Spondylosis without myelopathy or radiculopathy, lumbar region (principal); G89.29 Other chronic pain; E11.9 Type 2 diabetes mellitus without complications; I10 Essential (primary) hypertension; E78.5 Hyperlipidemia, unspecified; R32 Unspecified urinary incontinence; F41.9 Anxiety disorder, unspecified; Z79.4 Long term (current) use of insulin; Z79.899 Other long term (current) drug therapy; Z88.8 Allergy status to other drugs, medicaments and biological substances; Z91.048 Other nonmedicinal substance allergy status ==

== ENCOUNTER → 2023-10-14 | Outpatient (CLI) | payer MEDICARE, OTHER | LOC: M SOG 07:54 | PROVIDERS: ATTEND Physician Assistant | DX: Z47.89 Encounter for other orthopedic aftercare (principal); Z98.890 Other specified postprocedural states ==

== ENCOUNTER → 2023-10-24 | Outpatient (CLI) | payer MEDICARE, OTHER | LOC: M SOG 08:03 | PROVIDERS: ATTEND Physician Assistant | DX: M79.645 Pain in left finger(s) (principal) ==

== ENCOUNTER → 2023-11-14 | Outpatient (CLI) | payer MEDICARE, OTHER | LOC: M PAIN 11:45 | PROVIDERS: ATTEND Anesthesiology | DX: M47.816 Spondylosis without myelopathy or radiculopathy, lumbar region (principal); G89.29 Other chronic pain; Z85.44 Personal history of malignant neoplasm of other female genital organs; Z80.1 Family history of malignant neoplasm of trachea, bronchus and lung; Z88.8 Allergy status to other drugs, medicaments and biological substances; Z91.09 Other allergy status, other than to drugs and biological substances; Z79.4 Long term (current) use of insulin; Z79.85 Long-term (current) use of injectable non-insulin antidiabetic drugs; Z79.899 Other long term (current) drug therapy ==

== ENCOUNTER → 2023-12-02 | Outpatient (CLI) | payer MEDICARE, OTHER ==
[~2023-12-02] MED LIST changes: +E-Z-GAS II EFFERVESCENT PACKET (SODIUM BICARB./CITRIC ACID/SIMETHICONE) As Ordered ONE; +E-Z-HD 98% w/w 340GM SUSP BTL As Ordered ONE; +E-Z-PAQUE 96% w/w SUSP 176GM BTL As Ordered ONE
== END ==
LOC: M RAD 10:23
PROVIDERS: ATTEND Internal Medicine Gastroenterology
DX: R12 Heartburn (principal)

== ENCOUNTER → 2023-12-12 | Outpatient (CLI) | payer MEDICARE, OTHER ==
[~2023-12-12] MED LIST changes: -E-Z-GAS II EFFERVESCENT PACKET (SODIUM BICARB./CITRIC ACID/SIMETHICONE) As Ordered ONE; -E-Z-HD 98% w/w 340GM SUSP BTL As Ordered ONE; -E-Z-PAQUE 96% w/w SUSP 176GM BTL As Ordered ONE
[2023-12-12 15:20] LABS: CALCIUM LEVEL 10.3 MG/DL (8.3-10.6); CHOLESTEROL RISK RATIO 2.4 (<5); CREATININE FOR GFR 1.06 MG/DL (0.55-1.30); HDL CHOLESTEROL 43.2 MG/DL (>40); NON-HDL-C 60.8 MG/DL; POTASSIUM SERUM 4.6 MMOL/L (3.5-5.1)
[2023-12-12 15:22] LABS: TOTAL 25(OH) VITAMIN D 42.8 NG/ML (20.0-100.0)
== END ==
LOC: M LAB 14:10
PROVIDERS: ATTEND Student in an Organized Health Care Education/Training Program
DX: I10 Essential (primary) hypertension (principal); E78.00 Pure hypercholesterolemia, unspecified; E78.1 Pure hyperglyceridemia; Z68.43 Body mass index [BMI] 50.0-59.9, adult; Z79.899 Other long term (current) drug therapy

== ENCOUNTER → 2023-12-12 | Outpatient (CLI) | payer MEDICARE, OTHER | LOC: M PAIN 15:00 | PROVIDERS: ATTEND Nurse Practitioner Family | DX: M51.17 Intervertebral disc disorders with radiculopathy, lumbosacral region (principal); Z79.891 Long term (current) use of opiate analgesic; M79.10 Myalgia, unspecified site; G89.29 Other chronic pain; E11.9 Type 2 diabetes mellitus without complications; I10 Essential (primary) hypertension; E78.5 Hyperlipidemia, unspecified; F41.9 Anxiety disorder, unspecified; Z79.899 Other long term (current) drug therapy; Z88.8 Allergy status to other drugs, medicaments and biological substances; Z91.048 Other nonmedicinal substance allergy status ==

== ENCOUNTER → 2023-12-16 | Outpatient (CLI) | payer MEDICARE, OTHER | LOC: M SOG 07:52 | PROVIDERS: ATTEND Physician Assistant | DX: M79.645 Pain in left finger(s) (principal) ==

== ENCOUNTER → 2023-12-31 | Outpatient (CLI) | payer MEDICARE, OTHER | LOC: M PAIN 13:00 | PROVIDERS: ATTEND Anesthesiology | DX: M54.50 Low back pain, unspecified (principal); M47.816 Spondylosis without myelopathy or radiculopathy, lumbar region; M79.18 Myalgia, other site; I10 Essential (primary) hypertension; E11.9 Type 2 diabetes mellitus without complications; Z79.02 Long term (current) use of antithrombotics/antiplatelets; Z79.4 Long term (current) use of insulin; Z79.891 Long term (current) use of opiate analgesic; Z79.899 Other long term (current) drug therapy; Z88.8 Allergy status to other drugs, medicaments and biological substances; Z91.048 Other nonmedicinal substance allergy status ==

== ENCOUNTER → 2024-02-13 | Outpatient (CLI) | payer MEDICARE, OTHER ==
[~2024-02-13] MED LIST changes: +NORCO, ANEXSIA 5/325MG TABLET (HYDROcodone/ACETAMINOPHEN) As Ordered ONE; +TRIAMCINOLONE ACETONIDE SUSP 40MG/ML 1ML VIAL As Ordered ONE; +diazePAM 5MG TABLET As Ordered ONE
== END ==
LOC: M PAIN 14:15
PROVIDERS: ATTEND Anesthesiology
DX: M79.18 Myalgia, other site (principal); G89.29 Other chronic pain; E11.9 Type 2 diabetes mellitus without complications; I10 Essential (primary) hypertension; E78.5 Hyperlipidemia, unspecified; F41.9 Anxiety disorder, unspecified; Z79.899 Other long term (current) drug therapy; Z88.8 Allergy status to other drugs, medicaments and biological substances; Z91.048 Other nonmedicinal substance allergy status
CPT/HCPCS: 20552; J0665; J3301

== ENCOUNTER → 2024-02-17 | Outpatient (CLI) | payer MEDICARE, OTHER ==
[~2024-02-17] MED LIST changes: -NORCO, ANEXSIA 5/325MG TABLET (HYDROcodone/ACETAMINOPHEN) As Ordered ONE; -TRIAMCINOLONE ACETONIDE SUSP 40MG/ML 1ML VIAL As Ordered ONE; -diazePAM 5MG TABLET As Ordered ONE
== END ==
LOC: M WHC 13:09
PROVIDERS: ATTEND Student in an Organized Health Care Education/Training Program
DX: Z00.00 Encounter for general adult medical examination without abnormal findings (principal); M47.816 Spondylosis without myelopathy or radiculopathy, lumbar region; Z78.0 Asymptomatic menopausal state

== ENCOUNTER → 2024-02-17 | Outpatient (CLI) | payer MEDICARE, OTHER | LOC: M PLAIMG 13:16 | PROVIDERS: ATTEND Anesthesiology | DX: M47.816 Spondylosis without myelopathy or radiculopathy, lumbar region (principal) ==

== ENCOUNTER → 2024-02-27 | Outpatient (REF) | payer MEDICARE, OTHER ==
[2024-02-27 18:21] LABS: BASO # 0.1 10^3/uL (0.0-0.2); BASO % 0.9 % (0.0-1.0); EOS # 0.2 10^3/uL (0.0-0.5); EOS % 2.5 % (0.0-3.0); HEMATOCRIT 40.8 % (36.0-47.0); LYMPH # 2.6 10^3/uL (1.5-5.0); LYMPH % 29.1 % (24.0-44.0); MEAN CORPUSCULAR HEMOGLOBIN 27.8 pg (27.0-33.0); MEAN CORPUSCULAR HGB CONC 31.9 g/dl (32.0-36.5); MEAN CORPUSCULAR VOLUME 87.4 fl (80.0-96.0); MONO # 0.7 10^3/uL (0.0-0.8); NEUTROPHILS # 5.3 10^3/uL (1.5-8.5); NEUTROPHILS % 59.2 % (36.0-66.0); PLATELET COUNT, AUTOMATED 339 10^3/uL (150-450); RED BLOOD COUNT 4.67 10^6/uL (4.00-5.40)
[2024-02-27 18:49] LABS: HEMOGLOBIN A1c 5.5 % (4.0-6.0)
[2024-02-27 18:56] LABS: ALBUMIN 3.5 G/DL (3.2-5.2); ALKALINE PHOSPHATASE 127 U/L (46-116); ALT/SGPT 23 U/L (7.0-40); AST/SGOT 15 U/L (<34); BILIRUBIN,TOTAL 0.7 MG/DL (0.3-1.2); BLOOD UREA NITROGEN 17 MG/DL (9-23); CALCIUM LEVEL 9.6 MG/DL (8.3-10.6); CARBON DIOXIDE LEVEL 29 MMOL/L (20-31); CHLORIDE LEVEL 101 MMOL/L (98-107); CREATININE FOR GFR 0.88 MG/DL (0.55-1.30); GLOMERULAR FILTRATION RATE > 60.0 (>45); GLUCOSE, FASTING 73 MG/DL (74-106); POTASSIUM SERUM 4.5 MMOL/L (3.5-5.1); SODIUM LEVEL 137 MMOL/L (136-145); THYROID STIMULATING HORMONE 2.808 uIU/ML (0.55-4.78); TOTAL PROTEIN 6.5 G/DL (5.7-8.2)
== END ==
LOC: M LABDRAWP 17:20
PROVIDERS: ATTEND Student in an Organized Health Care Education/Training Program
DX: Z01.818 Encounter for other preprocedural examination (principal); E11.9 Type 2 diabetes mellitus without complications

== ENCOUNTER → 2024-03-01 | Outpatient (CLI) | payer MEDICARE, OTHER ==
[~2024-03-01] MED LIST changes: +BARIUM SULFATE 700 MG TABLET (E-Z-DISK) As Ordered ONE; +E-Z-PAQUE 96% w/w SUSP 176GM BTL As Ordered ONE; +VARIBAR NECTAR 40% w/v 240ML SUSP BTL As Ordered ONE; +VARIBAR PUDDING 40% w/v 230ML TUBE As Ordered ONE
== END ==
LOC: M RAD 12:53
PROVIDERS: ATTEND Internal Medicine Gastroenterology
DX: R09.A2 Foreign body sensation, throat (principal)

== ENCOUNTER → 2024-04-26 | Outpatient (CLI) | payer MEDICARE, OTHER ==
[~2024-04-26] MED LIST changes: -BARIUM SULFATE 700 MG TABLET (E-Z-DISK) As Ordered ONE; -E-Z-PAQUE 96% w/w SUSP 176GM BTL As Ordered ONE; -VARIBAR NECTAR 40% w/v 240ML SUSP BTL As Ordered ONE; -VARIBAR PUDDING 40% w/v 230ML TUBE As Ordered ONE
== END ==
LOC: M PAIN 17:30
PROVIDERS: ATTEND Nurse Practitioner Family
DX: M79.10 Myalgia, unspecified site (principal); E11.9 Type 2 diabetes mellitus without complications; Z79.02 Long term (current) use of antithrombotics/antiplatelets; Z79.891 Long term (current) use of opiate analgesic; Z79.899 Other long term (current) drug therapy; Z88.8 Allergy status to other drugs, medicaments and biological substances; Z91.048 Other nonmedicinal substance allergy status

== ENCOUNTER → 2024-05-19 | Outpatient (CLI) | payer MEDICARE, MEDICAID ==
[2024-05-19 14:16] LABS: HEMOGLOBIN A1c 5.7 % (4.0-6.0)
[2024-05-19 14:29] LABS: CALCIUM LEVEL 9.7 MG/DL (8.3-10.6); CHOLESTEROL RISK RATIO 3.47 (<5); CREATININE FOR GFR 1.11 MG/DL (0.55-1.30); GLOMERULAR FILTRATION RATE 52.2 (>45); HDL CHOLESTEROL 31.4 MG/DL (>40); LDL CHOLESTEROL 26.4 MG/DL (<100); NON-HDL-C 77.6 MG/DL; POTASSIUM SERUM 4.4 MMOL/L (3.5-5.1)
== END ==
LOC: M LAB 11:11
PROVIDERS: ATTEND Student in an Organized Health Care Education/Training Program
DX: Z00.00 Encounter for general adult medical examination without abnormal findings (principal); Z79.899 Other long term (current) drug therapy

== ENCOUNTER → 2024-06-07 | Outpatient (CLI) | payer MEDICARE | LOC: M WHC 13:06 | PROVIDERS: ATTEND Student in an Organized Health Care Education/Training Program | DX: Z12.31 Encounter for screening mammogram for malignant neoplasm of breast (principal) ==

== ENCOUNTER → 2024-06-24 | Outpatient (CLI) | payer MEDICARE, OTHER ==
[~2024-06-24] MED LIST changes: +TRIAMCINOLONE ACETONIDE SUSP 40MG/ML 1ML VIAL As Ordered ONE
== END ==
LOC: M PAIN 16:30
PROVIDERS: ATTEND Anesthesiology
DX: M79.18 Myalgia, other site (principal); E11.9 Type 2 diabetes mellitus without complications; I10 Essential (primary) hypertension; E78.5 Hyperlipidemia, unspecified; F41.9 Anxiety disorder, unspecified; Z79.82 Long term (current) use of aspirin; Z79.4 Long term (current) use of insulin; Z79.899 Other long term (current) drug therapy; Z88.8 Allergy status to other drugs, medicaments and biological substances; Z91.048 Other nonmedicinal substance allergy status
CPT/HCPCS: 20552; J0665; J3301

== ENCOUNTER → 2024-07-26 | Outpatient (CLI) | payer MEDICARE, OTHER ==
[~2024-07-26] MED LIST changes: +GABA-1635 PO; -GABA800T4 PO; -TRIAMCINOLONE ACETONIDE SUSP 40MG/ML 1ML VIAL As Ordered ONE
[2024-07-26 13:45] LABS: APPEARANCE, URINE TURBID (CLEAR); BACTERIA, URINE AUTO 3+ (NEGATIVE); BILIRUBIN, URINE AUTO NEGATIVE (NEGATIVE); BLOOD, URINE BLOOD NEGATIVE (NEGATIVE); COLOR, URINE AMBER (YELLOW); GLUCOSE, URINE (UA) AUTO NEGATIVE (NEGATIVE); KETONE, URINE AUTO NEGATIVE (NEGATIVE); LEUKOCYTE ESTERASE, URINE AUTO 2+ (NEGATIVE); MUCUS, URINE SMALL (NEGATIVE); NITRITE, URINE AUTO POSITIVE (NEGATIVE); PROTEIN, URINE AUTO 2+ mg/dL (NEGATIVE); RBC, URINE AUTO 57 /HPF (0-3); SPECIFIC GRAVITY URINE AUTO 1.023 (1.002-1.035); SQUAMOUS EPITHELIAL CELL UR AU 25 /HPF (0-6); TRANSITIONAL EPITHELIAL AUTO 2 /HPF; UROBILINOGEN, URINE AUTO 0.2 mg/dL (0.0-2.0); WBC, URINE AUTO TNTC /HPF (0-3)
== END ==
LOC: M LAB 12:49
PROVIDERS: ATTEND Nurse Practitioner Family
DX: N39.0 Urinary tract infection, site not specified (principal)

== ENCOUNTER → 2024-07-26 | Outpatient (CLI) | payer MEDICARE, OTHER ==
[2024-07-26 14:02] LABS: CREATININE, URINE 186.8 MG/DL; MAU/CREAT RATIO 22.4 MCG/MG (0.0-30.0)
== END ==
LOC: M LAB 12:53
PROVIDERS: ATTEND Nurse Practitioner Family
DX: E11.65 Type 2 diabetes mellitus with hyperglycemia (principal); Z79.4 Long term (current) use of insulin; N39.0 Urinary tract infection, site not specified

== ENCOUNTER 2024-08-24 15:15 | Outpatient (RCR) | payer MEDICARE | END 2024-09-09 | LOC: M PT 15:15 | PROVIDERS: ATTEND Student in an Organized Health Care Education/Training Program | DX: R26.89 Other abnormalities of gait and mobility (principal); R29.6 Repeated falls ==

== ENCOUNTER 2024-10-04 11:27 | Day surgery (SDC) | payer MEDICARE ==
[~2024-10-04] VITALS: Ht 162.6 cm; Wt 113.7 kg
[~2024-10-04 11:27] MED LIST changes: -AZEL0.1S NARES; +AZEL137S8 NARES; +BUSP10TA PO; +HYDR1CAP25 PO; +LR 1,000 ML IV SCH; +MIDAZOLAM INJ 2MG/2ML VIAL As Ordered ONE; +STRA80CA PO; +TROSPIUM; +VASC1CAP2 PO; +VILAZADONE PO; +fentaNYL 100 MCG/2 ML INJECTION As Ordered ONE
[2024-10-04] MEDS: CYCLOPENTOLATE 1% OPHTH SOLN 2ML BTL OS SCH (13:10)
[2024-10-04] MEDS: TETRACAINE 0.5% OPHTH SOLN 4ML OS SCH (13:10)
[2024-10-04] MEDS: FLURBIPROFEN 0.03% OPHTH SOLN 2.5 ML OS SCH (13:10)
[2024-10-04] MEDS: PHENYLEPHRINE 2.5% OPHTH SOL 2ML OS SCH (13:10)
[2024-10-04] MEDS: LIDOCAINE 1% SDV 5ML VIAL As Ordered ONE (14:59)
[2024-10-04] MEDS: CEFUROXIME 1MG/0.1ML INTRACAMERAL INJ As Ordered ONE (15:01)
[2024-10-04] MEDS: TRYPAN BLUE 0.06 % 2.25 ML OPHTH SYR (VISIONBLUE) As Ordered ONE (15:02)
[2024-10-04 15:20] VITALS: BP 130/75; TEMP 97.2; O2SAT 98
== END 2024-10-04 15:50 | disposition home or self-care (01) ==
LOC: M SDC 11:27
PROVIDERS: ATTEND Ophthalmology
DX: H25.12 Age-related nuclear cataract, left eye (principal); H40.1122 Primary open-angle glaucoma, left eye, moderate stage; I10 Essential (primary) hypertension; E78.5 Hyperlipidemia, unspecified; E11.9 Type 2 diabetes mellitus without complications; K21.9 Gastro-esophageal reflux disease without esophagitis; F41.9 Anxiety disorder, unspecified; F32.A Depression, unspecified; F90.9 Attention-deficit hyperactivity disorder, unspecified type; Z92.3 Personal history of irradiation; Z88.2 Allergy status to sulfonamides; Z88.8 Allergy status to other drugs, medicaments and biological substances; Z85.42 Personal history of malignant neoplasm of other parts of uterus
CPT/HCPCS: 66174; 66984; C1889; J0697; J2250; J3010; V2632

== ENCOUNTER → 2024-10-13 | Outpatient (CLI) | payer MEDICARE ==
[~2024-10-13] MED LIST changes: -LR 1,000 ML IV SCH; -MIDAZOLAM INJ 2MG/2ML VIAL As Ordered ONE; -fentaNYL 100 MCG/2 ML INJECTION As Ordered ONE
== END ==
LOC: M PLAIMG 15:13
PROVIDERS: ATTEND Student in an Organized Health Care Education/Training Program
DX: M54.16 Radiculopathy, lumbar region (principal)

== ENCOUNTER → 2024-10-26 | Outpatient (CLI) | payer MEDICARE | LOC: M PAIN 12:45 | PROVIDERS: ATTEND Anesthesiology | DX: M47.816 Spondylosis without myelopathy or radiculopathy, lumbar region (principal); G89.29 Other chronic pain; E11.9 Type 2 diabetes mellitus without complications; I10 Essential (primary) hypertension; E78.5 Hyperlipidemia, unspecified; F41.9 Anxiety disorder, unspecified; N39.41 Urge incontinence; Z79.899 Other long term (current) drug therapy; Z88.2 Allergy status to sulfonamides; Z88.8 Allergy status to other drugs, medicaments and biological substances; Z91.048 Other nonmedicinal substance allergy status | CPT/HCPCS: 36415; 87088; 87186; G0463 ==

== ENCOUNTER → 2024-10-26 | Outpatient (CLI) | payer MEDICARE | LOC: M LAB 11:22 | PROVIDERS: ATTEND Urology | DX: N39.41 Urge incontinence (principal) ==

== ENCOUNTER → 2025-01-31 | Outpatient (CLI) | payer MEDICAID, MEDICARE, OTHER ==
[2025-01-31 17:36] LABS: ALBUMIN 3.5 G/DL (3.2-5.2); BLOOD UREA NITROGEN 14 MG/DL (9-23); CARBON DIOXIDE LEVEL 30 MMOL/L (20-31); CHLORIDE LEVEL 103 MMOL/L (98-107); CHOLESTEROL LEVEL 102 MG/DL (<200); CHOLESTEROL RISK RATIO 3.54 (<5); CREATININE FOR GFR 0.91 MG/DL (0.55-1.30); GLOMERULAR FILTRATION RATE > 60.0 (>45); GLUCOSE, FASTING 91 MG/DL (74-106); HDL CHOLESTEROL 28.8 MG/DL (>40); LDL CHOLESTEROL 1.6 MG/DL (<100); NON-HDL-C 73.2 MG/DL; POTASSIUM SERUM 4.3 MMOL/L (3.5-5.1); SODIUM LEVEL 142 MMOL/L (136-145); TRIGLYCERIDES LEVEL 358 MG/DL (<150)
[2025-01-31 17:52] LABS: HEMOGLOBIN A1c 5.4 % (4.0-6.0)
== END ==
LOC: M LAB 15:48
PROVIDERS: ATTEND Student in an Organized Health Care Education/Training Program
DX: E11.9 Type 2 diabetes mellitus without complications (principal); E78.1 Pure hyperglyceridemia; I10 Essential (primary) hypertension

== ENCOUNTER → 2025-01-31 | Outpatient (CLI) | payer MEDICAID, MEDICARE, OTHER | LOC: M LAB 15:52 | PROVIDERS: ATTEND Nurse Practitioner Family | DX: E11.9 Type 2 diabetes mellitus without complications (principal); E78.1 Pure hyperglyceridemia; I10 Essential (primary) hypertension ==

== ENCOUNTER → 2025-02-17 | Outpatient (CLI) | payer MEDICARE, MEDICAID ==
[~2025-02-17] MED LIST changes: +ISOVUE-370 76% 100ML VIAL ONE
[2025-02-17 15:49] LABS: BASO # 0.1 10^3/uL (0.0-0.2); BASO % 0.9 % (0.0-1.0); EOS # 0.2 10^3/uL (0.0-0.5); EOS % 3.3 % (0.0-3.0); HEMATOCRIT 37.6 % (36.0-47.0); HEMOGLOBIN 11.7 g/dl (12.0-15.5); LYMPH % 29.5 % (24.0-44.0); MEAN CORPUSCULAR HEMOGLOBIN 26.8 pg (27.0-33.0); MEAN CORPUSCULAR HGB CONC 31.1 g/dl (32.0-36.5); MEAN CORPUSCULAR VOLUME 86.2 fl (80.0-96.0); MONO # 0.4 10^3/uL (0.0-0.8); MONO % 6.2 % (2.0-8.0); NEUTROPHILS % 59.8 % (36.0-66.0); PLATELET COUNT, AUTOMATED 297 10^3/uL (150-450); RED BLOOD COUNT 4.36 10^6/uL (4.00-5.40); WHITE BLOOD COUNT 6.7 10^3/uL (4.0-10.0)
[2025-02-17 15:57] LABS: ERYTHROCYTE SEDIMENTATION RATE 13 mm/hr (0-30)
[2025-02-17 16:17] LABS: C REACTIVE PROTEIN QUANTITATIV < 0.50 MG/DL (<1.0)
[2025-02-17 16:18] LABS: ALBUMIN 3.5 G/DL (3.2-5.2); ALKALINE PHOSPHATASE 124 U/L (35-104); ALT/SGPT 28 U/L (7.0-40); AST/SGOT 24 U/L (<34); BILIRUBIN,TOTAL 0.6 MG/DL (0.3-1.2); BLOOD UREA NITROGEN 13 MG/DL (9-23); CARBON DIOXIDE LEVEL 30 MMOL/L (20-31); CHLORIDE LEVEL 105 MMOL/L (98-107); CREATININE FOR GFR 0.78 MG/DL (0.55-1.30); GLOMERULAR FILTRATION RATE 82.7 (>45); GLUCOSE, FASTING 92 MG/DL (74-106); POTASSIUM SERUM 4.5 MMOL/L (3.5-5.1); RHEUMATOID FACTOR QUANT < 3.5 IU/ML (<14); SODIUM LEVEL 142 MMOL/L (136-145); TOTAL PROTEIN 6.4 G/DL (5.7-8.2)
[2025-02-21 13:33] LABS: ANA PATTERN Nuclear, Homogeneous (NEGATIVE); ANA SCREEN, IFA POSITIVE (NEGATIVE)
== END ==
LOC: M PLAIMG 14:00
PROVIDERS: ATTEND Student in an Organized Health Care Education/Training Program
DX: M79.622 Pain in left upper arm (principal); M50.322 Other cervical disc degeneration at C5-C6 level; M50.221 Other cervical disc displacement at C4-C5 level
CPT/HCPCS: 36415; 72052; 73201; 80053; 85025; 85652; 86038; 86039; 86140; 86431; Q9967

== ENCOUNTER → 2025-07-15 | Outpatient (CLI) | payer MEDICARE, MEDICAID ==
[~2025-07-15] MED LIST changes: -BRIM1OPD OU; +BRIM5DRO25 OU; +ESTR4INS VA; -IMVE4SUP VA; -ISOVUE-370 76% 100ML VIAL ONE
[2025-07-15 16:03] LABS: ESTIMATED AVERAGE GLUCOSE 117.0 MG/DL (60-110)
== END ==
LOC: M LAB 15:15
PROVIDERS: ATTEND Student in an Organized Health Care Education/Training Program
DX: E11.9 Type 2 diabetes mellitus without complications (principal)

== ENCOUNTER → 2025-07-29 | Outpatient (CLI) | payer MEDICARE, MEDICAID | LOC: M PLAIMG 13:49 | PROVIDERS: ATTEND Student in an Organized Health Care Education/Training Program | DX: R01.1 Cardiac murmur, unspecified (principal) ==

== ENCOUNTER → 2025-08-15 | Outpatient (CLI) | payer MEDICARE, MEDICAID | LOC: M WHC 14:52 | PROVIDERS: ATTEND Student in an Organized Health Care Education/Training Program | DX: Z12.31 Encounter for screening mammogram for malignant neoplasm of breast (principal) ==

== ENCOUNTER → 2025-09-23 | Outpatient (CLI) | payer MEDICARE, MEDICAID ==
[2025-09-23 16:39] LABS: ALT/SGPT 31.0 U/L (7.0-40); AST/SGOT 26.0 U/L (<34); CALCIUM LEVEL 8.6 MG/DL (8.3-10.6); CARBON DIOXIDE LEVEL 31.0 MMOL/L (20-31); CHLORIDE LEVEL 104.0 MMOL/L (98-107); CHOLESTEROL LEVEL 104.0 MG/DL (<200); CHOLESTEROL RISK RATIO 3.14 (<5); CREATININE FOR GFR 0.75 MG/DL (0.55-1.30); CREATININE, URINE 167.6 MG/DL; GLOMERULAR FILTRATION RATE 86.1 (>45); LDL CHOLESTEROL 17.9 MG/DL (<100); MALB URINE SIEMENS 12.0 MG/L; MAU/CREAT RATIO 7.1 MCG/MG (0.0-30.0); NON-HDL-C 70.9 MG/DL; POTASSIUM SERUM 4.0 MMOL/L (3.5-5.1); SODIUM LEVEL 143.0 MMOL/L (136-145); TRIGLYCERIDES LEVEL 265.0 MG/DL (<150)
[2025-09-23 16:41] LABS: FREE T4 1.07 NG/DL (0.89-1.76); TOTAL 25(OH) VITAMIN D 44.2 NG/ML (20.0-100.0)
[2025-09-25 06:53] LABS: LDL DIRECT 32 mg/dL (<100)
== END ==
LOC: M LAB 15:25
PROVIDERS: ATTEND Nurse Practitioner Family
DX: E11.65 Type 2 diabetes mellitus with hyperglycemia (principal); N32.81 Overactive bladder; E55.9 Vitamin D deficiency, unspecified; Z79.4 Long term (current) use of insulin; Z79.899 Other long term (current) drug therapy

== ENCOUNTER → 2025-09-23 | Outpatient (CLI) | payer MEDICARE, MEDICAID | LOC: M LAB 15:29 | PROVIDERS: ATTEND Urology | DX: N32.81 Overactive bladder (principal) ==